=== PATIENT | male | born 1970 | race Two or more races ===

== ENCOUNTER 2020-04-06 06:04 | Emergency (ER) | payer OTHER, SELFPAY ==
[2020-04-06 06:16] VITALS: BP 117/89; PULSE 102; RESP 17; TEMP 36.4; O2SAT 95; BMI 27.2
[2020-04-06 06:33] VITALS: BP 117/89; PULSE 102; RESP 17; TEMP 36.6; O2SAT 97
--- NOTE | 2020-04-06 06:37 | ED_ITS ---
HPI - Psych General Chief Complaint: Psychiatric Symptoms Stated Complaint: CRISIS,ETOH INTOXICATION Time Seen by Provider: 04/06/20 06:37 Source: patient and EMS Mode of arrival: EMS Limitations: other (intoxication) History of Present Illness MD complaint: feels depressed, anxiety and substance abuse Onset (ago): day(s) (1) Duration: constant History of same: Yes Relieving factors: none Exacerbating factors: none Context: recent alcohol abuse Associated psychiatric symptoms: depression Associated symptoms: denies other symptoms Treatments prior to arrival: none Related Data Previous Rx's Medication Instructions Recorded clonidine HCl 0.1 mg tablet 0.1 mg PO DAILY #90 tab 03/18/20 fluoxetine 20 mg capsule 20 mg PO QAM #90 cap 03/18/20 nabumetone 500 mg tablet 500 mg PO BID #180 tab 03/18/20 Allergies Allergy/AdvReac Type Severity Reaction Status Date / Time haloperidol [From HALDOL] Allergy Intermediate TONGUE Unverified 02/15/20 14:48 SWELLING Review of Systems Review of Systems: Constitutional : No Fever, No Chills ENT/Mouth : No Ear Pain, No Nasal Congestion, No sore throat Eyes: No Eye Pain, No Swelling, No Redness Cardiovascular : No Chest Pain, No SOB Respiratory : No Cough, No Sputum, No Dyspnea Gastrointestinal : No Nausea, No Vomiting, No Diarrhea, No Hematochezia, No Melena Genitourinary : No Dysuria, No Urinary Frequency, No Hematuria Musculoskeletal : No Myalgias Skin : No Skin Lesions, No rash Neuro : No Weakness, No Numbness, No Paresthesias, No Dizziness, No Headache Psych : positive Anxiety, positive Depression, no SI/HI All other systems reviewed and are negative [facility] Past Medical History Attestation statement: The following information was validated with the patient. Medical History Alcoholism Bipolar 1 disorder Mood disorder Social History Social History (Updated 04/06/20 @ 06:38 by Sherry Carpenter DO) Alcohol intake: current Smoking Status: Current every day smoker Advance Directives: No Advance Directives Information Provided: No Physical Exam Vital Signs: Vital Signs: Last Vital Signs Temp 97.8 F 04/06/20 06:33 Pulse 102 H 04/06/20 06:33 Resp 17 04/06/20 06:33 BP 117/89 04/06/20 06:33 Pulse Ox 97 04/06/20 06:33 Body Mass Index 27.2 Appearance: Alert. Oriented X3. No acute distress. Eyes: Pupils equal, round and reactive to light. ENT: Pharynx normal. Neck: Normal inspection. Neck supple. CVS: Normal heart rate and rhythm. Pulses normal. Respiratory: No respiratory distress. Breath sounds normal. Abdomen: Soft and nontender. Skin: Skin warm and dry. Normal skin color. Normal skin turgor. Extremities: No lower extremity edema. No calf ttp Psych: positive anxiety and depression, no HI, when asked about SI do what you want with me. Neuro: Oriented X 3. No motor deficit. No sensory deficit. Course Course Course Narrative: N to see patient at his request c/o depression and some vague SI signed out to oncoming provider pending N MDM - Psych MDM Narrative Medical decision making narrative: 49 yo male with alcoholism and bipolar here asking for help, very vague, typical presentation for Cl - comes in intoxicated alludes to SI then once sober improves and is generally cleared by N. At this time he is calm will give him his dose of seroquel and reassess, I have low suspicion for SI at this time. Lab Data Labs: Lab Results 04/06/20 Range/Units 06:51 Urine Opiates Screen Not Detected (Not Detect) Ur Barbiturates Screen Not Detected (Not Detect) Ur Phencyclidine Scrn Not Detected (Not Detect) Ur Amphetamines Screen Not Detected (Not Detect) U Benzodiazepines Scrn Not Detected (Not Detect) Urine Cocaine Screen Not Detected (Not Detect) U Marijuana (THC) Screen Not Detected (Not Detect) Discharge Plan Discharge Clinical Impression: Alcohol intoxication Qualifiers: Complication of substance-induced condition: uncomplicated Qualified Code(s): F10.920 - Alcohol use, unspecified with intoxication, uncomplicated Patient Disposition: Home, Self-Care Instructions: Abuse of Alcohol (ED) Additional Instructions: return to ED for any worsening symptoms or concerns Prescriptions: No Action clonidine HCl 0.1 mg tablet 0.1 mg PO DAILY Qty: 90 RF: 3 fluoxetine 20 mg capsule 20 mg PO QAM Qty: 90 RF: 0 nabumetone 500 mg tablet 500 mg PO BID Qty: 180 RF: 0
--- NOTE | 2020-04-06 06:43 | PC.NURSE ---
Patient not so compliant with admission process needs lots of redirection, endorsees vague SI & vague plan, patient is under ETOH influence, provider just saw the patient, no new order at this time, will continue to monitor.
[2020-04-06] MEDS: QUEtiapine Fumarate 50 MG TABLET 100 MG PO (06:52)
--- NOTE | 2020-04-06 07:41 | PC.NURSE ---
Report received from [facility]. Pt awake, loud at times, demanding food, drink. Given as requested. Pt currently resting on bed.
[2020-04-06 07:50] LABS: Amphetamine Screen Urine Not Detected (Not Detect); Barbiturates, Urine Not Detected (Not Detect); Benzodiazepines Screen Urine Not Detected (Not Detect); Opiate Screen Urine Not Detected (Not Detect); Phencyclidine Screen Urine Not Detected (Not Detect)
[2020-04-06 07:51] LABS: Cannabinoid Screen Urine Not Detected (Not Detect); Cocaine Screen Urine Not Detected (Not Detect)
--- NOTE | 2020-04-06 13:35 | PC.NURSE ---
Pt awake, alert- ate lunch. Pt reports that he is still depressed, vague SI -'not ready to leave.' Dr Carpenter aware.
[2020-04-06 16:20] VITALS: BP 136/66; PULSE 93; RESP 18; TEMP 36.6; O2SAT 95
--- NOTE | 2020-04-06 17:58 | PC.NURSE ---
Pt resting, resp unlabored
--- NOTE | 2020-04-06 21:14 | PC.NURSE ---
[facility] called/updated about the patient, no ETA at this time but notified someone will see him tonight. Patient in bed appears sleeping, no distress observed/reported, will continue to monitor.
[2020-04-06 21:46] VITALS: BP 122/68; PULSE 72; RESP 18; TEMP 36.8; O2SAT 97
--- NOTE | 2020-04-06 22:36 | PC.NURSE ---
Patient in his room with [facility] clinician, patient seems fully engaged, no distress reported, will continue to monitor.
[2020-04-06] MEDS: QUEtiapine Fumarate 300 MG TABLET PO (23:03)
[2020-04-06] MEDS: QUEtiapine Fumarate 50 MG TABLET PO (23:03)
--- NOTE | 2020-04-06 23:20 | PC.NURSE ---
Patient requested his scheduled dose Seroquel 350 mg, patient is off his medication for just over a month, provider notified ordered serequel 350 mg/administered as ordered. Patient compliant with medication. No distress reported at this time. Will continue to monitor.
[2020-04-07 00:21] VITALS: BP 106/65; PULSE 90; RESP 17; TEMP 36.9; O2SAT 97
--- NOTE | 2020-04-07 00:34 | PC.NURSE ---
N updated patient's disposition, patient is in-patient EATS bed search, voluntary, in the event patient decided go home, patient can be discharged per [facility]. Will continue to monitor the patient.
--- NOTE | 2020-04-07 04:27 | PC.NURSE ---
Patient in bed appears sleeping, no distress observed/reported, respiration +/=/non-labored bilaterally, will continue to monitor, provide safety and comfort to promote healing.
--- NOTE | 2020-04-07 07:16 | PC.NURSE ---
RECEIVED REPORT FROM [facility]. PT SLEEPING ON STRETCHER IN POSITION OF COMFORT. SKIN WPD. RESPIRATIONS EVEN AND NON LABORED.
[2020-04-07 09:56] VITALS: RESP 16
--- NOTE | 2020-04-07 11:53 | PC.NURSE ---
PT REMAINS SLEEPING. SKIN WPD. RESPIRATIONS EVEN AND NON LABORED. WILL CONTINUE TO MONITOR.
[2020-04-07 12:00] VITALS: RESP 16
[2020-04-07 16:26] VITALS: BP 122/60; PULSE 68; RESP 18; O2SAT 97
--- NOTE | 2020-04-07 16:28 | PC.NURSE ---
PT DENIES SI/HI AT THIS TIME BUT THOUGHTS COME AND GO ALL DAY . DENIES PLAN AT THIS TIME. CALM & COOPERATIVE. RESTING COMFORTABLY. DINNER ORDERED. VS WNL.
--- NOTE | 2020-04-07 18:45 | PC.NURSE ---
100% DINNER TRAY CONSUMED
[2020-04-07 19:23] VITALS: BP 126/80; PULSE 66; RESP 18; TEMP 36.7; O2SAT 99
[2020-04-07] MEDS: QUEtiapine Fumarate 300 MG TABLET PO (20:06)
[2020-04-07] MEDS: hydrOXYzine HCL 25 MG TABLET PO (20:07)
[2020-04-07] MEDS: QUEtiapine Fumarate 50 MG TABLET PO (20:07)
--- NOTE | 2020-04-07 20:22 | PC.NURSE ---
pt medicated as per emr. given hygiene products.
--- NOTE | 2020-04-07 22:44 | PC.NURSE ---
PT IN HALLWAY, AGREEABLE WITH MOVE, RESTING COMFROTABLY
[2020-04-08] VITALS: BP 106/53; PULSE 66; RESP 18; TEMP 36.4; O2SAT 98
--- NOTE | 2020-04-08 00:54 | PC.NURSE ---
patient resting comfortably in hallway seen by megan is awaiting bed placement no c/o at this time
--- NOTE | 2020-04-08 03:14 | PC.NURSE ---
patient remains asleep no s/s of pain or discomfort awaiting bed search
[2020-04-08 04:00] VITALS: BP 96/54; PULSE 68; RESP 18; TEMP 36.9; O2SAT 98
[2020-04-08 06:00] VITALS: BP 116/68; PULSE 62; RESP 16; O2SAT 98
--- NOTE | 2020-04-08 06:42 | PC.NURSE ---
faxed patient summary to n office
[2020-04-08] MEDS: QUEtiapine Fumarate 100 MG TABLET PO (08:14)
--- NOTE | 2020-04-08 12:09 | PC.NURSE ---
resting quietly in [facility]ussell bed. calm. cooperative. steady on feet. skin pwd. unlabored resp. is aware of plan of care. no complaints at this time.
--- NOTE | 2020-04-08 14:35 | MHC.CARE ---
Addiction Consult Service note: This newswriter made aware by ED staff that [facility] secured EATS bed for patient at [facility]. Patient agreeable to being transported via [employer]. ED staff aware. Patient discharged and got in [employer] for transport to EATS bed.
== END 2020-04-08 14:36 | disposition home or self-care (01) ==
PROVIDERS: Emergency Medicine Emergency Medical Services; Emergency Provider Emergency Medicine; PCP Internal Medicine
DX: F33.1 Major depressive disorder, recurrent, moderate (principal); F10.920 Alcohol use, unspecified with intoxication, uncomplicated; F17.200 Nicotine dependence, unspecified, uncomplicated; Z71.6 Tobacco abuse counseling; Z79.899 Other long term (current) drug therapy
CPT/HCPCS: 80307; 99285

== ENCOUNTER 2020-06-03 23:54 | Inpatient (IN) | payer OTHER, SELFPAY ==
[2020-06-04] VITALS (12 sets, daily range): BP systolic 99–133; BP diastolic 53–80; PULSE 72–112; RESP 15–18; TEMP 36.2–37.1; O2SAT 95–100; BMI 27.0
--- NOTE | 2020-06-04 07:18 | CT_ITS ---
EXAMINATION: CT HEAD WITHOUT CONTRAST CLINICAL INFORMATION: Right upper extremity numbness. COMPARISON: CT scan of the head 08/04/2017. TECHNIQUE: Contiguous axial imaging was performed from the skull base to vertex without intravenous administration of contrast. This CT examination was performed using dose optimization techniques as appropriate, variously including the following: *Automated exposure control *Adjustment of mA and/or kV according to patient size (this includes techniques or standardized protocols for targeted exams where dose is matched to indication/reason for exam; i.e. extremities or head) *Use of iterative reconstruction technique DLP: 648 mGy-cm FINDINGS: There is a questionable focus of hypoattenuation involving the cortical flores matter of the left precentral gyrus in the hand motor association area. This finding is demonstrated on axial image 57 of 78 series 2. Flores-white matter differentiation is otherwise grossly preserved. No acute intracranial hemorrhage or abnormal extra axial collection. No intracranial mass effect or midline shift. Lateral and third ventricles are proportionate to the subarachnoid spaces. No hydrocephalus. The calvarium and skull base are intact. Mastoid air cells and middle ear cavities are well-aerated. Mild to moderate paranasal sinus disease primarily affecting the ethmoid air cells. CT/CT head/brain wo con IMPRESSION: Questionable abnormality involving the cortical flores matter of the left precentral gyrus in the hand motor association area. MRI of the brain can be obtained for better anatomic characterization of this finding.
--- NOTE | 2020-06-04 07:21 | ED.NEUROSD ---
HPI - Neuro Symptoms/Deficit General Chief Complaint: Neuro Symptoms/Deficit Stated Complaint: rt side weakness Time Seen by Provider: 06/04/20 06:49 Source: patient Mode of arrival: ambulatory History of Present Illness HPI Narrative: This is a 49-year-old male with history of bipolar who presents with complaints noticing right upper extremity numbness 2 days ago that resolved and then again yesterday noticed some numbness to the right side of his face that also resolved, patient denies any associated speech slurring or motor weakness on the affected side. Otherwise, he denies any fevers, chills, recent change in medications, abnormal movements. Related Data Home Medications Medication Instructions Recorded Confirmed Vistaril 25 mg PO NEEDED PRN 04/07/20 06/04/20 quetiapine [Seroquel] 100 mg PO QAM 04/07/20 06/04/20 quetiapine [Seroquel] 350 mg PO QPM 04/07/20 06/04/20 albuterol sulfate 2 puff INHALATION NEEDED PRN 06/04/20 06/04/20 fluoxetine 1 cap PO QAM 06/04/20 06/04/20 mirtazapine 1 tab PO BEDTIME 06/04/20 06/04/20 nabumetone 1 tab PO BID 06/04/20 06/04/20 naltrexone 1 tab PO DAILY 06/04/20 06/04/20 Allergies Allergy/AdvReac Type Severity Reaction Status Date / Time haloperidol [From HALDOL] Allergy Intermediate TONGUE Verified 04/07/20 14:51 SWELLING Review of Systems Review of Systems: Pertinent positives and negatives as stated in HPI 10 point review of systems otherwise negative. [facility] Past Medical History Source: nursing notes reviewed Medical History Alcoholism Bipolar 1 disorder Mood disorder Social History Social History Alcohol intake: current Alcohol intake frequency: 3 or more drinks per day Alcohol type: beer Smoking Status: Current every day smoker Smoked in Last 30 Days: Yes Use of substances other than those prescribed or required for medical reasons: No Advance Directives: No Physical Exam Vital Signs: Vital Signs: Last Vital Signs Temp 98.8 F 06/04/20 08:20 Pulse 88 01/05/21 08:20 Resp 16 06/04/20 08:20 BP 113/56 L 06/04/20 08:20 Pulse Ox 95 06/04/20 08:20 Body Mass Index 27.0 VITAL SIGNS: Reviewed. GENERAL: Well developed, well nourished, in no acute distress. HEAD: Normocephalic/atraumatic, EYES: PERRLA, EOMI intact without pain, no nystagmus/pallor/icterus noted OROPHARYNX: no oral lesions noted, posterior pharynx clear and non-erythematous without noted tonsillar enlargement/erythema/exudates NECK: Supple, no adenopathy LUNGS: Normal breath sounds. No adventitious sounds or accessory muscle use. SpO2<96> CARDIOVASCULAR: Regular rate and rhythm without noted murmurs, no JVD or lower extremity edema. ABDOMEN: Soft, non-tender, non-distended with bowel sounds. No rigidity. No guarding. No palpable masses or hernias noted SKIN: Inspection of the skin reveals no rashes, ulcerations, jaundice, pallor, or petechiae. NEUROLOGIC: Alert and oriented x 4. Strength and sensation to light touch were grossly intact x 4, no facial asymmetry, no pronator drift, cranial nerves 2-12 are grossly intact.. Course Course Course Narrative: This is a 49-year-old male with history and clinical presentation suggestive of possible neuropathy versus radiculopathy, but doubt intracranial ischemic event. However, will evaluate for possible ischemic event without residual affects via CT of the head, lab work. A review of CT of the head it is being read as a questionable abnormality in the cortical marrero matter of the left precentral gyrus in the hand motor associations area and recommendations are for MRI of the brain. Otherwise, all investigations were reviewed without significant findings. Discussed the case with inpatient hospitalist team who is agreeable with admission. Reevaluation(s) Reevaluation #1: Spoke with Dr Bone who agrees with proceeding with inpatient MRI and further evaluation for ischemia vs demyelination. MDM - Neuro Symptoms/Deficit Lab Data Result diagrams: 06/04/20 08:36 06/04/20 08:36 Labs: Lab Results 06/04/20 06/04/20 06/04/20 Range/Units 08:36 08:36 08:36 WBC 8.6 (4.8-10.8) X10*3/uL RBC 4.39 L (4.60-5.80) X10*6/uL Hgb 13.1 L (14.0-18.0) g/dl Hct 40.0 L (42-52) % MCV 91.1 (80-98) fL MCH 29.8 (27.0-33.0) pg MCHC 32.8 (31.0-36.0) g/dl RDW 13.2 (11.0-16.0) % Plt Count 326 (160-400) X10*3/uL MPV 8.9 L (9.4-12.4) fL Immature Gran % (Auto) 0.2 (0.0-0.4) % Neut % (Auto) 56.7 (45-73) % Lymph % (Auto) 33.6 (20-40) % Maries % (Auto) 5.3 (2-11) % Eos % (Auto) 3.9 (0-4) % Baso % (Auto) 0.3 (0-2) % Lymph # (Auto) 2.9 (1.2-4.9) X10*3/uL Maries # (Auto) 0.5 (0.1-1.2) X10*3/uL Eos # (Auto) 0.3 (0.0-0.4) X10*3/uL Baso # (Auto) 0.0 (0.0-0.2) X10*3/uL Abs Immat Gran (auto) 0.02 (0.00-0.03) X10*3/uL Absolute Neuts (auto) 4.9 (2.0-8.3) X10*3/uL Absolute Nucleated RBC 0.000 (0.0-0.012) X10*3/uL Nucleated RBC % (auto) 0.0 (0.0-0.2) /100WBC Sodium 137 (135-145) mmol/L Potassium 4.2 (3.3-5.1) mmol/l Chloride 107 (96-108) mmol/L Carbon Dioxide 22 (22-29) mmol/L Anion Gap 12 (12-20) BUN 11 (9-16) mg/dL Creatinine 0.81 (0.5-1.4) mg/dL Estim Creat Clear Calc 111.5 Estimated GFR > 60 Random Glucose 87 (60-115) mg/dL Calcium 8.3 L (8.4-10.2) mg/dL Total Bilirubin 0.3 (0.0-1.0) mg/dL AST 20 (5-37) U/L ALT 26 (0-40) U/L Alkaline Phosphatase 60 (39-117) U/L Total Protein 6.8 (6.5-8.0) g/dL Albumin 3.9 (3.5-5.0) g/dL Urine Color Urine Appearance Urine pH (5.0-8.0) Ur Specific [place] (1.005-1.025) Urine Protein (NEG-TRACE) MG/DL Urine Glucose (UA) (NEG) MG/DL Urine Ketones (NEG) MG/DL Urine Blood (NEG) Urine Nitrite (NEG) Ur Leukocyte Esterase (NEG) Urine Opiates Screen (Not Detect) Ur Barbiturates Screen (Not Detect) Ur Phencyclidine Scrn (Not Detect) Ur Amphetamines Screen (Not Detect) U Benzodiazepines Scrn (Not Detect) Urine Cocaine Screen (Not Detect) U Marijuana (THC) Screen (Not Detect) Ethyl Alcohol < 10 mg/dL 06/04/20 06/04/20 Range/Units 08:36 08:37 WBC (4.8-10.8) X10*3/uL RBC (4.60-5.80) X10*6/uL Hgb (14.0-18.0) g/dl Hct (42-52) % MCV (80-98) fL MCH (27.0-33.0) pg MCHC (31.0-36.0) g/dl RDW (11.0-16.0) % Plt Count (160-400) X10*3/uL MPV (9.4-12.4) fL Immature Gran % (Auto) (0.0-0.4) % Neut % (Auto) (45-73) % Lymph % (Auto) (20-40) % Maries % (Auto) (2-11) % Eos % (Auto) (0-4) % Baso % (Auto) (0-2) % Lymph # (Auto) (1.2-4.9) X10*3/uL Maries # (Auto) (0.1-1.2) X10*3/uL Eos # (Auto) (0.0-0.4) X10*3/uL Baso # (Auto) (0.0-0.2) X10*3/uL Abs Immat Gran (auto) (0.00-0.03) X10*3/uL Absolute Neuts (auto) (2.0-8.3) X10*3/uL Absolute Nucleated RBC (0.0-0.012) X10*3/uL Nucleated RBC % (auto) (0.0-0.2) /100WBC Sodium (135-145) mmol/L Potassium (3.3-5.1) mmol/l Chloride (96-108) mmol/L Carbon Dioxide (22-29) mmol/L Anion Gap (12-20) BUN (9-16) mg/dL Creatinine (0.5-1.4) mg/dL Estim Creat Clear Calc Estimated GFR Random Glucose (60-115) mg/dL Calcium (8.4-10.2) mg/dL Total Bilirubin (0.0-1.0) mg/dL AST (5-37) U/L ALT (0-40) U/L Alkaline Phosphatase (39-117) U/L Total Protein (6.5-8.0) g/dL Albumin (3.5-5.0) g/dL Urine Color YELLOW Urine Appearance CLEAR Urine pH 6.0 (5.0-8.0) Ur Specific [place] >= 1.030 H (1.005-1.025) Urine Protein NEG (NEG-TRACE) MG/DL Urine Glucose (UA) NEG (NEG) MG/DL Urine Ketones 5 (NEG) MG/DL Urine Blood NEG (NEG) Urine Nitrite NEG (NEG) Ur Leukocyte Esterase NEG (NEG) Urine Opiates Screen Not Detected (Not Detect) Ur Barbiturates Screen Not Detected (Not Detect) Ur Phencyclidine Scrn Not Detected (Not Detect) Ur Amphetamines Screen Not Detected (Not Detect) U Benzodiazepines Scrn Not Detected (Not Detect) Urine Cocaine Screen Not Detected (Not Detect) U Marijuana (THC) Screen Not Detected (Not Detect) Ethyl Alcohol mg/dL NIH Stroke Scale Internal: Initial- Upon Arrival Level of Consciousness: Alert Level of Consciousness Questions: Answers both questions correctly Level of Consciousness Commands: Performs both tasks correctly Best Gaze: Normal Visual: No visual loss Facial Palsy: Normal Motor Arm (Right): No drift Motor Arm (Left): No drift Motor Leg (Right): No drift Motor Leg (Left): No drift Limb Ataxia: Absent Sensory: Normal Best Language: No aphasia Dysarthia: Normal Extinction and Inattention: No abnormality Score: 0 Discharge Plan Discharge Clinical Impression: Brain TIA Patient Disposition: Admitted As Inpatient
[2020-06-04 08:43] LABS: MANUAL DIFF FLAG NO
[2020-06-04 08:44] LABS: Basophils Percent Auto 0.3 % (0-2); Eosinophils Absolute Auto 0.3 X10*3/uL (0.0-0.4); Eosinophils Percent Auto 3.9 % (0-4); Hemoglobin 13.1 g/dl (14.0-18.0); Imm Gran Abs Auto 0.02 X10*3/uL (0.00-0.03); Imm Gran Pct Auto 0.2 % (0.0-0.4); Lymphocytes Absolute Auto 2.9 X10*3/uL (1.2-4.9); Lymphocytes Percent Auto 33.6 % (20-40); Mean Corpuscular HGB Conc 32.8 g/dl (31.0-36.0); Mean Corpuscular Hemoglobin 29.8 pg (27.0-33.0); Mean Corpuscular Volume 91.1 fL (80-98); Mean Platelet Volume 8.9 fL (9.4-12.4); Monocytes Absolute Auto 0.5 X10*3/uL (0.1-1.2); Monocytes Percent Auto 5.3 % (2-11); Neutrophils Absolute Auto 4.9 X10*3/uL (2.0-8.3); Neutrophils Percent Auto 56.7 % (45-73); Platelet Count 326 X10*3/uL (160-400); Red Blood Count 4.39 X10*6/uL (4.60-5.80); Red Cell Distribution Width 13.2 % (11.0-16.0); White Blood Count 8.6 X10*3/uL (4.8-10.8)
[2020-06-04 08:50] LABS: Glucose Urine UA NEG (NEG); Leukocyte Esterase Urine NEG (NEG); Nitrite Urine NEG (NEG); Specific Gravity - Urine >= 1.030 (1.005-1.025); Urine Blood NEG (NEG); Urine Ketones 5 MG/DL (NEG); Urine Protein NEG (NEG-TRACE)
[2020-06-04 08:51] LABS: Appearance Urine CLEAR; Color Urine YELLOW
[2020-06-04 09:09] LABS: Ethanol < 10 mg/dL
[2020-06-04 09:12] LABS: Amphetamine Screen Urine Not Detected (Not Detect); Barbiturates, Urine Not Detected (Not Detect); Benzodiazepines Screen Urine Not Detected (Not Detect); Cannabinoid Screen Urine Not Detected (Not Detect); Cocaine Screen Urine Not Detected (Not Detect); Opiate Screen Urine Not Detected (Not Detect); Phencyclidine Screen Urine Not Detected (Not Detect)
[2020-06-04 09:13] LABS: Alanine Aminotransferase 26 U/L (0-40); Albumin Level 3.9 g/dL (3.5-5.0); Alkaline Phosphatase 60 U/L (39-117); Anion Gap 12 (12-20); Aspartate Amino Transferase 20 U/L (5-37); Bilirubin Total 0.3 mg/dL (0.0-1.0); Blood Urea Nitrogen 11 mg/dL (9-16); Calcium 8.3 mg/dL (8.4-10.2); Carbon Dioxide 22 mmol/L (22-29); Chloride 107 mmol/L (96-108); Creatinine Clr Calc Pharmacy 111.5; Estimated Glomerular Filt Rate > 60; Glucose Random 87 mg/dL (60-115); Potassium 4.2 mmol/l (3.3-5.1); Sodium 137 mmol/L (135-145); Total Protein 6.8 g/dL (6.5-8.0)
--- NOTE | 2020-06-04 09:17 | MR_ITS ---
EXAMINATION: MR BRAIN WITHOUT CONTRAST CLINICAL INFORMATION: Facial/right upper extremity numbness/weakness and CT findings. COMPARISON: Head CT 06/04/2020. TECHNIQUE: Multiplanar, multisequence imaging of the brain was performed without intravenous contrast. FINDINGS: Small and punctate foci of restricted diffusion are seen in the high left parasagittal frontal and parietal lobe compatible with acute border zone ischemia. No large or confluent infarction is seen. There is no mass, hemorrhage, or extra-axial fluid collection. The ventricles are normal in size and configuration without evidence of hydrocephalus. The major arterial flow voids are preserved at the skull base. The right maxillary sinus is atelectatic. There is moderate polypoid ethmoid mucosal thickening. MR/MR head/brain wo con IMPRESSION: Small foci of acute border zone ischemia is seen in the high left parasagittal frontoparietal region. No large or confluent infarction. No hemorrhage or mass identified.
--- NOTE | 2020-06-04 09:51 | P.HPHOSP_ITS ---
History of Present Illness Date of Service: 06/04/20 <Aishwarya Doshi NP - Last Filed: 06/04/20 16:42> Chief Complaint: Weakness <Aishwarya Doshi NP - Last Filed: 06/04/20 16:42> 49-year-old man presented to the ER with complaints of right-sided weakness. He reports yesterday he started to feel electricity to the right side of his face and then he felt a burning to his right arm and right leg and then his right arm felt weak. He reported that this happened for approximately 15 minutes but took most of the day to feel normal again. He reported a headache with no visual changes, chest pain, shortness of breath, loss of consciousness. He did take some ibuprofen and he also drank about 12-[address] showed questionable abnormality involving the cortical marrero matter of the left precentral gyrus, MRI is pending. Labs are within acceptable limits. His blood pressure is on the softer side which seems to be chronic, he has no dizziness. He received a full dose of aspirin in the ER. He will be admitted for further management and treatment of possible TIA. <Aishwarya Doshi NP - Last Filed: 06/04/20 16:42> Review of Systems Review of Systems: Denies any recent fever chills or decrease in appetite respiratory denies any shortness of breath coverage production cardiovascular is adjustment of any PND or edema gastrointestinal denies any dysphagia abdominal pain nausea vomiting or diarrhea genitourinary denies any dysuria frequency or hematuria musculoskeletal left rib pain neuropsych See HPI all other systems reviewed are negative <Aishwarya Doshi NP - Last Filed: 06/04/20 16:42> [facility] Medical History: Medical History (Updated 06/04/20 @ 17:31 by Britany Bone MD) Alcoholism Anxiety Bipolar 1 disorder Clavicle fracture Depression H/O: HTN (hypertension) Mood disorder <Aishwarya Doshi NP - Last Filed: 06/04/20 16:42> Pertinent family history: no cardiac disease <Aishwarya Doshi NP - Last Filed: 06/04/20 16:42> Social History: Social History Household Members: None Alcohol intake: current Alcohol intake frequency: 3 or more drinks per day Alcohol type: beer Smoking Status: Current every day smoker Tobacco Type: Cigarette Packs Per Day: 1 Cigarettes Per Day: 20.0 Smoked in Last 30 Days: Yes Patient Interested in Nicotine Replacement: No Patient Given Instructions on How to Stop Smoking: Yes Date Education Initiated: 06/04/20 Use of substances other than those prescribed or required for medical reasons: No Currently Displaying Signs/Symptoms of Drug Intoxication Withdrawal: No Have you been hit, kicked, punched, or otherwise hurt by someone within the past year? If so, by whom?: No Do you feel safe in your current relationship?: Yes Is there a partner from a previous relationship who is making you feel unsafe now?: No Are you made to feel afraid or neglected: No Advance Directives: No Do you have thoughts of harming others: None Do you have a plan to hurt others: No Plan Recently lost weight without trying: No service: No <Aishwarya Doshi NP - Last Filed: 06/04/20 16:42> Meds Allergies/Adverse reactions: Allergies Allergy/AdvReac Type Severity Reaction Status Date / Time haloperidol [From HALDOL] Allergy Intermediate TONGUE Verified 04/07/20 14:51 SWELLING <Aishwarya Doshi NP - Last Filed: 06/04/20 16:42> Home medications: Home Medications Medication Instructions Recorded Confirmed Type Vistaril 25 mg PO NEEDED PRN 04/07/20 06/04/20 History quetiapine [Seroquel] 100 mg PO QAM 04/07/20 06/04/20 History quetiapine [Seroquel] 350 mg PO QPM 04/07/20 06/04/20 History albuterol sulfate 2 puff INHALATION NEEDED PRN 06/04/20 06/04/20 History fluoxetine 1 cap PO QAM 06/04/20 06/04/20 History mirtazapine 1 tab PO BEDTIME 06/04/20 06/04/20 History nabumetone 1 tab PO BID 06/04/20 06/04/20 History naltrexone 1 tab PO DAILY 06/04/20 06/04/20 History <Aishwarya Doshi NP - Last Filed: 06/04/20 16:42> Physical Exam Vital Signs and Narrative: Vital Signs: Last Vital Signs Temp 98.8 F 06/04/20 08:20 Pulse 88 01/05/21 08:20 Resp 16 06/04/20 08:20 BP 113/56 L 06/04/20 08:20 Pulse Ox 95 06/04/20 08:20 Body Mass Index 27.0 <Aishwarya Doshi NP - Last Filed: 06/04/20 16:42> Appearing in no acute distress head is normocephalic atraumatic eyes pupils are PERRLA sclera is anicteric mouth throat mucous membranes are intact and moist neck is supple no lymphadenopathy, no JVD noted lung sounds are clear to auscultation heart regular rate rhythm, clear S1, S2 positive bowel sounds, abdomen is soft, nontender neuro patient is alert x3, no focal deficits, 5/5 strength to upper and lower extremities bilaterally <Aishawrya Doshi NP - Last Filed: 06/04/20 16:42> Results Labs CBC and Chem 7: : 06/05/20 04:56 06/05/20 04:56 <Aishwarya Doshi NP - Last Filed: 06/04/20 16:42> Labs: Laboratory Results - last 24 hr 06/04/20 06/04/20 06/04/20 08:36 08:36 08:36 MCV 91.1 MCH 29.8 MCHC 32.8 RDW 13.2 Plt Count 326 MPV 8.9 L Immature Gran % (Auto) 0.2 Neut % (Auto) 56.7 Lymph % (Auto) 33.6 [place] % (Auto) 5.3 Eos % (Auto) 3.9 Baso % (Auto) 0.3 Lymph # (Auto) 2.9 [place] # (Auto) 0.5 Eos # (Auto) 0.3 Baso # (Auto) 0.0 Abs Immat Gran (auto) 0.02 Absolute Neuts (auto) 4.9 Absolute Nucleated RBC 0.000 Nucleated RBC % (auto) 0.0 Anion Gap 12 Estim Creat Clear Calc 111.5 Estimated GFR > 60 Random Glucose 87 Calcium 8.3 L Total Bilirubin 0.3 AST 20 ALT 26 Alkaline Phosphatase 60 Total Protein 6.8 Albumin 3.9 Urine Color Urine Appearance Urine pH Ur Specific [place] Urine Protein Urine Glucose (UA) Urine Ketones Urine Blood Urine Nitrite Ur Leukocyte Esterase Urine Opiates Screen Ur Barbiturates Screen Ur Phencyclidine Scrn Ur Amphetamines Screen U Benzodiazepines Scrn Urine Cocaine Screen U Marijuana (THC) Screen Ethyl Alcohol < 10 06/04/20 06/04/20 08:36 08:37 MCV MCH MCHC RDW Plt Count MPV Immature Gran % (Auto) Neut % (Auto) Lymph % (Auto) [place] % (Auto) Eos % (Auto) Baso % (Auto) Lymph # (Auto) [place] # (Auto) Eos # (Auto) Baso # (Auto) Abs Immat Gran (auto) Absolute Neuts (auto) Absolute Nucleated RBC Nucleated RBC % (auto) Anion Gap Estim Creat Clear Calc Estimated GFR Random Glucose Calcium Total Bilirubin AST ALT Alkaline Phosphatase Total Protein Albumin Urine Color YELLOW Urine Appearance CLEAR Urine pH 6.0 Ur Specific [place] >= 1.030 H Urine Protein NEG Urine Glucose (UA) NEG Urine Ketones 5 Urine Blood NEG Urine Nitrite NEG Ur Leukocyte Esterase NEG Urine Opiates Screen Not Detected Ur Barbiturates Screen Not Detected Ur Phencyclidine Scrn Not Detected Ur Amphetamines Screen Not Detected U Benzodiazepines Scrn Not Detected Urine Cocaine Screen Not Detected U Marijuana (THC) Screen Not Detected Ethyl Alcohol <Aishwarya Doshi NP - Last Filed: 06/04/20 16:42> Imaging Radiologist's Impressions: Impressions Head CT 06/04/20 07:18 IMPRESSION: Questionable abnormality involving the cortical marrero matter of the left precentral gyrus in the hand motor association area. MRI of the brain can be obtained for better anatomic characterization of this finding. <Aishwarya Doshi NP - Last Filed: 06/04/20 16:42> Assessment and Plan (1) Brain TIA: Status: Acute <Aishwarya Doshi NP - Last Filed: 06/04/20 16:42> 49-year-old man admitted with possible TIA. Stroke. Neurology consultation, continue aspirin. Echo, carotid doppler ultrasound, PT/OT Left rib pain. Ran into a door on [address]. Will obtain x-ray, lidocaine patch, warm compress, splint. Next Asthma. Albuterol as needed. Alcohol abuse. No signs of withdrawal at this time will place on CIWA scale if patient develops withdrawal symptoms consider starting phenobarbital. Tobacco use. Discussed smoking cessation. Nicotine replacement therapy. Depression/anxiety. Continue home medications. DVT prophylaxis with Lovenox. Case discussed with Dr. Reynolds Full code <Aishwarya Doshi NP - Last Filed: 06/04/20 16:42>
[2020-06-04] MEDS: Aspirin 81 MG TAB.CHEW 324 MG PO (10:01)
[2020-06-04] MEDS: 0.9 % Sodium Chloride 1,000 ML 999 ML IV (10:11)
--- NOTE | 2020-06-04 10:44 | PC.NURSE ---
PT SEEN BY HOSP TAG METER OPERATOR (NESTOR), PT AWARE OF PLAN OF CARE FOR ADMISSION TO HOSP.
[2020-06-04] MEDS: LORazepam 2 MG/ML VIAL IVPUSH (11:20)
--- NOTE | 2020-06-04 11:20 | XR_ITS ---
EXAMINATION: XR RIBS, LEFT CLINICAL INFORMATION: Trauma COMPARISON: Previous chest x-ray July 2017 TECHNIQUE: 3 views of the left ribs and one view of the chest were obtained. FINDINGS: The cardiac and mediastinal contours are stable. The lungs are clear. There is no pleural effusion or pneumothorax. There is an acute minimally displaced left anterior 10th rib fracture. There are old left anterior sixth and seventh rib fractures and old left posterior seventh rib fracture that are similar to previous chest x-ray July 2017. There are degenerative changes of the spine. XR/XR ribs LT min 3V w CXR1V IMPRESSION: Acute left anterior 10th rib fracture. Old left-sided rib fractures similar to 2018 and chest x-ray. No evidence for acute disease in the chest.
--- NOTE | 2020-06-04 11:20 | PC.NURSE ---
PT C/O BEING CLAUSTROPHOBIC WHILE AT MRI, PT MED X 1 WITH AIVAN 2MG IVP
[2020-06-04] MEDS: FLUoxetine HCl 20 MG CAPSULE PO (12:00)
[2020-06-04] MEDS: QUEtiapine Fumarate 100 MG TABLET PO (12:00)
--- NOTE | 2020-06-04 12:42 | PC.NURSE ---
nurse to nurse given to fiona (rn). pt aware of plan of care for admission to hosp.
--- NOTE | 2020-06-04 13:12 | US_ITS ---
EXAMINATION: US EXTRACRANIAL CAROTID DUPLEX, BILATERAL CLINICAL INFORMATION: CVA COMPARISON: None TECHNIQUE: Real-time ultrasound and Doppler techniques (integrating B-mode 2-D vascular images, Doppler spectral analysis and color-flow Doppler imaging) were utilized to interrogate the extracranial carotid arteries, the vertebral arteries and proximal subclavian arteries bilaterally. The degree of stenosis is determined by criteria similar to NASCET. FINDINGS: Right Side: 1. There is mild to moderate atherosclerotic plaque seen in the bifurcation/proximal ICA region. 2. The common carotid artery PSV proximally is 113 cm/s and distally 102 cm/s. 3. The proximal internal carotid artery velocities are 138 cm/s systolic and 61 cm/s diastolic. 4. The proximal external carotid artery PSV is 160 cm/s. 5. The vertebral artery shows antegrade flow. 6. The subclavian artery waveforms are normal. Left Side: 1. There is marked severe atherosclerotic plaque seen in the bifurcation/proximal ICA region. 2. The common carotid artery PSV proximally is 100 cm/s and distally 90 cm/s. 3. The proximal internal carotid artery velocities are 464 cm/s systolic and 187 cm/s diastolic. 4. The proximal external carotid artery PSV is 140 cm/s. 5. The vertebral artery shows antegrade flow. 6. The subclavian artery waveforms are normal. US/US carotid duplex BI IMPRESSION: 1. RIGHT: Moderate, hemodynamically significant stenosis of the proximal right internal carotid artery corresponding to a 50-79% stenosis by velocity criteria. 2. LEFT: Severe, hemodynamically significant stenosis of the proximal left internal carotid artery corresponding to an 80-99% stenosis by velocity criteria. This critical result was discussed with Aishwarya fine at 5:25 PM on the day the exam and it was ascertained that the content and urgency of the report was understood at the time of direct communication.
--- NOTE | 2020-06-04 13:12 | CA_ITS ---
Transthoracic Echocardiogram Patient (Last, First, Middle): Cl Jessica, Gender: Male Date of : 1970 Age: 49 Procedure Date: 06/04/2020 Procedure Type: Transthoracic Echocardiogram Location: [facility] [place] Height: 180.34 cm Weight: 81.65 kg BSA: 2.02 m2 Heart Rate: bpm BP: 119 / 55 mmHg Litigation Counsel: VH Referring MD: Aishwarya Doshi NP Symptoms: stroke Study Quality: Good ECG Rhythm: Sinus Conclusions: - Normal left ventricular size and systolic function. - Normal right ventricular cavity size and systolic function. - The left atrium is mildly dilated. - There is no evidence of interatrial shunt by color Doppler and contrast. - There is mild thickening of the aortic valve. Findings Left Ventricle Normal left ventricular size and systolic function. There is mildly increased left ventricular wall thickness. The visually estimated ejection fraction is between 55-60%. There is no evidence of regional wall motion abnormalities. Diastolic function is normal for age. Right Ventricle Normal right ventricular cavity size and systolic function. Atria The left atrium is mildly dilated. There is no evidence of interatrial shunt by color Doppler and contrast. The right atrium is normal in size. Aortic Valve There is a normal trileaflet aortic valve. There is mild thickening of the aortic valve. There is no aortic valve stenosis. There is no aortic valve regurgitation. Mitral Valve The mitral valve appears normal. There is mild mitral annular calcification. There is trace mitral valve regurgitation. There is no mitral valve stenosis. Pulmonic Valve The pulmonic valve is likely normal. Tricuspid Valve Normal tricuspid valve structure and function. There is trace tricuspid valve regurgitation. Normal right atrial pressure. There is no evidence of pulmonary hypertension. Great Vessels All visible segments of the aorta are normal in size. The visualized portions of the pulmonary artery and branches are normal. Venous The inferior vena cava is normal in size and collapses greater than 50% with inspiration. Pericardium/Pleural There is no evidence of pericardial effusion. Prior Study Comparison No prior study available for comparison. Measurements 2D Linear Measurements IVSd: 1.21 0.6-0.9/0.6-1.0 cm LVIDd: 4.57 3.9-5.3/4.2-5.9 cm LVIDd Index: 2.26 2.4-3.2/2.2-3.1 cm/m2 LVIDs: 2.71 2.0-3.6 cm LVPWd: 1.22 0.7-1.1 cm Ao Root: 3.10 2.1-3.5 cm LA Diam: 3.60 2.7-3.8/3.0-4.0 cm LAIDs Index: 1.78 1.5-2.3 cm/m2 LV Mass: 257.46 67-162/88-224 g LV Mass Index: 127.45 43-95/49-115 g/m2 LVOT Diam: 2.30 3.0+(-)1.3 cm 2D Systolic Function EF 4C: 66.20 >55% EF 2C: 57.30 >55% EF BiP: 62.10 >55% Mitral Valve MV Pk E: 0.71 MV PK A: 0.53 MV Decel Time: 180.00 E/A: 1.30 E'Lateral: 16.10 E'Medial: 9.28 E/E' Med: 7.60 E/E' Lat: 4.40 Aortic Valve AoV Pk Ky: 1.28 AoV Mn Ky: 0.83 AoV VTI: 0.29 AoV Pk Grad: 7.00 Aov Mn Grad: 3.00 LEVI Cont.VTI: 3.59 LVOT LVOT Pk Ky: 1.12 LVOT Mn Ky: 0.72 LVOT VTI: 0.25 LVOT Pk Grad: 5.00 LVOT Mn Grad: 3.00 LVOT Diam: 2.30 LVOT Area: 4.15 Diastolic Function MV Pk E: 0.71 MV Pk A: 0.53 E/A: 1.30 E'Medial: 9.28 E/E' Med: 7.60 E' Laterial: 16.10 E/E' Lat: 4.40 Tricuspid Valve TR Pk Ky: 2.22 TR Pk Grad: 20.00 RA Press: 3.00 RVSP: 23.00 Great Vessels Aorta Ao Root-2D: 3.10 2.0-3.7 cm Pulmonary Valve PV Pk Ky: 0.98 Peak PV Grad: 4.00 Updated in Other Vendor System with Status of Final Khadar Lazo MD electronically signed on 06/05/2020 2:05:08 PM with status of Final
[2020-06-04 13:47] LABS: COVID-19 Test Negative (Negative)
--- NOTE | 2020-06-04 14:06 | MHC.STROKE ---
Addendum entered by Areli Amezcua RN 06/12/20 16:06: LATE ENTRY, LKW WAS 06/01/20 AT 2200 PER PATIENT. Addendum entered by Areli Amezcua RN 06/07/20 11:29: I REVIEWED THE CARE TEAM NOTE, THANK YOU. I MET WITH THE PATIENT ADMITTED THAT HE FELT A CONNECTION TO [facility] AND REALLY APPRECIATED HIS ADVICE. WE DISCUSSED HIS DIAGNOSIS, RISK FACTORS, DISCHARGE PLAN. WE DISCUSSED THE ETOH AND HE HAS AGREED TO STOP DRINKING, I DID EXPLAIN HOW HIS DRINKING COULD HAVE CONTRIBUTED TO HIS STROKE, HIS HTN, HLD, SMOKING, CAROTID DISEASE AND THE CAROTID SURGERY. HE DID MENTION THAT HIS MOTHER HAD A STROKE AND IS IN A MCC AND HE WOULD NEVER WANT TO BE IN THAT SITUATION. HE UNDERSTANDS WHAT HE NEEDS TO DO TO IMPROVE HIS HEALTH STATUS AND WHY. DR JAVED IS HIS PCP AND HE WILL MAKE ARRANGEMENTS TO SEE HIM NEXT WEEK, HE GETS HIS MEDICATIONS FROM THE [facility] AND THEY CLOSE AT 4 PM. I DID RELAY THIS INFORMATION TO DR THACKER AND THE NURSE AND VOLUNTEER SERVICES MANAGER. I STRESSED THE MEDICATION COMPLIANCE AND WHY, HE SHOULD CALL 911 AND RETURN TO THE HOSPITAL IF HE EXPERIENCES ANY STROKE SYMPTOMS AGAIN SOON POSSIBLE. HE MAY BE HAVING THE CEA WITHIN THE NEXT FEW WEEKS AND HE SHOULD TAKE IT EASY UNITL THE SURGERY, ABSOLUTELY NO DRINKING ALCOHOL. HE UNDERSTANDS AND HE SAID HE WILL COMPLY. Addendum entered by Areli Amezcua RN 06/05/20 14:57: RECOMMENDING CARE TEAM CONSULT FOR ETOH COUNSELING, PATIENT IS ALSO BIPOLAR. I DID SPEAK WITH CASE MANAGEMENT HERB AND SHE WILL CONTACT THEM. ALSO SMOKING CESSATION EDUCATION ATTEMPTED BUT PATIENT IS NOT INTERESTED. SUGGESTING NICOTINE PATCH. Original Note: 06/03/20 EMS PRE-NOTIFIED 2345, RIGHT SIDED WEAKNESS ON AND OFF FOR 2 DAYS. ARRIVED. 2354. LAST KNOWN WELL PER PATIENT 06/01/20 AT 2200. SYMPTOMS IMPROVING. NIHSS = [address] GARIBAY. HE ADMITS TO DRINKING A LOT 06/02/20. HE PASSED HIS SWALLOW SCREEN, ASPIRIN GIVEN. CT DONE, NO BLEED, MRI CONFIRMED + ACUTE STROKE LEFT HIGH FRONTAL PARIETAL AREA. I DID SPEAK WITH THE PATIENT AND SHOWED HIM A SCREENSHOT OF HIS MRI AND EXPLAINED THE PLAN OF CARE. DUE TO HIS AGE RECOMMENDING CAROTID US AND ECHO WITH BUBBLE. STROKE RISK FACTORS INCLUDE HTN, ETOH AND SMOKER. STROKE EDUCATION INITIATED. NICOTINE PATCH ALSO RECOMMENDED. LIPID PANEL PENDING IF LDL > 70 CONSIDER A STATIN. PT AND OT EVALS ORDERED. I WILL CONTINUE TO FOLLOW.
[2020-06-04] MEDS: 0.9 % Sodium Chloride Flush 3 ML SYRINGE IVFLUSH ×2 (17:02→21:09)
--- NOTE | 2020-06-04 17:28 | P.CNNE_ITS ---
History of Present Illness Data of Consult Service Date: 06/04/20 Primary Care Provider: Unknown Physician HPI Reason for consult: Right-sided numbness This is a 49-year-old man with a history of depression asthma and alcohol abuse who presented with one-day history of abnormal sensation in the right face and right arm and leg that cleared over the rest of the day and the next day he noted some right-sided weakness and numbness and decided to come in. His CAT scan showed findings consistent with an acute stroke in the parietal cortex on the left and an MRI confirmed multiple acute infarcts in the left parietal cortex. He was therefore admitted for further evaluation of his stroke. Review of Systems Eyes: Eyes: Reports no additional eye complaints ENT: Reports system reviewed and no additional complaints, except as docume nted and Reports Normal hearing present Cardiovascular: Cardiovascular: Reports no additional cardiovascular complaints Respiratory: Respiratory: Reports no additional respiratory complaints Gastrointestinal: Gastrointestinal: Reports no additional gastrointestinal complaints Genitourinary: Genitourinary: Reports no additional male genitourinary complaints Musculoskeletal: Musculoskeletal: Reports no additional musculoskeletal complaints Integumentary/Breasts: Skin/Breast: Reports system reviewed and no additional complaints, except as docu Neurologic: Reports as per HPI and Reports Normal hearing present Psychiatric: Psychiatric: Reports as per HPI Endocrine: Endocrine: Reports no additional endocrine complaints Hematologic/Lymphatic: Hematologic/Lymphatic: Reports no additional hemat ologic/lymphatic complaints Allergic/Immunologic: Allergic/Immunologic: Reports no additional allergic/immunologic complaints [facility] Past Medical History Medical History (Updated 06/04/20 @ 17:31 by Britany Bone MD) Alcoholism Anxiety Bipolar 1 disorder Clavicle fracture Depression H/O: HTN (hypertension) Mood disorder Social History Social History Household Members: None Alcohol intake: current Alcohol intake frequency: 3 or more drinks per day Alcohol type: beer Smoking Status: Current every day smoker Tobacco Type: Cigarette Packs Per Day: 1 Cigarettes Per Day: 20.0 Smoked in Last 30 Days: Yes Patient Interested in Nicotine Replacement: No Patient Given Instructions on How to Stop Smoking: Yes Date Education Initiated: 06/04/20 Use of substances other than those prescribed or required for medical reasons: No Have you been hit, kicked, punched, or otherwise hurt by someone within the past year? If so, by whom?: No Do you feel safe in your current relationship?: Yes Is there a partner from a previous relationship who is making you feel unsafe now?: No Are you made to feel afraid or neglected: No Advance Directives: No Do you have thoughts of harming others: None Do you have a plan to hurt others: No Plan Recently lost weight without trying: No Meds Allergies Allergy/AdvReac Type Severity Reaction Status Date / Time haloperidol [From HALDOL] Allergy Intermediate TONGUE Verified 04/07/20 14:51 SWELLING Home Medications Medication Instructions Recorded Confirmed Type Vistaril 25 mg PO NEEDED PRN 04/07/20 06/04/20 History quetiapine [Seroquel] 100 mg PO QAM 04/07/20 06/04/20 History quetiapine [Seroquel] 350 mg PO QPM 04/07/20 06/04/20 History albuterol sulfate 2 puff INHALATION NEEDED PRN 06/04/20 06/04/20 History fluoxetine 1 cap PO QAM 06/04/20 06/04/20 History mirtazapine 1 tab PO BEDTIME 06/04/20 06/04/20 History nabumetone 1 tab PO BID 06/04/20 06/04/20 History naltrexone 1 tab PO DAILY 06/04/20 06/04/20 History Physical Exam Vital Signs: Vital Signs: Last Vital Signs Temp 98.2 F 06/04/20 16:00 Pulse 72 06/04/20 16:00 Resp 18 06/04/20 16:00 BP 119/53 L 06/04/20 16:00 Pulse Ox 99 06/04/20 16:00 Body Mass Index 27.0 Const: General: cooperative, comfortable, no acute distress, well developed, alert and awake Nutritional Appearance: well nourished Orientation/co nsciousness: oriented to person, oriented to place and oriented to time L imitations: no limitations HENMT: Head: Yes normal to inspection, Yes normocephalic and Yes atraumatic Ears: hearing grossly normal bilaterally General nose exam: Normal external nose present Face and sinus: Yes normal facial exam Mouth: Normal oral and palatal mucosa present Eyes: General: appearance normal, both eyes and all related structures Visual Mabry: normal visual mabry by confrontation Alignment and Position: alignment normal Periorbital: periorbital findings normal Eyelids: Yes eyelids normal Conjunctivae: conjunctivae normal Sclerae: sclerae normal Corneas: corneas normal Pupils: Equal, round and reactive pupils present and Pupil accommodation reflex normal EOM: EOMs intact bilaterally Direct Ophthalmoscopy: normal light reflex Neck: Neck: Yes normal visual inspection, Yes full ROM and Yes no meningeal signs Thyroid: Thyroid normal Carotids: normal carotid upstroke and boundi ng pulses Chest: Chest palpation & inspection: normal inspection of the chest Resp: Effort & Inspection: normal respiratory effort Auscultation: clear to auscultation bilaterally Cardio: Rate: regular rate Rhythm: regular rhythm Heart sounds: S1 normal heart sound present and S2 normal heart sound present Peripheral pulses: Peripheral pulses 2+ throughout GI: Inspection: Yes normal to inspection Percussion: Yes normal to percussion Auscultation: normal bowel sounds Rectal Exam - Male: Yes deferred Back/Spine/Pelvis: Cervical Spine: normal cervical lordosis and cervical ROM normal Thoracic/Lumbar Spine: thoracic and lumbar spine normal to inspection Skin: General skin exam: no rashes or lesions noted Neuro: General: oriented to person, oriented to place, oriented to time, gait normal, tone normal, moves all extremities, Normal light touch and pain sensation, no meningeal signs, no focal motor deficits, CN's II-XI intact b ilaterally, normal sensation to monofilament and deep tendon reflexes 2+ bilaterally Cranial nerves: Yes CN's II-XII intact bilaterally, Yes Equal, round and reactive pupils present, Yes Bilaterally intact EOM present, Yes Nystagmus not present, Yes Normal facial strength present, Yes Midline tongue present, Yes Normal gag reflex present, Yes Symmetric palate elevation present, Yes Normal hearing present and Yes Ability to bilaterally rotate head present Cognition (Neuro): normal cognition Speech: Other speech findings present (Neuro) Gait exam (Neuro): Normal gait present Motor exam (neuro): 5/5 motor strength present throughout, Pronator motor function not present, no tremor noted, no asterixis, Motor fasciculations not present, Normal motor muscle tone present throughout and Motor abnormalities not present Sensory Exam: Bilaterally intact graphesthesia Deep tendon reflexes (DTR's): Right triceps reflex intensity grade: 2+, Left triceps reflex intensity grade: 2+, Rt Biceps (C5, C6): 2+, Left biceps reflex intensity grade: 2+, Right brachioradia lis reflex intensity grade: 2+, Left brachioradialis reflex intensity grade: 2+, Right patellar reflex intensity grade: 2+, Left patellar reflex intensity grade: 2+, Right ankle reflex intensity grade: 2+ and Left ankle reflex intensity grade: 2+ Plantar Reflex Responses: downgoing: right, left and bilateral Coordination: [id number] test normal, [id number] test normal, tandem gait normal and Romberg test negative Pupils: Normal pupillary eliot ctivity/response: bilateral Extrem: General: Yes normal to inspection, Yes normal exam except as noted and Yes no pedal edema Psych: Appearance: grossly normal Mental Status: mental status grossly normal Speech and movement: Normal speech and movement present and Clear speech present Affect: normal affect Attitude: cooperative Thought process: Normal thought process present Results Labs CBC & Chem 7: 06/04/20 08:36 06/04/20 08:36 Labs: Short CBC 06/04/20 Range/Units 08:36 WBC 8.6 (4.8-10.8) X10*3/uL Hgb 13.1 L (14.0-18.0) g/dl Hct 40.0 L (42-52) % Plt Count 326 (160-400) X10*3/uL BMP 06/04/20 08:36 Sodium 137 Potassium 4.2 Chloride 107 Carbon Dioxide 22 BUN 11 Creatinine 0.81 Calcium 8.3 L Liver Function 06/04/20 Range/Units 08:36 Total Bilirubin 0.3 (0.0-1.0) mg/dL AST 20 (5-37) U/L ALT 26 (0-40) U/L Alkaline Phosphatase 60 (39-117) U/L Albumin 3.9 (3.5-5.0) g/dL Urine 06/04/20 Range/Units 08:37 Urine Color YELLOW Urine Appearance CLEAR Urine pH 6.0 (5.0-8.0) Ur Specific [place] >= 1.030 H (1.005-1.025) Urine Protein NEG (NEG-TRACE) MG/DL Urine Glucose (UA) NEG (NEG) MG/DL Assessment and Plan (1) Ischemic stroke: Problem details: Acute left parietal infarct in multiple areas suggestive of embolic event Status: Acute Carotid Doppler, echocardiogram, brain CTA to rule out intracranial disease. Aspirin 81 mg a day. Lipid profile. Counseling on alcohol
[2020-06-04] MEDS: Enoxaparin Sodium 40 MG/0.4 ML SYRINGE SUBCUT (18:07)
[2020-06-04] MEDS: Mirtazapine 15 MG TABLET PO (21:09)
[2020-06-04] MEDS: QUEtiapine Fumarate 100 MG TABLET 350 MG PO (21:09)
[2020-06-04] MEDS: Atorvastatin Calcium 80 MG TABLET PO (21:09)
[2020-06-05] VITALS (8 sets, daily range): BP systolic 108–145; BP diastolic 54–60; PULSE 66–82; RESP 15–18; TEMP 36.2–37; O2SAT 96–98
--- NOTE | 2020-06-05 | CA_ITS ---
Acquisition Time: 2020-06-06 10:17:29 Total Exercise Time: 00:02:00 Test Indications: Pre-Op Evaluation Medications: SEE EMAR Protocol: LEXISCAN Max HR: 111 BPM 64% of Pred: 172 BPM Max BP: 102/068 mmHG Max Work Load: 1.0 METS Pharmacological stress test using Lexiscan while sitting and kicking his feet. Pt tolerated well, denies any anginal sx. EKG without arrhythmias. non-diagnostic for ischemia. Nuclear images to follow. Normotensive response to test. Test reviewed with Dr. Wong Referred By: Khadar Lazo Overread By: Jeyson Barnett
--- NOTE | 2020-06-05 | CT_ITS ---
EXAMINATION: CT ANGIOGRAM NECK CLINICAL INFORMATION: Carotid stenosis. Stroke. COMPARISON: Carotid ultrasound from 06/04/2020. Brain MRI from 06/04/2020. TECHNIQUE: Initial noncontrast electrical power station technician imaging of the neck was performed. Test bolus sequences followed by intravenous administration 80 mL of Omnipaque 350. Helical imaging was performed in the axial plane from the aortic arch to the skull base. The data was processed at the chief radiologic technologist's workstation for generation of MIP sequences. Angled MIPs and volume rendered reformatted images were also generated at an offline 3D workstation. Stenoses are assessed in accordance with NASCET criteria unless otherwise indicated. DLP: 518 mGy-cm This CT examination was performed using dose optimization techniques as appropriate, variously including the following: *Automated exposure control. *Adjustment of mA and/or kV according to patient size (this includes techniques or standardized protocols for targeted exams where dose is matched to indication/reason for exam; i.e. extremities or head). *Use of iterative reconstruction technique. FINDINGS: CT Neck: The thyroid gland and remaining cervical soft tissues are within normal limits. Moderate multilevel degenerative spondyloarthropathy of the cervical spine. Atelectasis of the right maxillary sinus. Moderate rightward nasal septal deviation with spurring. Moderate mucosal thickening of the paranasal sinuses. CT Upper Chest: Mild to moderate paraseptal emphysema. Small volume partially aerated mucous layering within the thoracic trachea. Otherwise, the visualized lung apices and upper mediastinum are within normal limits. Neck CTA: Aortic Arch: Normal contour and caliber. Two vessel branching pattern of the arch with left common carotid artery arising from the brachiocephalic trunk. Great Vessel Origins: No significant stenosis of the branch origins. Right Common Carotid Artery: Normal opacification without focal stenosis or occlusion. Cervical Right Internal Carotid Artery: Calcific atherosclerotic disease of the carotid bulb and proximal internal carotid artery causes 35% stenosis of the proximal ICA. Otherwise, normal opacification of the cervical ICA. Left Common Carotid Artery: Normal opacification without focal stenosis or occlusion. Cervical Left Internal Carotid Artery: Mixed lipid and calcific atherosclerotic disease of the carotid bulb and proximal internal carotid artery causes 80% stenosis of the ICA origin. Cervical Right Vertebral Artery: Lipid rich atheromatous disease causes moderate stenosis of the origin. Otherwise, normal opacification without focal stenosis or occlusion. Cervical Left Vertebral Artery: Dominant. Calcific atherosclerotic disease causes mild stenosis of the origin. Otherwise, normal opacification without focal stenosis or occlusion. Limited intracranial evaluation: Moderate calcific atherosclerotic disease of the intracranial internal carotid arteries without focal occlusion or flow-limiting stenosis. Normal appearance of the A1 and M1 segments of the ACAs and MCAs bilaterally. Normal anterior communicating artery. Normal appearance of the V4 segments of the vertebral arteries bilaterally. Normal appearance of the proximal PICAs. Normal appearance of the basilar artery. CT/CT angio neck IMPRESSION: 1. 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 2. Calcific atherosclerotic disease causes 35% stenosis of the origin of the right ICA. 3. Moderate atherosclerotic narrowing of the origin of the right vertebral artery. Mild atherosclerotic narrowing of the origin of the left vertebral artery. Left dominant vertebral artery.
[2020-06-05 05:41] LABS: MANUAL DIFF FLAG NO
[2020-06-05 05:47] LABS: Basophils Percent Auto 0.5 % (0-2); Eosinophils Absolute Auto 0.5 X10*3/uL (0.0-0.4); Eosinophils Percent Auto 7.3 % (0-4); Hematocrit 39.7 % (42-52); Hemoglobin 13.1 g/dl (14.0-18.0); Imm Gran Abs Auto 0.02 X10*3/uL (0.00-0.03); Imm Gran Pct Auto 0.3 % (0.0-0.4); Lymphocytes Absolute Auto 2.5 X10*3/uL (1.2-4.9); Lymphocytes Percent Auto 39.3 % (20-40); Mean Corpuscular Hemoglobin 29.8 pg (27.0-33.0); Mean Corpuscular Volume 90.4 fL (80-98); Mean Platelet Volume 9.2 fL (9.4-12.4); Monocytes Absolute Auto 0.5 X10*3/uL (0.1-1.2); Monocytes Percent Auto 7.1 % (2-11); Neutrophils Absolute Auto 2.9 X10*3/uL (2.0-8.3); Neutrophils Percent Auto 45.5 % (45-73); Platelet Count 340 X10*3/uL (160-400); Red Blood Count 4.39 X10*6/uL (4.60-5.80); Red Cell Distribution Width 12.8 % (11.0-16.0); White Blood Count 6.4 X10*3/uL (4.8-10.8)
[2020-06-05 06:05] LABS: Anion Gap 14 (12-20); Blood Urea Nitrogen 13 mg/dL (9-16); Calcium 8.3 mg/dL (8.4-10.2); Carbon Dioxide 23 mmol/L (22-29); Chloride 104 mmol/L (96-108); Cholesterol 114 mg/dL; Creatinine Clr Calc Pharmacy 103.8; Estimated Glomerular Filt Rate > 60; Glucose Random 92 mg/dL (60-115); HDL Cholesterol 43 mg/dL; LDL Cholesterol Calculated 55 mg/dl; Sodium 137 mmol/L (135-145); Triglycerides 83 mg/dL
--- NOTE | 2020-06-05 07:42 | PM.EVENT ---
Event Note Date of Service: 06/05/20 Event Note: Full consult dictated. Carotid stenosis with stroke. Plavix added. Will obtain CTA of carotids
--- NOTE | 2020-06-05 10:19 | CONS_ITS ---
DATE OF SERVICE: 06/05/2020 REASON FOR CONSULTATION: Carotid stenosis with stroke. HISTORY OF PRESENT ILLNESS: 49-year-old gentleman who originally presented to the emergency room for right-sided weakness. He stated that he noted it one evening, this was about 2 to 3 days prior to admission and he noted that his right side was weak. He attributed to the case of beer that he drank. Subsequent to that, the following day he had a similar episode. He then presented to the emergency room for evaluation. PAST MEDICAL HISTORY: Significant for hypertension, mood disorder, depression, bipolar 1 disorder, and anxiety. PAST SURGICAL HISTORY: Includes repair of his clavicle fracture. MEDICATIONS: Medication list was reviewed. ALLERGIES: HE REPORTS ALLERGY TO HALDOL. SOCIAL HISTORY: Smokes cigarettes about a pack a day and in addition, he has daily high alcohol intake. He admits to 3 to 4 drinks a day, but I do suspect it is somewhat higher than that. FAMILY HISTORY: No history of advanced coronary artery disease or peripheral vascular disease. REVIEW OF SYSTEMS: 13-point review was performed. At the current time, denies any headaches, dizziness, nausea, vomiting, diarrhea, or shortness of breath. Right arm weakness has improved. PHYSICAL EXAMINATION: VITAL SIGNS: Afebrile. Vitals, stable. HEAD AND NECK: Demonstrates no bruits. CHEST: Moving air bilaterally. CARDIAC: Positive S1 and S2. ABDOMEN: Soft. EXTREMITIES: Upper extremities have good radial and ulnar pulses. Lower extremities, warm with good capillary refill. NEUROLOGIC: At the time of my exam II through XII grossly intact. PSYCH: Once again, at the time of my exam, mood and affect appear within normal limits. IMAGING: Brain MRI, small foci of acute ischemia, left parasagittal frontoparietal region and carotid Doppler demonstrates severe left-sided stenosis 80% to 99%. IMPRESSION: Carotid stenosis with stroke. I do believe that this most likely is related to his carotid disease. He will require dual anti-platelet agents including aspirin and Plavix. I have taken the liberty of ordering a CTA to confirm this diagnosis. In addition, he will need an echo as well. Thank you for allowing us to assist in his care. We will monitor his status with you. MD GRZEGORZ Martinez/SERGIO / [phone]
[2020-06-05] MEDS: QUEtiapine Fumarate 100 MG TABLET PO (10:23)
[2020-06-05] MEDS: Naltrexone HCl 50 MG TABLET PO (10:23)
[2020-06-05] MEDS: FLUoxetine HCl 20 MG CAPSULE PO (10:23)
[2020-06-05] MEDS: 0.9 % Sodium Chloride Flush 3 ML SYRINGE IVFLUSH ×2 (10:24→16:25)
[2020-06-05] MEDS: Acetaminophen 325 MG TABLET 650 MG PO (10:30)
[2020-06-05] MEDS: Aspirin Enteric Coated 81 MG TABLET.DR PO (10:30)
[2020-06-05] MEDS: Clopidogrel Bisulfate 75 MG TABLET PO (10:31)
--- NOTE | 2020-06-05 12:07 | MHC.CM.PN ---
per physical therapy no pt needs dc plan home no servcies pt has own transport home
[2020-06-05] MEDS: iohexoL 350 MG/ML 100 ML INFUS..BTL IV (12:21)
--- NOTE | 2020-06-05 12:37 | HO.PM.IMPN ---
Subjective Subjective Date of Service: 06/05/20 Interval History: Seen in follow-up for acute stroke. He reports no new symptoms. Review of Systems no fever reports no weakness, Physical Exam Vital Signs: Vital Signs: Last Vital Signs Temp 97.5 F 06/05/20 11:11 Pulse 66 06/05/20 11:11 Resp 18 06/05/20 11:11 BP 111/58 L 06/05/20 11:11 Pulse Ox 97 06/05/20 11:11 Body Mass Index 27.0 General: AO X 3, no acute distress Resp: CTA bilateral CVS: S1,S2,RRR GI: +BS, NT, no distention Skin: No rash Neuro: motor grossly intact Psych: appropriate affect Objective Data Current Medications Generic Name Dose Route Start Last Admin Trade Name Freq PRN Reason Stop Dose Admin Acetaminophen 650 mg 06/04/20 11:10 06/05/20 10:30 Acetaminophen 325 Mg Tablet PO 650 mg Q6H PRN Administration Pain, Mild (Pain Scale 1-3) Albuterol Sulfate 2 puff 06/04/20 11:10 Albuterol Sulfate 90 Mcg 8 Gm Inhaler INHALE Q6H PRN Shortness Of Breath Or Wheezing Aspirin 81 mg 06/05/20 09:00 06/05/20 10:30 Aspirin Enteric Coated 81 Mg Tablet. PO 81 mg DAILY BENITA Administration Atorvastatin Calcium 80 mg 06/04/20 21:00 06/04/20 21:09 Atorvastatin Calcium 80 Mg Tablet PO 80 mg BEDTIME BENITA Administration Clopidogrel Bisulfate 75 mg 06/05/20 09:00 06/05/20 10:31 Clopidogrel Bisulfate 75 Mg Tablet PO 75 mg DAILY BENITA Administration Enoxaparin Sodium 40 mg 06/04/20 18:00 06/04/20 18:07 Enoxaparin Sodium 40 Mg/0.4 Ml Syringe SUBCUT 40 mg Q24H BENITA Administration Fluoxetine HCl 20 mg 06/04/20 11:15 06/05/20 10:23 Fluoxetine Hcl 20 Mg Capsule PO 20 mg DAILY BENITA Administration Mirtazapine 15 mg 06/04/20 21:00 06/04/20 21:09 Mirtazapine 15 Mg Tablet PO 15 mg BEDTIME BENITA Administration Naltrexone HCl 50 mg 06/05/20 09:00 06/05/20 10:23 Naltrexone Hcl 50 Mg Tablet PO 50 mg DAILY BENITA Administration Nicotine Polacrilex 2 mg 06/04/20 13:12 Nicotine Polacrilex 2 Mg Lozenge BUCCAL Q2H PRN Nicotine Cravings Non-Formulary Medication 1 tab 06/04/20 21:00 Nabumetone PO BID BENITA Non-Formulary Medication 25 mg 06/04/20 11:10 Vistaril PO TID PRN Anxiety Ondansetron HCl 4 mg 06/04/20 11:10 Ondansetron Hcl 4 Mg/2 Ml Vial IVPUSH Q8H PRN Nausea and Vomiting Quetiapine Fumarate 100 mg 06/04/20 11:15 06/05/20 10:23 Quetiapine Fumarate 100 Mg Tablet PO 100 mg DAILY BENITA Administration Quetiapine Fumarate 350 mg 06/04/20 21:00 06/04/20 21:09 Quetiapine Fumarate 100 Mg Tablet PO 350 mg BEDTIME BENITA Administration Sodium Chloride 3 ml 06/04/20 16:00 06/05/20 10:24 0.9 % Sodium Chloride Flush 3 Ml Syringe IVFLUSH 3 ml QSHIFT BENITA Administration Labs CBC & Chem 7: 06/05/20 04:56 06/05/20 04:56 Assessment and Plan (1) Brain TIA: Status: Acute Assessment and Plan: 49-year-old man admitted with possible TIA. Acute left parietal infarct in multiple areas suggestive of embolic event-w/ right sided numnes--likely of carotid source -medical thereapy with ASA, Plavix, lipitor, and BP control Cartid Stenosis--liekly source of stroke, angiogram today. ASA, Plavix as above. Dr. Parra will do CEA in 2 weeks Left rib pain. xrays shows Acute left anterior 10th rib fracture. Old left-sided rib fractures similar to 2018 and chest x-ray--Pain control Alcohol abuse. No signs of withdrawal at this time will place on CIWA scale if patient develops withdrawal symptoms consider starting phenobarbital. Advised on cessation Tobacco use. Discussed smoking cessation. Nicotine replacement therapy. Depression/anxiety. Continue home medications. DVT prophylaxis with Lovenox. Case discussed with Dr. Reynolds Full code
--- NOTE | 2020-06-05 16:06 | NM_ITS ---
Myocardial perfusion study Indication: Preoperative cardiovascular stratification Technique: The patient was brought in for a Lexiscan perfusion study on 06/06/2020. Patient performed low-level exercise and was injected 0.4 mg of Lexiscan intravenously. Within a minute of injection, 30 mCi of sestamibi was given intravenously. Images were obtained using the SPECT gamma camera interlaced with the gating device. Images were obtained in supine position. Resting perfusion study was performed on 06/07/2020. Patient was administered 30 mCi of sestamibi intravenously at rest. Images were then obtained in supine position. Images obtained with and without CT attenuation. Total DLP 119 mGy-cm. Images were processed with the software and compared side to side in short axis, horizontal long axis and vertical long axis views. Findings: The stress perfusion study showed non attenuated images show minimally reduced uptake in the septum of the LV myocardium at the base. Remainder of the LV myocardium is normally perfused. Attenuation corrected images are suboptimal due to subdiaphragmatic uptake. The gated study shows normal LV systolic function with calculated LVEF of 62%. LV cavity is normal in size. The gated study shows normal systolic wall thickening and contraction of segments. Resting study shows nontender images show no change in perfusion pattern compared to stress perfusion. Gating at rest reveals normal systolic wall motion with ejection fraction at 63%. The findings are consistent with no clear reversible defect on non attenuated images. Most likely normal myocardial perfusion. NM/NM john perf SPECT rest & str Impression: 1. Myocardial perfusion imaging study shows likely normal myocardial perfusion 2. Gated LVEF is 63% 3. Transient ischemic dilatation not present EKG is nondiagnostic for ischemia
[2020-06-05] MEDS: Enoxaparin Sodium 40 MG/0.4 ML SYRINGE SUBCUT (17:56)
--- NOTE | 2020-06-05 18:59 | PM.CNCAR ---
History of Present Illness History of Present Illness Date of Service: 06/05/20 Chief complaint: TIA, preop clearance Narrative: 49-year-old gentleman who is admitted with CVA. He has been found to have severe left carotid disease. He said he had right sided facial numbness and arm weakness which has improved. We have been asked to assess periop cardiovascular risk. He is not active. 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 He has no CP. He smokes. He does not do any drugs. Review of Systems Neurologic: Reports as per [facility] Past Medical History Medical History (Updated 06/05/20 @ 19:04 by Khadar Lazo MD) Alcoholism Anxiety Bipolar 1 disorder Clavicle fracture Depression H/O: HTN (hypertension) Mood disorder Social History Social History Household Members: None Alcohol intake: current Alcohol intake frequency: 3 or more drinks per day Alcohol type: beer Smoking Status: Current every day smoker Tobacco Type: Cigarette Packs Per Day: 1 Cigarettes Per Day: 20.0 Smoked in Last 30 Days: Yes Patient Interested in Nicotine Replacement: No Patient Given Instructions on How to Stop Smoking: Yes Date Education Initiated: 06/04/20 Use of substances other than those prescribed or required for medical reasons: No Currently Displaying Signs/Symptoms of Drug Intoxication Withdrawal: No Have you been hit, kicked, punched, or otherwise hurt by someone within the past year? If so, by whom?: No Do you feel safe in your current relationship?: Yes Is there a partner from a previous relationship who is making you feel unsafe now?: No Are you made to feel afraid or neglected: No Advance Directives: No Do you have thoughts of harming others: None Do you have a plan to hurt others: No Plan Recently lost weight without trying: No service: No Meds Allergies Allergy/AdvReac Type Severity Reaction Status Date / Time haloperidol [From HALDOL] Allergy Intermediate TONGUE Verified 04/07/20 14:51 SWELLING Home Medications Medication Instructions Recorded Confirmed Type Vistaril 25 mg PO NEEDED PRN 04/07/20 06/04/20 History quetiapine [Seroquel] 100 mg PO QAM 04/07/20 06/04/20 History quetiapine [Seroquel] 350 mg PO QPM 04/07/20 06/04/20 History albuterol sulfate 2 puff INHALATION NEEDED PRN 06/04/20 06/04/20 History fluoxetine 1 cap PO QAM 06/04/20 06/04/20 History mirtazapine 1 tab PO BEDTIME 06/04/20 06/04/20 History nabumetone 1 tab PO BID 06/04/20 06/04/20 History naltrexone 1 tab PO DAILY 06/04/20 06/04/20 History Physical Exam Vital Signs: Vital Signs: Last Vital Signs Temp 98.6 F 06/05/20 18:50 Pulse 68 06/05/20 18:50 Resp 18 06/05/20 18:50 BP 112/55 L 06/05/20 18:50 Pulse Ox 97 06/05/20 18:50 Body Mass Index 27.0 GENERAL APPEARANCE: in no acute distress, well developed, well nourished. HEENT: unremarkable. HEAD: normocephalic, atraumatic. NECK/THYROID: left carotid bruit, no jugular venous distention. SKIN: no suspicious lesions, warm and dry. HEART: no murmurs, regular rate and rhythm, S1, S2 normal. LUNGS: clear to auscultation bilaterally. ABDOMEN: normal, bowel sounds present, soft, nontender, nondistended. EXTREMITIES: no clubbing, cyanosis, or edema. PERIPHERAL PULSES: equal. NEUROLOGIC: nonfocal, alert and oriented. PSYCH: mood/affect full range. Results Labs and Meds Result diagrams: 06/05/20 04:56 06/05/20 04:56 Lab results: Laboratory Results - last 24 hr 06/05/20 06/05/20 04:56 04:56 WBC 6.4 RBC 4.39 L Hgb 13.1 L Hct 39.7 L MCV 90.4 MCH 29.8 MCHC 33.0 RDW 12.8 Plt Count 340 MPV 9.2 L Immature Gran % (Auto) 0.3 Neut % (Auto) 45.5 Lymph % (Auto) 39.3 [place] % (Auto) 7.1 Eos % (Auto) 7.3 H Baso % (Auto) 0.5 Lymph # (Auto) 2.5 [place] # (Auto) 0.5 Eos # (Auto) 0.5 H Baso # (Auto) 0.0 Abs Immat Gran (auto) 0.02 Absolute Neuts (auto) 2.9 Absolute Nucleated RBC 0.000 Nucleated RBC % (auto) 0.0 Sodium 137 Potassium 4.0 Chloride 104 Carbon Dioxide 23 Anion Gap 14 BUN 13 Creatinine 0.87 Estim Creat Clear Calc 103.8 Estimated GFR > 60 Random Glucose 92 Calcium 8.3 L Triglycerides 83 Cholesterol 114 LDL Cholesterol, Calc 55 HDL Cholesterol 43 Imaging Radiologist's impression: Impressions Neck CTA 06/05/20 00:00 IMPRESSION: 1. 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 2. Calcific atherosclerotic disease causes 35% stenosis of the origin of the right ICA. 3. Moderate atherosclerotic narrowing of the origin of the right vertebral artery. Mild atherosclerotic narrowing of the origin of the left vertebral artery. Left dominant vertebral artery. Assessment and Plan (1) Ischemic stroke: Problem details: Acute left parietal infarct in multiple areas suggestive of embolic event Status: Acute (2) Carotid stenosis: Status: Acute (3) Preoperative cardiovascular examination: Status: Acute 49-year-old gentleman who is presenting with CVA. He has been found to have severe carotid stenosis. He is not physically active at baseline. Given severe carotid disease and risk factors for coronary atherosclerosis, I think he needs stress testing to risk stratify him. We will do a Lexiscan tomorrow. If his stress test showed high-risk features then we will pursue further testing. Continue the aspirin and Plavix. Continue atorvastatin. Blood pressure control depending on Neurology recommendations. Smoking cessation. Thank you for allowing me to participate in the care of your patient. Please feel free to contact me if you have any questions.
[2020-06-05] MEDS: Mirtazapine 15 MG TABLET PO (20:28)
[2020-06-05] MEDS: Atorvastatin Calcium 80 MG TABLET PO (20:28)
[2020-06-05] MEDS: QUEtiapine Fumarate 100 MG TABLET 350 MG PO (20:29)
[2020-06-06] VITALS (7 sets, daily range): BP systolic 112–131; BP diastolic 55–74; PULSE 61–76; RESP 18–19; TEMP 36.4–36.8; O2SAT 97–100
[2020-06-06] MEDS: Aspirin Enteric Coated 81 MG TABLET.DR PO (07:45)
[2020-06-06] MEDS: Naltrexone HCl 50 MG TABLET PO (07:45)
[2020-06-06] MEDS: QUEtiapine Fumarate 100 MG TABLET PO (07:45)
[2020-06-06] MEDS: Clopidogrel Bisulfate 75 MG TABLET PO (07:45)
[2020-06-06] MEDS: 0.9 % Sodium Chloride Flush 3 ML SYRINGE IVFLUSH ×3 (07:46→20:21)
[2020-06-06] MEDS: FLUoxetine HCl 20 MG CAPSULE PO (07:46)
--- NOTE | 2020-06-06 11:37 | HO.PM.IMPN ---
Subjective Subjective Date of Service: 06/06/20 Interval History: Seen in follow-up for acute stroke. He reports no new symptoms such as numbness. Awaiting stress today Review of Systems no fever reports no weakness, Physical Exam Vital Signs: Vital Signs: Last Vital Signs Temp 98.3 F 06/06/20 08:00 Pulse 72 06/06/20 08:00 Resp 18 06/06/20 08:00 BP 117/74 06/06/20 08:00 Pulse Ox 100 06/06/20 08:00 General: AO X 3, no acute distress Resp: CTA bilateral CVS: S1,S2,RRR GI: +BS, NT, no distention Skin: No rash Neuro: motor grossly intact Psych: appropriate affect Body Mass Index 27.0 Objective Data Current Medications Generic Name Dose Route Start Last Admin Trade Name Freq PRN Reason Stop Dose Admin Acetaminophen 650 mg 06/04/20 11:10 06/05/20 10:30 Acetaminophen 325 Mg Tablet PO 650 mg Q6H PRN Administration Pain, Mild (Pain Scale 1-3) Albuterol Sulfate 2 puff 06/04/20 11:10 Albuterol Sulfate 90 Mcg 8 Gm Inhaler INHALE Q6H PRN Shortness Of Breath Or Wheezing Aspirin 81 mg 06/05/20 09:00 06/06/20 07:45 Aspirin Enteric Coated 81 Mg Tablet. PO 81 mg DAILY BENITA Administration Atorvastatin Calcium 80 mg 06/04/20 21:00 06/05/20 20:28 Atorvastatin Calcium 80 Mg Tablet PO 80 mg BEDTIME BENITA Administration Clopidogrel Bisulfate 75 mg 06/05/20 09:00 06/06/20 07:45 Clopidogrel Bisulfate 75 Mg Tablet PO 75 mg DAILY BENITA Administration Enoxaparin Sodium 40 mg 06/04/20 18:00 06/05/20 17:56 Enoxaparin Sodium 40 Mg/0.4 Ml Syringe SUBCUT 40 mg Q24H BENITA Administration Fluoxetine HCl 20 mg 06/04/20 11:15 06/06/20 07:46 Fluoxetine Hcl 20 Mg Capsule PO 20 mg DAILY BENITA Administration Mirtazapine 15 mg 06/04/20 21:00 06/05/20 20:28 Mirtazapine 15 Mg Tablet PO 15 mg BEDTIME BENITA Administration Naltrexone HCl 50 mg 06/05/20 09:00 06/06/20 07:45 Naltrexone Hcl 50 Mg Tablet PO 50 mg DAILY BENITA Administration Nicotine Polacrilex 2 mg 06/04/20 13:12 Nicotine Polacrilex 2 Mg Lozenge BUCCAL Q2H PRN Nicotine Cravings Non-Formulary Medication 1 tab 06/04/20 21:00 Nabumetone PO BID BENITA Non-Formulary Medication 25 mg 06/04/20 11:10 Vistaril PO TID PRN Anxiety Ondansetron HCl 4 mg 06/04/20 11:10 Ondansetron Hcl 4 Mg/2 Ml Vial IVPUSH Q8H PRN Nausea and Vomiting Quetiapine Fumarate 100 mg 06/04/20 11:15 06/06/20 07:45 Quetiapine Fumarate 100 Mg Tablet PO 100 mg DAILY BENITA Administration Quetiapine Fumarate 350 mg 06/04/20 21:00 06/05/20 20:29 Quetiapine Fumarate 100 Mg Tablet PO 350 mg BEDTIME BENITA Administration Sodium Chloride 3 ml 06/04/20 16:00 06/06/20 07:46 0.9 % Sodium Chloride Flush 3 Ml Syringe IVFLUSH 3 ml QSHIFT BENITA Administration Labs CBC & Chem 7: 06/05/20 04:56 06/05/20 04:56 Assessment and Plan (1) Ischemic stroke: Problem details: Acute left parietal infarct in multiple areas suggestive of embolic event Status: Acute (2) Carotid stenosis: Status: Acute (3) Preoperative cardiovascular examination: Status: Acute (4) Brain TIA: Status: Acute Assessment and Plan: 49-year-old man admitted with possible TIA. Acute left parietal infarct in multiple areas suggestive of embolic event-w/ right sided numbnes-likely of carotid source -medical thereapy with ASA, Plavix, lipitor, and BP control Cartid Stenosis--liekly source of stroke, angiogram today. ASA, Plavix as above. Dr. Parra will do CEA in 2 weeks. [facility] will do stress as part of preop Left rib pain. xrays shows Acute left anterior 10th rib fracture. Old left-sided rib fractures similar to 2018 and chest x-ray--Pain control Alcohol abuse. No signs of withdrawal at this time will place on CIWA scale if patient develops withdrawal symptoms consider starting phenobarbital. Advised on cessation. CARE consult Tobacco use. Discussed smoking cessation. Nicotine replacement therapy. Depression/anxiety. Continue home medications. DVT prophylaxis with Lovenox.
--- NOTE | 2020-06-06 12:28 | MHC.CM.PN ---
DP per MD rounds is to discharge today after stress test. No services family transport.
--- NOTE | 2020-06-06 12:54 | HO.VASCPN ---
Subjective Subjective Date of Service: 06/06/20 Patient reports: no new complaints and feels better Interval history: Patient seen and examined. No events overnight. This is a follow-up visit for left-sided carotid stenosis with stroke. This was confirmed with CT a which was performed yesterday. In addition he is undergoing cardiac risk stratification. Physical Exam Vital Signs: Vital Signs: Last Vital Signs Temp 97.6 F 06/06/20 11:58 Pulse 61 06/06/20 11:58 Resp 18 06/06/20 11:58 BP 131/67 06/06/20 11:58 Pulse Ox 99 06/06/20 11:58 Body Mass Index 27.0 Const: General: cooperative, healthy appearing and no acute distress Orientation/consciousness: oriented to person, oriented to place and oriented to time HENMT: Head: Yes normal to inspection Neck: Carotids: no bruits Chest: Chest palpation & inspection: normal inspection of the chest Resp: Effort & Inspection: normal respiratory effort and able to speak in complete sentences Auscultation: clear to auscultation bilaterally Cardio: Rate: regular rate Heart sounds: S1 normal heart sound present and S2 normal heart sound present GI: Inspection: Yes normal to inspection Skin: General skin exam: no rashes or lesions noted Wounds: no wounds Neuro: General: oriented to person, oriented to place, oriented to time and CN's II-XI intact bilaterally Extrem: General: Yes normal to inspection, Yes full ROM and Yes no clubbing, cyanosis or edema Psych: Appearance: grossly normal and well kempt Speech and movement: Normal speech and movement present Affect: normal affect Progress Note: A&P Assessment and plan (1) Stroke due to stenosis of left carotid artery: Status: Acute Assessment and Plan: CT a confirms high-grade left carotid stenosis of 80%. I independently reviewed the written report and images of this study. Patient will require left carotid endarterectomy. Risks benefits complications were discussed in detail. Patient will be maintained on dual anti-platelet agent of aspirin and Plavix up to surgery. Will await risk stratification from Cardiology. Thank you for allowing us to assist in his care. Fall Risk Details Current Medications: Current Medications Generic Name Dose Route Start Last Admin Trade Name Freq PRN Reason Stop Dose Admin Acetaminophen 650 mg 06/04/20 11:10 06/05/20 10:30 Acetaminophen 325 Mg Tablet PO 650 mg Q6H PRN Administration Pain, Mild (Pain Scale 1-3) Albuterol Sulfate 2 puff 06/04/20 11:10 Albuterol Sulfate 90 Mcg 8 Gm Inhaler INHALE Q6H PRN Shortness Of Breath Or Wheezing Aspirin 81 mg 06/05/20 09:00 06/06/20 07:45 Aspirin Enteric Coated 81 Mg Tablet.Dr PO 81 mg DAILY BENITA Administration Atorvastatin Calcium 80 mg 06/04/20 21:00 06/05/20 20:28 Atorvastatin Calcium 80 Mg Tablet PO 80 mg BEDTIME BENITA Administration Clopidogrel Bisulfate 75 mg 06/05/20 09:00 06/06/20 07:45 Clopidogrel Bisulfate 75 Mg Tablet PO 75 mg DAILY BENITA Administration Enoxaparin Sodium 40 mg 06/04/20 18:00 06/05/20 17:56 Enoxaparin Sodium 40 Mg/0.4 Ml Syringe SUBCUT 40 mg Q24H BENITA Administration Fluoxetine HCl 20 mg 06/04/20 11:15 06/06/20 07:46 Fluoxetine Hcl 20 Mg Capsule PO 20 mg DAILY BENITA Administration Mirtazapine 15 mg 06/04/20 21:00 06/05/20 20:28 Mirtazapine 15 Mg Tablet PO 15 mg BEDTIME BENITA Administration Naltrexone HCl 50 mg 06/05/20 09:00 06/06/20 07:45 Naltrexone Hcl 50 Mg Tablet PO 50 mg DAILY BENITA Administration Nicotine Polacrilex 2 mg 06/04/20 13:12 Nicotine Polacrilex 2 Mg Lozenge BUCCAL Q2H PRN Nicotine Cravings Non-Formulary Medication 1 tab 06/04/20 21:00 Nabumetone PO BID BENITA Non-Formulary Medication 25 mg 06/04/20 11:10 Vistaril PO TID PRN Anxiety Ondansetron HCl 4 mg 06/04/20 11:10 Ondansetron Hcl 4 Mg/2 Ml Vial IVPUSH Q8H PRN Nausea and Vomiting Quetiapine Fumarate 100 mg 06/04/20 11:15 06/06/20 07:45 Quetiapine Fumarate 100 Mg Tablet PO 100 mg DAILY BENITA Administration Quetiapine Fumarate 350 mg 06/04/20 21:00 06/05/20 20:29 Quetiapine Fumarate 100 Mg Tablet PO 350 mg BEDTIME BENITA Administration Sodium Chloride 3 ml 06/04/20 16:00 06/06/20 07:46 0.9 % Sodium Chloride Flush 3 Ml Syringe IVFLUSH 3 ml QSHIFT BENITA Administration Time Spent With Patient Time: Total time spent is greater than 50% in coordination of care (as documented) at patient's floor/unit and/or counseling patient: Time with patient: 25 - 35 minutes
--- NOTE | 2020-06-06 13:56 | MHC.RECOVSUP ---
Recovery Support note: Patient is a 49 year old Cymro speaking male who presented to [facility] ED due to right sided weakness and was medically admitted. 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 Patient was wondering how the blockage could be related to his alcohol use. Explained connection between the two and patient acknowledged that what happened was very serious and scary and he does not want it to happen again. Patient understands that not consuming alcohol will be important for his health going forward and he feels confident that he will be able to maintain sobriety. Discussed recovery supports with patient. Patient reports he is on Naltrexone and finds it helpful in avoiding alcohol and he plans to continue with this medication. Patient reports he has friends and family who he can reach out to for support if needed. Patient reports he has tried AA in the past and has found it helpful. Provided patient with information on AA groups and encouraged him to get connected for additional support. Discussed IOP with patient. Patient was familiar however he had not attended a program before. Provided patient with information on IOP and encouraged that he consider attending one to support his early recovery. Provided patient with this singer songwriter's business card in the event that he has any questions or if he is interested in additional supports. Discussed case with patient's RN.
[2020-06-06] MEDS: Enoxaparin Sodium 40 MG/0.4 ML SYRINGE SUBCUT (17:36)
[2020-06-06] MEDS: Mirtazapine 15 MG TABLET PO (20:17)
[2020-06-06] MEDS: QUEtiapine Fumarate 100 MG TABLET 350 MG PO (20:17)
[2020-06-06] MEDS: Atorvastatin Calcium 80 MG TABLET PO (20:17)
[2020-06-07 03:24] VITALS: BP 118/62; PULSE 65; RESP 18; O2SAT 98
[2020-06-07] MEDS: 0.9 % Sodium Chloride Flush 3 ML SYRINGE IVFLUSH (07:45)
[2020-06-07] MEDS: Naltrexone HCl 50 MG TABLET PO (07:46)
[2020-06-07] MEDS: FLUoxetine HCl 20 MG CAPSULE PO (07:46)
[2020-06-07] MEDS: Clopidogrel Bisulfate 75 MG TABLET PO (07:46)
[2020-06-07] MEDS: Aspirin Enteric Coated 81 MG TABLET.DR PO (07:46)
[2020-06-07] MEDS: QUEtiapine Fumarate 100 MG TABLET PO (07:46)
[2020-06-07 08:00] VITALS: BP 138/63; PULSE 65; RESP 20; TEMP 37; O2SAT 97
--- NOTE | 2020-06-07 09:55 | PM.DS ---
DS: Providers Provider Date of Service: 07/01/20 Date of admission: 06/04/20 12:06 Primary care physician: Unknown Physician Consults: 06/04/20 11:10 Consult to Neurology Routine Consulting Provider: [facility] Reason for consultation: tia Has provider been notified: No 06/04/20 17:58 Consult to Vascular Surgery Routine Consulting Provider: Dar Parra Reason for consultation: stroke, left carotid stenosis Has provider been notified: No 06/05/20 14:26 Consult to Cardiology Routine Consulting Provider: [facility] [place] Cardiovascular Services Reason for consultation: preop risk strat left carotid stenosis Has provider been notified: No 06/06/20 11:36 Consult to Care Team Routine Comment: Reason for consultation: Chronic alcoholism DS: Diagnosis Discharge Diagnosis (1) Stroke due to stenosis of left carotid artery: Status: Acute DS: Medications Discharge Medications Home Medications: Home Medications Medication Instructions Recorded Confirmed quetiapine [Seroquel] 100 mg PO QAM 04/07/20 06/04/20 quetiapine [Seroquel] 350 mg PO QPM 04/07/20 06/04/20 albuterol sulfate 2 puff INHALATION NEEDED PRN 06/04/20 06/04/20 fluoxetine 1 cap PO QAM 06/04/20 06/04/20 mirtazapine 1 tab PO BEDTIME 06/04/20 06/04/20 nabumetone 1 tab PO BID 06/04/20 06/04/20 naltrexone 1 tab PO DAILY 06/04/20 06/04/20 hydroxyzine pamoate [Vistaril] 25 mg PO NEEDED PRN 06/07/20 06/07/20 DS: Summary Hospital Course Hospital Course: HPI: 49-year-old man presented to the ER with complaints of right-sided weakness. He reports yesterday he started to feel electricity to the right side of his face and then he felt a burning to his right arm and right leg and then his right arm felt weak. He reported that this happened for approximately 15 minutes but took most of the day to feel normal again. He reported a headache with no visual changes, chest pain, shortness of breath, loss of consciousness. He did take some ibuprofen and he also drank about 12-[address] showed questionable abnormality involving the cortical marrero matter of the left precentral gyrus, MRI is pending. Labs are within acceptable limits. His blood pressure is on the softer side which seems to be chronic, he has no dizziness. He received a full dose of aspirin in the ER. He will be admitted for further management and treatment of possible TIA Hospital course: Acute left parietal infarct in multiple areas suggestive of embolic event-w/ right sided numbnes-likely of carotid source. He was seen by Dr. Mendoza of Neurology with recommendation to optimize medical therapy with ASA, Lipitor, Plavix and adequate blood pressure control. Further work up with carotid US and CTA of neck revealed significant carotid stenosis as likely source of stroke. Dr. Parra will address this in 2 weeks with surgery Cartid Stenosis--liekly source of stroke--see above. Cardiology has seen him and has done stress test to clear him Left rib pain. xrays shows Acute left anterior 10th rib fracture. Old left-sided rib fractures similar to 2018 and chest x-ray--Pain control Alcohol abuse. No signs of withdrawal at this time will place on CIWA scale if patient develops withdrawal symptoms consider starting phenobarbital. Advised on cessation. CARE was consulted and offered resources, I aslso advised the him to stop driking alcohol Tobacco use. Discussed smoking cessation. Nicotine replacement therapy. Total cessation requested Depression/anxiety. Continue home medications. Time Spent with Patient Time attestation: Total time spent providing and/or coordinating discharge services: Discharge coordination time: Greater than 30 minutes Physical Exam Vital Signs: Vital Signs: Last Vital Signs Temp 98.6 F 06/07/20 08:00 Pulse 65 06/07/20 08:00 Resp 20 06/07/20 08:00 BP 138/63 06/07/20 08:00 Pulse Ox 97 06/07/20 08:00 Body Mass Index 27.0 General: AO X 3, no acute distress Resp: CTA bilateral CVS: S1,S2,RRR GI: +BS, NT, no distention Skin: No rash Neuro: motor grossly intact Psych: appropriate affect DS: Data Data Completed and Pending Labs on day of discharge: 06/04/20 07:18 CT head/brain wo con Stat 06/04/20 08:36 Complete Blood Count Auto Diff Stat Comprehensive Met. Panel Stat Drug Screen Urine Stat Ethanol Stat 06/04/20 08:37 UA CC w/rflx Micro + Cult Stat 06/04/20 09:15 0.9 % Sodium Chloride [Ns] 1,000 ml IV 999 mls/hr 06/04/20 09:17 MR head/brain wo con Stat 06/04/20 09:40 Aspirin 324 mg PO ONCE ONE 06/04/20 11:04 Transfer Order Routine 06/04/20 11:08 LORazepam [Ativan] 2 mg IVPUSH ONCE ONE 06/04/20 11:20 XR ribs LT min 3V w CXR1V Stat 06/04/20 13:12 CA echo transthoracic complete Routine Lidocaine 4 % Patch [Salonpas 4 % Patch] 1 patch TRANSDERMA ONCE ONE 06/04/20 13:12 US carotid duplex BI Routine 06/04/20 13:20 COVID-19 ID NOW ([place]) Stat 06/04/20 Lunch Low Sodium Diet 06/04/20 16:07 RT Smoking Initial Cessation ONCE 06/05/20 CA lexiscan stress w john Routine CT angio neck Routine 06/05/20 04:56 Basic Metabolic Panel DAILY@0600 Complete Blood Count Auto Diff DAILY@0600 Lipid Panel Routine 06/05/20 12:21 iohexoL 350 MG/ML [Omnipaque 350 MG/ML] 100 ml IV ONCE ONE 06/06/20 10:26 Aminophylline 250 mg .ROUTE .STK-MED ONE Regadenoson [Lexiscan] 0.4 mg IV .STK-MED ONE Laboratory Last Values WBC 6.4 X10*3/uL (4.8-10.8) 06/05/20 04:56 RBC 4.39 X10*6/uL (4.60-5.80) L 06/05/20 04:56 Hgb 13.1 g/dl (14.0-18.0) L 06/05/20 04:56 Hct 39.7 % (42-52) L 06/05/20 04:56 MCV 90.4 fL (80-98) 06/05/20 04:56 MCH 29.8 pg (27.0-33.0) 06/05/20 04:56 MCHC 33.0 g/dl (31.0-36.0) 06/05/20 04:56 RDW 12.8 % (11.0-16.0) 06/05/20 04:56 Plt Count 340 X10*3/uL (160-400) 06/05/20 04:56 MPV 9.2 fL (9.4-12.4) L 06/05/20 04:56 Immature Gran % (Auto) 0.3 % (0.0-0.4) 06/05/20 04:56 Neut % (Auto) 45.5 % (45-73) 06/05/20 04:56 Lymph % (Auto) 39.3 % (20-40) 06/05/20 04:56 Kaufman % (Auto) 7.1 % (2-11) 06/05/20 04:56 Eos % (Auto) 7.3 % (0-4) H 06/05/20 04:56 Baso % (Auto) 0.5 % (0-2) 06/05/20 04:56 Lymph # (Auto) 2.5 X10*3/uL (1.2-4.9) 06/05/20 04:56 [place]aufman # (Auto) 0.5 X10*3/uL (0.1-1.2) 06/05/20 04:56 Eos # (Auto) 0.5 X10*3/uL (0.0-0.4) H 06/05/20 04:56 Baso # (Auto) 0.0 X10*3/uL (0.0-0.2) 06/05/20 04:56 Abs Immat Gran (auto) 0.02 X10*3/uL (0.00-0.03) 06/05/20 04:56 Absolute Neuts (auto) 2.9 X10*3/uL (2.0-8.3) 06/05/20 04:56 Absolute Nucleated RBC 0.000 X10*3/uL (0.0-0.012) 06/05/20 04:56 Nucleated RBC % (auto) 0.0 /100WBC (0.0-0.2) 06/05/20 04:56 Sodium 137 mmol/L (135-145) 06/05/20 04:56 Potassium 4.0 mmol/l (3.3-5.1) 06/05/20 04:56 Chloride 104 mmol/L (96-108) 06/05/20 04:56 Carbon Dioxide 23 mmol/L (22-29) 06/05/20 04:56 Anion Gap 14 (12-20) 06/05/20 04:56 BUN 13 mg/dL (9-16) 06/05/20 04:56 Creatinine 0.87 mg/dL (0.5-1.4) 06/05/20 04:56 Estim Creat Clear Calc 103.8 06/05/20 04:56 Estimated GFR > 60 06/05/20 04:56 Random Glucose 92 mg/dL (60-115) 06/05/20 04:56 Calcium 8.3 mg/dL (8.4-10.2) L 06/05/20 04:56 Total Bilirubin 0.3 mg/dL (0.0-1.0) 06/04/20 08:36 AST 20 U/L (5-37) 06/04/20 08:36 ALT 26 U/L (0-40) 06/04/20 08:36 Alkaline Phosphatase 60 U/L (39-117) 06/04/20 08:36 Total Protein 6.8 g/dL (6.5-8.0) 06/04/20 08:36 Albumin 3.9 g/dL (3.5-5.0) 06/04/20 08:36 Triglycerides 83 mg/dL 06/05/20 04:56 Cholesterol 114 mg/dL 06/05/20 04:56 LDL Cholesterol, Calc 55 mg/dl 06/05/20 04:56 HDL Cholesterol 43 mg/dL 06/05/20 04:56 Urine Color YELLOW 06/04/20 08:37 Urine Appearance CLEAR 06/04/20 08:37 Urine pH 6.0 (5.0-8.0) 06/04/20 08:37 Ur Specific [place] >= 1.030 (1.005-1.025) H 06/04/20 08:37 Urine Protein NEG MG/DL (NEG-TRACE) 06/04/20 08:37 Urine Glucose (UA) NEG MG/DL (NEG) 06/04/20 08:37 Urine Ketones 5 MG/DL (NEG) 06/04/20 08:37 Urine Blood NEG (NEG) 06/04/20 08:37 Urine Nitrite NEG (NEG) 06/04/20 08:37 Ur Leukocyte Esterase NEG (NEG) 06/04/20 08:37 Urine Opiates Screen Not Detected (Not Detect) 06/04/20 08:36 Ur Barbiturates Screen Not Detected (Not Detect) 06/04/20 08:36 Ur Phencyclidine Scrn Not Detected (Not Detect) 06/04/20 08:36 Ur Amphetamines Screen Not Detected (Not Detect) 06/04/20 08:36 U Benzodiazepines Scrn Not Detected (Not Detect) 06/04/20 08:36 Urine Cocaine Screen Not Detected (Not Detect) 06/04/20 08:36 U Marijuana (THC) Screen Not Detected (Not Detect) 06/04/20 08:36 Ethyl Alcohol < 10 mg/dL 06/04/20 08:36 COVID-19 (DILSHAD) Negative (Negative) 06/04/20 13:20 COVID-19 Clin Com See Note 06/04/20 13:20 Discharge Plan Discharge Anticipated Discharge Date/Time: 06/07/20 09:43 Patient Disposition: Home, Self-Care Referrals: Physician,Unknown [Primary Care Provider] - Discharge Medications: New atorvastatin 80 mg Tablet 80 mg PO BEDTIME Qty: 30 RF: 0 clopidogrel 75 mg Tablet 75 mg PO DAILY Qty: 30 RF: 0 aspirin 81 mg Tablet,Delayed Release (Dr/Ec) 81 mg PO DAILY Qty: 30 RF: 0 nicotine 21 mg/24 hr patch 24 hour 1 patch transdermal DAILY Qty: 28 RF: 0 Continued quetiapine [Seroquel] 300 mg Tablet 300 mg PO BEDTIME RF: 0 naltrexone 50 mg tablet 50 mg PO DAILY RF: 0 mirtazapine 15 mg tablet 15 mg PO BEDTIME RF: 0 albuterol sulfate 90 mcg/actuation HFA aerosol inhaler 2 puff inhalation NEEDED PRN (Reason: Shortness Of Breath Or Wheezing) RF: 0 fluoxetine 20 mg capsule 20 mg PO QAM RF: 0 nabumetone 500 mg tablet 500 mg PO BID RF: 0 hydroxyzine pamoate [Vistaril] 25 mg Capsule 25 mg PO NEEDED PRN (Reason: Anxiety) RF: 0 No Action oxycodone-acetaminophen [Percocet] 5-325 mg tablet 1 tab PO TID PRN (Reason: pain) Qty: 10 RF: 0 clonidine HCl 0.1 mg tablet 0.1 mg PO DAILY RF: 0 quetiapine 50 mg tablet 50 mg PO BEDTIME RF: 0 quetiapine 50 mg tablet 100 mg PO QAM RF: 0 oxycodone-acetaminophen [Percocet] 5-325 mg tablet 1 tab PO Q4-6H PRN (Reason: pain) Qty: 10 RF: 0 Discharge Orders: Discharge Order (Routine); Ordered 06/07/20 Ordered By: Benny Reynolds Diet: advance to usual diet Activity on Discharge: As tolerated Visit Report Forms: Patient Portal Discharge page Care Plan Goals: Prevent new stroke, and follow up on carotid stenosis and fixaton Health Concerns: Carotid stenosis that led to stroke Plan of Treatment: take all your medication as ordered and follow up with your Doctor kev week, call for appointment Discharge Date/Time: 06/07/20 14:31
--- NOTE | 2020-06-07 11:15 | MHC.CM.PN ---
per rounds dc expected to be today
--- NOTE | 2020-06-07 11:29 | MHC.CM.PN ---
pt dcd today pt has been seen by care team prior to dc
--- NOTE | 2020-06-07 13:02 | HO.VASCPN ---
Subjective Subjective Date of Service: 06/07/20 Patient reports: no new complaints and feels better Interval history: Patient with left carotid stenosis with stroke. He is doing relatively well. It appears all issues related to the stroke have resolved. In general feels better. Has been maintained on 2 anti-platelet agents. Now for follow-up. Of note he has undergone ECHO and stress testing. Physical Exam Vital Signs: Vital Signs: Last Vital Signs Temp 98.6 F 06/07/20 08:00 Pulse 65 06/07/20 08:00 Resp 20 06/07/20 08:00 BP 138/63 06/07/20 08:00 Pulse Ox 97 06/07/20 08:00 Body Mass Index 27.0 Const: General: cooperative, healthy appearing and no acute distress Orientation/consciousness: oriented to person, oriented to place and oriented to time HENMT: Head: Yes normal to inspection Neck: Carotids: no bruits Chest: Chest palpation & inspection: normal inspection of the chest Resp: Effort & Inspection: normal respiratory effort and able to speak in complete sentences Auscultation: clear to auscultation bilaterally Cardio: Rate: regular rate Heart sounds: S1 normal heart sound present and S2 normal heart sound present GI: Inspection: Yes normal to inspection Skin: General skin exam: no rashes or lesions noted Wounds: no wounds Neuro: General: oriented to person, oriented to place, oriented to time and CN's II-XI intact bilaterally Extrem: General: Yes normal to inspection, Yes full ROM and Yes no clubbing, cyanosis or edema Psych: Appearance: grossly normal and well kempt Speech and movement: Normal speech and movement present Affect: normal affect Progress Note: A&P Assessment and plan (1) Stroke due to stenosis of left carotid artery: Status: Acute Assessment and Plan: Patient with carotid stenosis with stroke. Stable from my perspective for discharge. Will remain on 2 anti-platelet agents of aspirin and Plavix. He is scheduled for left carotid endarterectomy on June 17, 2020. Risks benefits complications of the procedure were discussed in detail with the patient including but not limited to bleeding, infection, stroke, and . He demonstrated a clear understanding. He would like to proceed with the procedure. Will await final cardiac risk stratification. Thank you for allowing us to assist in his care. The patient had an opportunity to ask questions regarding the treatment plan. All questions were answered. Imaging studies, laboratory studies and physical exam results were discussed and reviewed in detail. No major barriers to understanding were identified. The patient expressed understanding and agreement with the above treatment plan. The patient is aware they should contact our office by phone for worsening of the current condition or the appearance of new symptoms. Thank you for allowing me to participate in the vascular care of this patient. If you have any questions or concerns regarding the treatment for the above condition please do not hesitate to contact me. The office telephone contact is [phone]. This note is constructed using voice recognition software. While every effort has been made to ensure accuracy, amusement equipment operator errors may have been included. Thank you for allowing me to participate in the care of your patient. Yours sincerely, Dar Parra MD, FACS, R.P.V.I. Fall Risk Details Current Medications: Current Medications Generic Name Dose Route Start Last Admin Trade Name Freq PRN Reason Stop Dose Admin Acetaminophen 650 mg 06/04/20 11:10 06/05/20 10:30 Acetaminophen 325 Mg Tablet PO 650 mg Q6H PRN Administration Pain, Mild (Pain Scale 1-3) Albuterol Sulfate 2 puff 06/04/20 11:10 Albuterol Sulfate 90 Mcg 8 Gm Inhaler INHALE Q6H PRN Shortness Of Breath Or Wheezing Aspirin 81 mg 06/05/20 09:00 06/07/20 07:46 Aspirin Enteric Coated 81 Mg Tablet. PO 81 mg DAILY BENITA Administration Atorvastatin Calcium 80 mg 06/04/20 21:00 06/06/20 20:17 Atorvastatin Calcium 80 Mg Tablet PO 80 mg BEDTIME BENITA Administration Clopidogrel Bisulfate 75 mg 06/05/20 09:00 06/07/20 07:46 Clopidogrel Bisulfate 75 Mg Tablet PO 75 mg DAILY BENITA Administration Enoxaparin Sodium 40 mg 06/04/20 18:00 06/06/20 17:36 Enoxaparin Sodium 40 Mg/0.4 Ml Syringe SUBCUT 40 mg Q24H BENITA Administration Fluoxetine HCl 20 mg 06/04/20 11:15 06/07/20 07:46 Fluoxetine Hcl 20 Mg Capsule PO 20 mg DAILY BENITA Administration Mirtazapine 15 mg 06/04/20 21:00 06/06/20 20:17 Mirtazapine 15 Mg Tablet PO 15 mg BEDTIME BENITA Administration Naltrexone HCl 50 mg 06/05/20 09:00 06/07/20 07:46 Naltrexone Hcl 50 Mg Tablet PO 50 mg DAILY BENITA Administration Nicotine Polacrilex 2 mg 06/04/20 13:12 Nicotine Polacrilex 2 Mg Lozenge BUCCAL Q2H PRN Nicotine Cravings Non-Formulary Medication 1 tab 06/04/20 21:00 Nabumetone PO BID BENITA Non-Formulary Medication 25 mg 06/04/20 11:10 Vistaril PO TID PRN Anxiety Ondansetron HCl 4 mg 06/04/20 11:10 Ondansetron Hcl 4 Mg/2 Ml Vial IVPUSH Q8H PRN Nausea and Vomiting Quetiapine Fumarate 100 mg 06/04/20 11:15 06/07/20 07:46 Quetiapine Fumarate 100 Mg Tablet PO 100 mg DAILY BENITA Administration Quetiapine Fumarate 350 mg 06/04/20 21:00 06/06/20 20:17 Quetiapine Fumarate 100 Mg Tablet PO 350 mg BEDTIME BENITA Administration Sodium Chloride 3 ml 06/04/20 16:00 06/07/20 07:45 0.9 % Sodium Chloride Flush 3 Ml Syringe IVFLUSH 3 ml QSHIFT BENITA Administration Time Spent With Patient Time: Total time spent is greater than 50% in coordination of care (as documented) at patient's floor/unit and/or counseling patient: Time with patient: 15 - 24 minutes
--- NOTE | 2020-06-07 14:41 | PM.PNCARD ---
Subjective Subjective Date of Service: 06/07/20 Principal diagnosis: CVA, Carotid stenosis Interval history: Cardiology follow up for preop clearance. Seen at 1400. Today he reports feeling well. He is being discharged. No CP, sob, palpitation. Tele showing SR. Review of Systems Review of Systems as above Yes all other systems are reviewed and are negative Reports Normal hearing present Reports as per HPI and Reports Normal hearing present Physical Exam Vital Signs: Last Vital Signs Temp 98.6 F 06/07/20 08:00 Pulse 65 06/07/20 08:00 Resp 20 06/07/20 08:00 BP 138/63 06/07/20 08:00 Pulse Ox 97 06/07/20 08:00 Body Mass Index 27.0 Const General: cooperative, healthy appearing, no acute distress, alert and awake Orientation/consciousness: patient oriented x3 Resp Effort & Inspection: normal respiratory effort, able to speak in complete sentences and not labored Auscultation: clear to auscultation bilaterally, no crackles, no rales, no rhonchi and no wheezes Cardio Palpation: normal PMI Rate: regular rate Rhythm: regular rhythm Heart sounds: S1 normal heart sound present and S2 normal heart sound present Peripheral pulses: Peripheral pulses 2+ throughout Neuro General: patient oriented x3 Cranial nerves: Yes Normal hearing present Extrem General: Yes normal to inspection and No edema Results Labs and Meds Result diagrams: 06/05/20 04:56 06/05/20 04:56 Imaging Radiologist's impression: Impressions Myocardial Perfusion Scan Nuc Med 06/05/20 16:06 Impression: 1. Myocardial perfusion imaging study shows likely normal myocardial perfusion 2. Gated LVEF is 63% 3. Transient ischemic dilatation not present EKG is nondiagnostic for ischemia Progress Note: A&P Assessment and plan (1) Preoperative cardiovascular examination: Status: Acute Assessment and Plan: Carotid ultrasound shows 80% Left ICA stenosis. Plan for intervention with Dr Parra in near future. He underwent Pharm nuclear stress test showing normal myocardial perfusion imaging. Echo shows normal Left and right heart function, no regional WMA. Tele shows SR, controlled rates. Case reviewed with Dr Lazo. Pt is intermediate cardiac risk to proceed with carotid intervention. Continue aspirin, plavix and atorvastatin. Hold if needed for procedure with restart as soon as able. Call/ consult cardiology if needed. (2) Ischemic stroke: Problem details: Acute left parietal infarct in multiple areas suggestive of embolic event Status: Acute (3) Carotid stenosis: Status: Acute (4) Stroke due to stenosis of left carotid artery: Status: Acute Time Spent With Patient Time: Total time spent is greater than 50% in coordination of care (as documented) at patient's floor/unit and/or counseling patient: Time with patient: less than 15 minutes
== END 2020-06-07 14:31 | disposition home or self-care (01) | DRG 45 ==
LOC: HO.ED 06-04 09:47 → HO.IMC 06-04 11:55
PROVIDERS: Nurse Practitioner Acute Care; Admitting Provider Internal Medicine; Emergency Provider Student in an Organized Health Care Education/Training Program; PCP Internal Medicine; Visit Provider Internal Medicine
DX: I63.232 Cerebral infarction due to unspecified occlusion or stenosis of left carotid arteries (principal); F10.10 Alcohol abuse, uncomplicated; F17.210 Nicotine dependence, cigarettes, uncomplicated; F32.9 Major depressive disorder, single episode, unspecified; F41.9 Anxiety disorder, unspecified; Z71.6 Tobacco abuse counseling; Z20.828 Contact with and (suspected) exposure to other viral communicable diseases; R29.700 NIHSS score 0; Z79.02 Long term (current) use of antithrombotics/antiplatelets; Z79.82 Long term (current) use of aspirin; Z79.899 Other long term (current) drug therapy
CPT/HCPCS: 36415; 70450; 70498; 70551; 71101; 78452; 80048; 80053; 80061; 80307; 80320; 81003; 85025; 87635; 93017; 93306; 93880; 96361; 96374; 97116; 97162; 97165; 99285; A9500; J0280; J1650; J2060; J2785; Q9967

== ENCOUNTER 2020-06-17 05:37 | Inpatient (IN) | payer OTHER, SELFPAY ==
[2020-06-11 11:40] VITALS: BMI 26.9
--- NOTE | 2020-06-13 13:07 | P.CONAN_ITS ---
Documented by User: Corazon Concepcion 06/13/20 13:24 HPI - Anesthesia Eval Consult details Narrative: 49yo M for Left Carotid Endarterectomy [facility] [place] [facility]C 06/07/19 for acute stroke r/t carotid stenosis ETOH/Smoker Cardiology cleared at [facility] Past Medical History Medical History Alcoholism Anxiety Bipolar 1 disorder Carotid stenosis Clavicle fracture Depression H/O: HTN (hypertension) Ischemic stroke Mood disorder Surgical History Surgical History History of surgical procedure Hx of hand surgery Hx of hand surgery Social History Social History Household Members: None Alcohol intake: current Alcohol intake frequency: 3 or more drinks per day Alcohol type: beer Smoking Status: Current every day smoker Tobacco Type: Cigarette Packs Per Day: 1 Cigarettes Per Day: 11 Use of substances other than those prescribed or required for medical reasons: No Advance Directives: No service: No Meds Allergies Allergy/AdvReac Type Severity Reaction Status Date / Time haloperidol [From HALDOL] Allergy Intermediate TONGUE Verified 04/07/20 14:51 SWELLING Home Medications Medication Instructions Recorded Confirmed Type quetiapine [Seroquel] 300 mg PO BEDTIME 04/07/20 06/17/20 History albuterol sulfate 2 puff INHALATION NEEDED PRN 06/04/20 06/11/20 History fluoxetine 20 mg PO QAM 06/04/20 06/17/20 History mirtazapine 15 mg PO BEDTIME 06/04/20 06/17/20 History nabumetone 500 mg PO BID 06/04/20 06/17/20 History naltrexone 50 mg PO DAILY 06/04/20 06/17/20 History hydroxyzine pamoate [Vistaril] 25 mg PO NEEDED PRN 06/07/20 06/11/20 History clonidine HCl 0.1 mg PO DAILY 06/17/20 06/17/20 History quetiapine 50 mg PO BEDTIME 06/17/20 06/17/20 History quetiapine 100 mg PO QAM 06/17/20 06/17/20 History Exam Exam Date and Time: June 13, 2020 1307 Height,Weight and Vital Signs: Height 5 ft 11 in Weight 87.543 kg Pertinent Lab Results Pertinent Lab Results: Laboratory Tests 06/05/20 06/05/20 04:56 04:56 WBC 6.4 Hgb 13.1 L Hct 39.7 L Plt Count 340 Sodium 137 Potassium 4.0 Chloride 104 Carbon Dioxide 23 BUN 13 Creatinine 0.87 Narrative Narrative: Echo 06/04/20: Conclusions: - Normal left ventricular size and systolic function. - Normal right ventricular cavity size and systolic function. - The left atrium is mildly dilated. - There is no evidence of interatrial shunt by color Doppler and contrast. - There is mild thickening of the aortic valve. Lexiscan Stress 06/05/20: NM john perf SPECT rest & str Impression: 1. Myocardial perfusion imaging study shows likely normal myocardial perfusion 2. Gated LVEF is 63% 3. Transient ischemic dilatation not present EKG is nondiagnostic for ischemia CT angio neck 06/05/20: IMPRESSION: 1. 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 2. Calcific atherosclerotic disease causes 35% stenosis of the origin of the right ICA. 3. Moderate atherosclerotic narrowing of the origin of the right vertebral artery. Mild atherosclerotic narrowing of the origin of the left vertebral artery. Left dominant vertebral artery. Assessment and Plan Assessment Anesthesia Assessment: Chart Reviewed Documented by User: Angus Stapleton MD 06/17/20 07:27 [facility] Past Medical History Medical History Alcoholism Anxiety Bipolar 1 disorder Carotid stenosis Clavicle fracture Depression H/O: HTN (hypertension) Ischemic stroke Mood disorder Surgical History Surgical History History of surgical procedure Hx of hand surgery Hx of hand surgery Social History Social History Household Members: None Alcohol intake: current Alcohol intake frequency: 3 or more drinks per day Alcohol type: beer Smoking Status: Current every day smoker Tobacco Type: Cigarette Packs Per Day: 1 Cigarettes Per Day: 11 Use of substances other than those prescribed or required for medical reasons: No Advance Directives: No service: No Meds Allergies Allergy/AdvReac Type Severity Reaction Status Date / Time haloperidol [From HALDOL] Allergy Intermediate TONGUE Verified 04/07/20 14:51 SWELLING Home Medications Medication Instructions Recorded Confirmed Type quetiapine [Seroquel] 300 mg PO BEDTIME 04/07/20 06/17/20 History albuterol sulfate 2 puff INHALATION NEEDED PRN 06/04/20 06/11/20 History fluoxetine 20 mg PO QAM 06/04/20 06/17/20 History mirtazapine 15 mg PO BEDTIME 06/04/20 06/17/20 History nabumetone 500 mg PO BID 06/04/20 06/17/20 History naltrexone 50 mg PO DAILY 06/04/20 06/17/20 History hydroxyzine pamoate [Vistaril] 25 mg PO NEEDED PRN 06/07/20 06/11/20 History clonidine HCl 0.1 mg PO DAILY 06/17/20 06/17/20 History quetiapine 50 mg PO BEDTIME 06/17/20 06/17/20 History quetiapine 100 mg PO QAM 06/17/20 06/17/20 History Assessment and Plan Assessment Anesthesia Assessment: Anesthesia Plan Discussed, Smoking Cess. Discussed and Chart Reviewed Final Anesthetic Review NPO: Yes ASA Class: III Final Preanesthetic Review: No Changes in Pt Med Stat, Meds/Allgs Chart Revi ewed, Consent Obtained/Reviewed and Anes Risks/Benef Reviewed Patient Risk: High Procedure Risk: High Anesthetic Plan Anesthetic Plan: GA Disposition: Standard PACU and Inp. Admit - ICU
[2020-06-17] VITALS (24 sets, daily range): BP systolic 102–146; BP diastolic 47–79; PULSE 59–91; RESP 10–25; TEMP 36.2–37.2; O2SAT 94–100
[2020-06-17 06:36] LABS: COVID-19 Test Negative (Negative)
[2020-06-17] MEDS: ceFAZolin Sodium/Dextrose,Iso 2 GM/50 ML PIGGYBACK IV (06:41)
[2020-06-17] MEDS: Lactated Ringers 1,000 ML 100 ML IVCONT (06:41)
--- NOTE | 2020-06-17 08:09 | PC.NURSE ---
patient brought in a large white bag full of medications. no narcotics in bag. called pharmacy and they stated to only to secure narcotics/controlled substances. also there was eight dollars and his [employer] [facility] card-labeled and put into his bag.
--- NOTE | 2020-06-17 10:17 | MHC.SHP ---
Pre-Procedural Eval Section B Chief Complaint: Carotid endarterectomy Allergies: Allergies Allergy/AdvReac Type Severity Reaction Status Date / Time [facility] Allergy Intermediate TONGUE Verified 04/07/20 14:51 SWELLING Plan I have reviewed the history and physical and performed a pertinent physical examination on my patient. No changes have occurred unless specified.
[2020-06-17] MEDS: Morphine Sulfate 2 MG/ML CARTRIDGE IVPUSH (12:13)
[2020-06-17] MEDS: Sodium Chloride 0.45 % 1,000 ML 80 ML IVCONT ×2 (12:15→23:51)
[2020-06-17] MEDS: FLUoxetine HCl 20 MG CAPSULE PO (13:32)
[2020-06-17] MEDS: QUEtiapine Fumarate 50 MG TABLET 100 MG PO (13:32)
[2020-06-17] MEDS: oxyCODONE HCl Immed Release 5 MG TABLET PO ×2 (13:45→20:44)
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
[2020-06-17] MEDS: Flu Vacc QS2020-21(6mos up)/PF 0.5 ML SYRINGE IM (16:33)
--- NOTE | 2020-06-17 19:05 | PC.NURSE ---
pt admit to icu s/p carotid endarterectomy; bp stable via liz; medicated for pain morphine 2 mg with limited effect and oxycodone for moderate pain with good effect; pt turned and repositioned; skin d&i; surgical dsg with sm stain on distal portion of dsg; smoking cessation education provided; 1/2 ns at 80mls/hr; pt given lunch and dinner tolerating po fluid and food well; home meds in locked med room; report given to oncoming saji churchill
[2020-06-17] MEDS: QUEtiapine Fumarate 50 MG TABLET PO (20:43)
[2020-06-17] MEDS: QUEtiapine Fumarate 300 MG TABLET PO (20:43)
[2020-06-17] MEDS: Atorvastatin Calcium 80 MG TABLET PO (20:43)
[2020-06-17] MEDS: Mirtazapine 15 MG TABLET PO (20:43)
[2020-06-17] MEDS: 0.9 % Sodium Chloride Flush 3 ML SYRINGE IVFLUSH (23:50)
[2020-06-18] VITALS (12 sets, daily range): BP systolic 100–158; BP diastolic 48–79; PULSE 56–73; RESP 12–24; TEMP 36.6–36.7; O2SAT 94–98
[2020-06-18] MEDS: oxyCODONE HCl Immed Release 5 MG TABLET PO (03:45)
[2020-06-18 06:12] LABS: MANUAL DIFF FLAG NO
[2020-06-18 06:19] LABS: Anion Gap 12 (12-20); Blood Urea Nitrogen 10 mg/dL (9-16); Calcium 8.2 mg/dL (8.4-10.2); Carbon Dioxide 21 mmol/L (22-29); Chloride 107 mmol/L (96-108); Creatinine Clr Calc Pharmacy 121.7; Estimated Glomerular Filt Rate > 60; Glucose Random 136 mg/dL (60-115); Sodium 136 mmol/L (135-145)
[2020-06-18 06:21] LABS: Basophils Percent Auto 0.2 % (0-2); Eosinophils Absolute Auto 0.1 X10*3/uL (0.0-0.4); Eosinophils Percent Auto 0.4 % (0-4); Hematocrit 36.6 % (42-52); Hemoglobin 12.1 g/dl (14.0-18.0); Imm Gran Abs Auto 0.05 X10*3/uL (0.00-0.03); Imm Gran Pct Auto 0.4 % (0.0-0.4); Lymphocytes Absolute Auto 2.1 X10*3/uL (1.2-4.9); Lymphocytes Percent Auto 15.4 % (20-40); Mean Corpuscular HGB Conc 33.1 g/dl (31.0-36.0); Mean Corpuscular Hemoglobin 29.7 pg (27.0-33.0); Mean Corpuscular Volume 89.9 fL (80-98); Mean Platelet Volume 9.3 fL (9.4-12.4); Monocytes Absolute Auto 0.8 X10*3/uL (0.1-1.2); Neutrophils Absolute Auto 10.5 X10*3/uL (2.0-8.3); Neutrophils Percent Auto 77.6 % (45-73); Platelet Count 344 X10*3/uL (160-400); Red Blood Count 4.07 X10*6/uL (4.60-5.80); White Blood Count 13.6 X10*3/uL (4.8-10.8)
[2020-06-18] MEDS: FLUoxetine HCl 20 MG CAPSULE PO (08:03)
[2020-06-18] MEDS: Clopidogrel Bisulfate 75 MG TABLET PO (08:03)
[2020-06-18] MEDS: 0.9 % Sodium Chloride Flush 3 ML SYRINGE IVFLUSH (08:03)
[2020-06-18] MEDS: Naltrexone HCl 50 MG TABLET PO (08:03)
[2020-06-18] MEDS: QUEtiapine Fumarate 50 MG TABLET 100 MG PO (08:03)
[2020-06-18] MEDS: Aspirin Enteric Coated 81 MG TABLET.DR PO (08:03)
[2020-06-18] MEDS: Morphine Sulfate 2 MG/ML CARTRIDGE IVPUSH (08:06)
--- NOTE | 2020-06-18 08:45 | MHC.CM.PN ---
pt is staying at a freinds, he reports he is independent at baseline. his freind can however help him c any needs he may have. he also has a brother that lives in the area and can help if needed. however , neither of them can help c a ride home at [place], pt has requested help c this. he will be taking the [facility] courtesy van home. pt has requested a ref. to [facility] for nsg at [place] , a ref. for this has been made. [place] plan is home no svcs. cm to cont. to follow.
--- NOTE | 2020-06-18 11:16 | MHC.STROKE ---
Addendum entered by Areli Amezcua RN 06/18/20 11:54: Patient did have on pneumatic compression devices post-op on 06/17/20. They were removed when he was up in the chair. Original Note: I DID A FOLLOW UP VISIT WITH THE PATIENT S/P CVA AND CEA. HE WAS DOING WELL. HE CONFIRMED TO ME THAT HE WAS FOLLOWING ALL THE MD ORDERS THAT WERE GIVEN TO HIM AFTER HIS DISCHARGE ON 06/07/20. HE IS VERY MUCH RELIEVED THAT HE HAD THE SURGERY. HE IS REALLY TRYING TO CUT DOWN ON SMOKING AND HE HAS BEEN USING THE NICOTINE PATCH'S PRESCRIBED TO HIM. I REINFORCED THE SMOKING CESSATION EDUCATION. HE IS ALSO TRYING TO STOP STOP DRINKING BUT HE DID ADMIT TO HAVING A FEW BEERS. I WENT OVER THE STROKE RISK FACTORS AGAIN. HE DID SAY HE HAD A FEW DAYS OVER THE PAST FEW WEEKS WHEN HE FELT LIKE THE STROKE WAS COMING BACK BUT HE TOOK IT EASY AND RESTED. HE IS SO COMMITTED TO MAKING POSITIVE CHANGES IN HIS LIFE. I DID CONTACT THE CARE TEAM GRA[facility]ON AND JUST LET HIM KNOW THE PATIENT WAS INHOUSE IN CASE HE WANTED TO FOLLOW UP WITH HIM WELL.
--- NOTE | 2020-06-18 11:44 | MHC.RECOVSUP ---
Recovery Support note: Patient is a 49 year old Citizen [place] speaking male who presented to [facility] for a scheduled operation and was admitted to ICU after the operation was completed. Patient is known to this video games storywriter from previous consultations. This video games storywriter met with patient in to discuss his alcohol use and recovery. Patient reports he has greatly reduced the amount that he is drinking and that he is feeling motivated to reduce it even more with the goal of stopping entirely. Congratulated patient on the progress that he has made and encouraged him to keep going in that direction. Patient reports he has people he can reach out to for support and that he finds staying busy to be helpful in avoiding alcohol. Discussed support groups with patient and provided patient with information on [facility]'s early recovery groups and IOP. Provided patient with business card so he can reach out to this video games storywriter with any questions or for additional resources.
--- NOTE | 2020-06-18 14:57 | HO.POSTANES ---
Post Anesthesia Evaluation Post Anesthesia Evaluation Vital Signs: Vital Signs Temp Pulse Resp BP Pulse Ox 06/18/20 11:52 60 13 107/54 L 97 06/18/20 11:00 60 16 107/54 L 97 06/18/20 10:00 60 16 106/55 L 97 06/18/20 09:00 66 19 106/53 L 94 06/18/20 08:00 97.8 F 73 24 H 158/79 H 95 06/18/20 07:00 56 18 132/61 97 06/18/20 06:08 57 12 115/55 L 97 06/18/20 05:06 59 14 135/61 98 06/18/20 03:50 98.0 F 62 14 125/55 L 98 Anesthesia: General Endotracheal-GETA Mental Status: Awake Pain Control: Satisfactory Nausea/Vomiting: None Hydration: Adequate Anesthesia-Related Issues: No Anes. Related Issues
--- NOTE | 2020-06-18 22:37 | DS_ITS ---
ADMITTING DIAGNOSIS: Left carotid stenosis with stroke. DISCHARGE DIAGNOSIS: Left carotid stenosis with stroke. HISTORY OF PRESENT ILLNESS: The patient is a 49-year-old gentleman, who originally presented on June 04 of this year to the emergency room. He was found to have high-grade left carotid stenosis with stroke. He was subsequently worked up. He was brought in on June 17 electively for left carotid endarterectomy. The carotid endarterectomy was uneventful. Postoperatively, he was observed in our ICU overnight. Postop that same day, Valentine was removed and he was on a regular diet. Postop day 1, A-line was removed and he was up and ambulatory. He was subsequently discharged. CONDITION UPON DISCHARGE: Stable. DISCHARGE DIET: Regular. DISCHARGE INSTRUCTIONS: Included follow up with me in 2 weeks. No driving until seen by me. DISCHARGE MEDICATIONS: Included resuming all home medications. Pain medication was added for comfort. Thank you for allowing us to assist in his care. MD GRZEGORZ Martinez/SERGIO / [phone]
--- NOTE | 2020-06-21 13:43 | OP_ITS ---
SURGEON: Dar Parra MD INDICATIONS: Cl is a 49-year-old gentleman, who originally presented to the hospital 2 to 3 weeks' prior, was noted to have a stroke and upon workup was noted to have high-grade carotid stenosis. He now presents for operative intervention. Risks, benefits, and complications were discussed in detail with the patient and the patient understood and consented. PREOPERATIVE DIAGNOSIS: POSTOPERATIVE DIAGNOSIS: PROCEDURE PERFORMED: Left carotid endarterectomy. ESTIMATED BLOOD LOSS: 100 mL. COMPLICATIONS: ANESTHESIA: General. ASSISTANTS: SPECIMENS: Eric. PREPROCEDURE DIAGNOSIS: Left carotid stenosis with stroke. POSTPROCEDURE DIAGNOSIS: Left carotid stenosis with stroke. DESCRIPTION OF PROCEDURE: The patient was shunt was brought to the operating room, prior to which a time-out was called for patient identification and site verification. Left neck was prepped and draped in standard surgical fashion. Once general anesthesia was administered, an incision was carried out over the anterior border of the sternocleidomastoid. We were able to dissect down. We then ligated the facial branch of the internal jugular vein with 3-0 silk ties, and then, we were able to dissect down into the carotid sheath. We were able to identify the internal, common and external carotid. The internal and external were isolated with silastic loops. The common carotid was isolated with a Surekha tourniquet. Once this was accomplished, 5000 units of systemic heparin was administered. After 5 minutes of circulation time, arteriotomy was made from the common carotid to the internal carotid. A Rojas shunt was then placed. Once this was accomplished, we then performed the endarterectomy. Distal flap was tacked down with 7-0 Prolene sutures. We removed any loose debris. It was irrigated clean. No evidence of any loose debris. XenoSure patch was circumferentially anastomosed using a 6-0 Prolene suture. Prior to closure, it was flushed clear. Once this was all accomplished, we then closed and reestablished flow in external common and internal in that sequence. Once this was all accomplished, adequate hemostasis was achieved. Deep layer was reapproximated using 2-0 Vicryl, superficial layer with 3-0 Vicryl, and finally, skin with 4-0 Monocryl. Sterile dressing was applied. At the end of the case, sponge and instrument counts were correct. The patient tolerated the procedure well and returned to Recovery with stable vitals and neurologically intact. POLICE COMMANDING OFFICER: Dr. Stokes. DRAINS: None. MD GRZEGORZ Martinez/SERGIO / [phone]
== END 2020-06-18 12:53 | disposition home or self-care (01) | DRG 24 ==
LOC: HO.SSSA 05:54 → HO.ICU 10:36
PROVIDERS: Admitting Provider Surgery Vascular Surgery; PCP Internal Medicine; Visit Provider Surgery Vascular Surgery
PROC: 03CJ0ZZ Extirpation of Matter from Left Common Carotid Artery, Open Approach (ICD-10-PCS; CPT 35301; principal; 2020-06-17 07:30)
DX: I65.22 Occlusion and stenosis of left carotid artery (principal); E78.5 Hyperlipidemia, unspecified; F17.210 Nicotine dependence, cigarettes, uncomplicated; I25.10 Atherosclerotic heart disease of native coronary artery without angina pectoris; Z23 Encounter for immunization; Z71.6 Tobacco abuse counseling; Z20.822 Contact with and (suspected) exposure to COVID-19; Z79.02 Long term (current) use of antithrombotics/antiplatelets; Z79.82 Long term (current) use of aspirin; Z79.891 Long term (current) use of opiate analgesic; Z79.899 Other long term (current) drug therapy
CPT/HCPCS: 36415; 80048; 85025; 86850; 86900; 86901; 87635; 88304; 88311; 90686; C1768; J0690; J1100; J2250; J2270; J2370; J2405; J3010

== ENCOUNTER 2020-06-25 07:05 | Outpatient (REF) | payer OTHER, SELFPAY | END 2020-06-25 07:06 | disposition home or self-care (01) | LOC: HO.LAB 07:05 | PROVIDERS: Visit Provider Internal Medicine | DX: Z20.822 Contact with and (suspected) exposure to COVID-19 (principal) | CPT/HCPCS: 36415; C9803; U0003 ==

== ENCOUNTER → 2020-07-18 14:30 | Outpatient (BNVA) | payer OTHER, SELFPAY | PROVIDERS: PCP Internal Medicine; Visit Provider Surgery Vascular Surgery | DX: I63.232 Cerebral infarction due to unspecified occlusion or stenosis of left carotid arteries (principal) | CPT/HCPCS: 99212 ==

== ENCOUNTER 2020-10-10 13:22 | Outpatient (REF) | payer OTHER, SELFPAY ==
--- NOTE | ~2020-10-10 | US_ITS ---
EXAMINATION: US EXTRACRANIAL CAROTID DUPLEX, BILATERAL CLINICAL INFORMATION: Status post left carotid endarterectomy. COMPARISON: 06/04/2020 TECHNIQUE: Real-time ultrasound and Doppler techniques (integrating B-mode 2-D vascular images, Doppler spectral analysis and color-flow Doppler imaging) were utilized to interrogate the extracranial carotid arteries, the vertebral arteries and proximal subclavian arteries bilaterally. The degree of stenosis is determined by criteria similar to NASCET. FINDINGS: Right Side: 1. There is mild mixed density atherosclerotic plaque seen in the bifurcation/proximal ICA region. 2. The common carotid artery PSV proximally is 113 cm/s and distally 109 cm/s. 3. The proximal internal carotid artery velocities are 119 cm/s systolic and 147 cm/s diastolic. 4. The proximal external carotid artery PSV is 165 cm/s. 5. The vertebral artery shows antegrade flow. 6. The subclavian artery waveforms are normal. 7. There is some narrowing seen in the proximal right internal carotid artery but no flow disturbance is seen. Left Side: 1. There is minimal hypoechoic atherosclerotic plaque seen in the bifurcation/proximal ICA region. 2. The common carotid artery PSV proximally is 130 cm/s and distally 111 cm/s. 3. Dramatic improvement in appearances since the prior study with now normal velocities. The proximal internal carotid artery velocities are 95 cm/s systolic and 26 cm/s diastolic. Previously, these had been 464 and 187. 4. The proximal external carotid artery PSV is 159 cm/s. 5. The vertebral artery shows antegrade flow. 6. The subclavian artery waveforms are normal. US/US carotid duplex BI IMPRESSION: 1. RIGHT: Minimal, non-hemodynamically significant stenosis of the proximal right internal carotid artery corresponding to a 0-49% stenosis by velocity criteria. 2. LEFT: Minimal, non-hemodynamically significant stenosis of the proximal left internal carotid artery corresponding to a 0-49% stenosis by velocity criteria. There has been a dramatic improvement in appearances since the patient's endarterectomy where peak systolic velocities have fallen from 464 to 95 and end-diastolic velocity has fallen from 187 to 26.
== END 2020-10-10 13:23 | disposition home or self-care (01) ==
LOC: HO.US 13:22
PROVIDERS: Visit Provider Surgery Vascular Surgery
DX: I63.232 Cerebral infarction due to unspecified occlusion or stenosis of left carotid arteries (principal)
CPT/HCPCS: 93880

== ENCOUNTER → 2020-10-15 13:08 | Outpatient (BNVA) | payer OTHER, SELFPAY | PROVIDERS: PCP Internal Medicine; Visit Provider Surgery Vascular Surgery | DX: I65.23 Occlusion and stenosis of bilateral carotid arteries (principal) | CPT/HCPCS: 99212 ==

== ENCOUNTER 2021-04-02 11:31 | Outpatient (REF) | payer OTHER, SELFPAY ==
[2021-04-02 11:48] LABS: MANUAL DIFF FLAG NO
[2021-04-02 11:53] LABS: Basophils Percent Auto 0.4 % (0-2); Eosinophils Absolute Auto 0.3 X10*3/uL (0.0-0.4); Hematocrit 43.2 % (42.0-52.0); Hemoglobin 14.1 g/dl (14.0-18.0); Imm Gran Abs Auto 0.03 X10*3/uL (0.00-0.03); Imm Gran Pct Auto 0.3 % (0.0-0.4); Lymphocytes Absolute Auto 2.3 X10*3/uL (1.2-4.9); Lymphocytes Percent Auto 23.8 % (20-40); Mean Corpuscular HGB Conc 32.6 g/dl (31.0-36.0); Mean Corpuscular Hemoglobin 28.8 pg (27.0-33.0); Mean Corpuscular Volume 88.3 fL (80.0-98.0); Mean Platelet Volume 8.7 fL (9.4-12.4); Monocytes Absolute Auto 0.4 X10*3/uL (0.1-1.2); Monocytes Percent Auto 4.3 % (2-11); Neutrophils Absolute Auto 6.71 x10*3/uL (2.0-8.3); Neutrophils Percent Auto 68.2 % (45-73); Platelet Count 343 X10*3/uL (160-400); Red Blood Count 4.89 X10*6/uL (4.60-5.80); Red Cell Distribution Width 12.7 % (11.0-16.0); White Blood Count 9.8 X10*3/uL (4.8-10.8)
[2021-04-02 12:34] LABS: Alanine Aminotransferase 33 U/L (0-40); Albumin Level 4.7 g/dL (3.5-5.0); Alkaline Phosphatase 73 U/L (39-117); Anion Gap 11 (12-20); Aspartate Amino Transferase 19 U/L (5-37); Bilirubin Total 0.7 mg/dL (0.0-1.0); Blood Urea Nitrogen 12 mg/dL (9-16); Calcium 9.2 mg/dL (8.4-10.2); Carbon Dioxide 26 mmol/L (22-29); Chloride 105 mmol/L (96-108); Cholesterol 162 mg/dL; Estimated Glomerular Filt Rate > 60; Glucose Random 96 mg/dL (60-115); HDL Cholesterol 46 mg/dL; LDL Cholesterol Calculated 99 mg/dl; Potassium 3.9 mmol/L (3.3-5.1); Sodium 138 mmol/L (135-145); Total Protein 7.8 g/dL (6.5-8.0); Triglycerides 87 mg/dL
[2021-04-02 12:42] LABS: Estimated Average Glucose 103 mg/dL; Hemoglobin A1c % 5.2 %
[2021-04-02 12:57] LABS: Free T4 (Free Thyroxine) 1.06 ng/dL (0.71-1.85); Thyroid Stimulating Hormone 2.66 uIU/mL (0.32-4.0)
[2021-04-02 13:19] LABS: Folate 11.5 ng/mL (> or = 4.0); Vitamin B12 575 pg/mL (200-900)
== END 2021-04-02 11:32 | disposition home or self-care (01) ==
LOC: HO.LAB 11:31
PROVIDERS: PCP Internal Medicine; Visit Provider Internal Medicine
DX: E78.00 Pure hypercholesterolemia, unspecified (principal)
CPT/HCPCS: 36415; 80053; 80061; 82607; 82746; 83036; 84439; 84443; 85025

== ENCOUNTER 2021-04-18 14:09 | Outpatient (REF) | payer OTHER, SELFPAY ==
--- NOTE | ~2021-04-18 | US_ITS ---
EXAMINATION: US EXTRACRANIAL CAROTID DUPLEX, BILATERAL CLINICAL INFORMATION: Stenosis of the bilateral carotid arteries COMPARISON: Carotid ultrasound on 10/10/2020 TECHNIQUE: Real-time ultrasound and Doppler techniques (integrating B-mode 2-D vascular images, Doppler spectral analysis and color-flow Doppler imaging) were utilized to interrogate the extracranial carotid arteries, the vertebral arteries and proximal subclavian arteries bilaterally. The degree of stenosis is determined by criteria similar to NASCET. FINDINGS: Right Side: 1. There is heterogeneous atherosclerotic plaque seen in the bifurcation/proximal ICA region. 2. The common carotid artery PSV proximally is 117 cm/s and distally 104 cm/s. 3. The proximal internal carotid artery velocities are 127 cm/s systolic and 51 cm/s diastolic. 4. The proximal external carotid artery PSV is 169 cm/s. 5. The vertebral artery shows antegrade flow. 6. The subclavian artery waveforms are normal. Left Side: 1. There is calcified atherosclerotic plaque seen in the bifurcation/proximal ICA region. 2. The common carotid artery PSV proximally is 114 cm/s and distally 114 cm/s. 3. The proximal internal carotid artery velocities are 137 cm/s systolic and 41 cm/s diastolic. 4. The proximal external carotid artery PSV is 141 cm/s. 5. The vertebral artery shows antegrade flow. 6. The subclavian artery waveforms are normal. US/US carotid duplex BI IMPRESSION: 1. RIGHT: Moderate, hemodynamically significant stenosis of the proximal right internal carotid artery corresponding to a 50-79% stenosis by velocity criteria. 2. LEFT: Moderate, hemodynamically significant stenosis of the proximal left internal carotid artery corresponding to a 50-79% stenosis by velocity criteria. 3. There has been progression of disease compared to the exam on 10/10/2020 secondary to slightly increased velocities in the bilateral proximal internal carotid arteries.
== END 2021-04-18 14:10 | disposition home or self-care (01) ==
LOC: HO.US 14:09
PROVIDERS: PCP Internal Medicine; Visit Provider Surgery Vascular Surgery
DX: I65.23 Occlusion and stenosis of bilateral carotid arteries (principal)
CPT/HCPCS: 93880

== ENCOUNTER → 2021-04-22 10:45 | Outpatient (BNVA) | payer OTHER, SELFPAY | PROVIDERS: PCP Internal Medicine; Visit Provider Surgery Vascular Surgery | DX: I65.23 Occlusion and stenosis of bilateral carotid arteries (principal) | CPT/HCPCS: 99212 ==

== ENCOUNTER 2022-06-08 13:52 | Outpatient (REF) | payer OTHER, SELFPAY ==
--- NOTE | ~2022-06-08 | US_ITS ---
EXAMINATION: US EXTRACRANIAL CAROTID DUPLEX, BILATERAL CLINICAL INFORMATION: Carotid stenosis COMPARISON: 04/18/2021 and 10/10/2020 TECHNIQUE: Real-time ultrasound and Doppler techniques (integrating B-mode 2-D vascular images, Doppler spectral analysis and color-flow Doppler imaging) were utilized to interrogate the extracranial carotid arteries, the vertebral arteries and proximal subclavian arteries bilaterally. The degree of stenosis is determined by criteria similar to NASCET. FINDINGS: Right Side: 1. There is mild atherosclerotic plaque seen in the bifurcation/proximal ICA region. 2. The common carotid artery PSV proximally is 121 cm/s and distally 101 cm/s. 3. The proximal internal carotid artery velocities are 99.1 cm/s systolic and 28.7 cm/s diastolic. 4. The proximal external carotid artery PSV is 141 cm/s. 5. The vertebral artery shows antegrade flow. 6. The subclavian artery waveforms are normal. Left Side: 1. There is mild atherosclerotic plaque seen in the bifurcation/proximal ICA region. 2. The common carotid artery PSV proximally is 117 cm/s and distally 104 cm/s. 3. The proximal internal carotid artery velocities are 114 cm/s systolic and 34.6 cm/s diastolic. 4. The proximal external carotid artery PSV is 135 cm/s. 5. The vertebral artery shows antegrade flow. 6. The subclavian artery waveforms are normal. US/US carotid duplex BI IMPRESSION: 1. RIGHT: Minimal, non-hemodynamically significant stenosis of the proximal right internal carotid artery corresponding to a 0-49% stenosis by velocity criteria. 2. LEFT: Minimal, non-hemodynamically significant stenosis of the proximal left internal carotid artery corresponding to a 0-49% stenosis by velocity criteria. 3. There is no change in the category severity of disease when compared to the previous study dated 10/10/2020.
== END 2022-06-08 13:53 | disposition home or self-care (01) ==
LOC: HO.US 13:52
PROVIDERS: PCP Internal Medicine; Visit Provider Surgery Vascular Surgery
DX: I65.23 Occlusion and stenosis of bilateral carotid arteries (principal)
CPT/HCPCS: 93880

== ENCOUNTER 2022-11-23 01:57 | Emergency (ER) | payer OTHER, SELFPAY ==
[2022-11-23 02:18] VITALS: BP 124/76; PULSE 96; O2SAT 97; BMI 24.3
[2022-11-23 02:24] VITALS: BP 149/80; PULSE 98; RESP 18; O2SAT 96
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
[2022-11-23 02:45] LABS: MANUAL DIFF FLAG NO
[2022-11-23 02:47] LABS: Basophils Absolute Auto 0.1 X10*3/uL (0.0-0.2); Basophils Percent Auto 0.5 % (0-2); Eosinophils Absolute Auto 0.3 X10*3/uL (0.0-0.4); Hematocrit 44.7 % (42.0-52.0); Hemoglobin 15.2 g/dl (14.0-18.0); Imm Gran Abs Auto 0.04 X10*3/uL (0.00-0.03); Imm Gran Pct Auto 0.4 % (0.0-0.4); Lymphocytes Absolute Auto 2.8 X10*3/uL (1.2-4.9); Lymphocytes Percent Auto 28.3 % (20-40); Mean Corpuscular Hemoglobin 30.9 pg (27.0-33.0); Mean Corpuscular Volume 90.9 fL (80.0-98.0); Mean Platelet Volume 8.6 fL (9.4-12.4); Monocytes Absolute Auto 0.5 X10*3/uL (0.1-1.2); Monocytes Percent Auto 4.7 % (2-11); Neutrophils Absolute Auto 6.4 x10*3/uL (2.0-8.3); Neutrophils Percent Auto 63.1 % (45-73); Platelet Count 365 X10*3/uL (160-400); Red Blood Count 4.92 X10*6/uL (4.60-5.80); Red Cell Distribution Width 13.2 % (11.0-16.0); White Blood Count 10.1 X10*3/uL (4.8-10.8)
[2022-11-23 03:12] LABS: Anion Gap 16 (12-20); Blood Urea Nitrogen 5 mg/dL (9-16); Calcium 8.7 mg/dL (8.4-10.2); Carbon Dioxide 20 mmol/L (22-29); Chloride 114 mmol/L (96-108); Creatinine Clr Calc Pharmacy 114.9; Estimated Glomerular Filt Rate > 60; Ethanol 391 mg/dL; Glucose Random 91 mg/dL (60-115); Potassium 4.4 mmol/L (3.3-5.1); Sodium 146 mmol/L (135-145)
--- NOTE | 2022-11-23 03:15 | PC.NURSE ---
RN called security per the advisement of Dr Mireles. Pt continuously noted to be up out of bed, ambulating freely in and around his bed; walking into patient's rooms and being disruptive. Staff has attempted multiple times to provide verbal redirection without success. 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
== END 2022-11-23 03:45 ==
PROVIDERS: Emergency Provider Emergency Medicine Emergency Medical Services
DX: Z04.1 Encounter for examination and observation following transport accident (principal); F10.120 Alcohol abuse with intoxication, uncomplicated; Y90.8 Blood alcohol level of 240 mg/100 ml or more; I10 Essential (primary) hypertension; E78.5 Hyperlipidemia, unspecified; Z86.73 Personal history of transient ischemic attack (TIA), and cerebral infarction without residual deficits; Z79.899 Other long term (current) drug therapy; Z79.02 Long term (current) use of antithrombotics/antiplatelets
CPT/HCPCS: 36415; 80048; 80307; 85025; 99283; 99284

== ENCOUNTER 2022-12-31 21:54 | Emergency (ER) | payer OTHER, SELFPAY ==
[2022-12-31 22:10] VITALS: BP 147/86; PULSE 105; O2SAT 99; BMI 25.2
--- OUTSIDE RECORDS SUMMARY | 2022-12-31 22:14 | XMS_ITS | Continuity of Care Document ---
Author Name Unknown Organization [facility] Address [address] [place] [id number] Care Team Providers Care Oracle Erp Developer Name Role Phone Sherri Zepeda MD Primary Care Physician [phone] [place] [facility] [place] - 10/16/[address] [address]- [facility] Encounter Diagnosis Suicidal ideation(Final) - 10/07/19 Discharge Disposition: A-D/C Home Attending Physician: Clayton Michael MD Admitting Physician: Nnamdi Pagan MD Referring Physician: Not on Staff, Referring MD Allergies, Adverse Reactions, Alerts Substance Reaction Severity Status Haldol 1 Active 1tongue swelling Medications hydrOXYzine pamoate 25 mg oral capsule = 25 mg, By Mouth, 4 times a day, PRN Anxiety, # 60 capsule, 0 Refills, Maintenance, 10/16/19 10:28:00 EDT, Capsule, [facility], 179, cm, 10/15/19 8:32:00 EDT, Height, 88.5, kg, 10/08/19 16:28:00 EDT, Dry Weight Start Date: 10/16/19 Status: Ordered nicotine 21 mg/24 hr transdermal film, extended release 1 patch, Topically, Daily, # 30 patch, 0 Refills, Maintenance, 10/16/19 10:35:00 EDT, Patch, [facility], 1 patch Topically Daily, 179, cm, 10/15/19 8:32:00 EDT, Height, 88.5, kg, 10/08/19 16:28:00 EDT, Dry Weight Start Date: 10/16/19 Status: Ordered Remeron 15 mg oral tablet 1 tablet = 15 mg, By Mouth, Daily at bedtime, # 30 tablet, 0 Refills, Maintenance, 10/16/19 10:29:00 EDT, Tablet, [facility], 179, cm, 10/15/19 8:32:00 EDT, Height, 88.5, kg, 10/08/19 16:28:00 EDT, Dry Weight Start Date: 10/16/19 Status: Ordered SEROquel 100 mg oral tablet 400 mg, 4, tablet, By Mouth, Daily at bedtime, # 120 tablet, Refills 0, Tot. Refills 0, Maintenance, 10/16/19 10:29:00 EDT, Route to Pharmacy Electronically, [facility], 179, cm, 10/15/19 8:32:00 EDT, Height, 88.5, kg, 10/08/19 16:28:00... Start Date: 10/16/19 Status: Ordered SEROquel 25 mg oral tablet 50 mg, 2, tablet, By Mouth, 3 times a day, PRN, # 90 tablet, Refills 0, Tot. Refills 0, Maintenance, Anxiety, 10/16/19 10:29:00 EDT, Route to Pharmacy Electronically, [facility], 179, cm, 10/15/19 8:32:00 EDT, Height, 88.5, kg, 10/08/19... Start Date: 10/16/19 Status: Ordered Results Radiology Reports * Exam Date Time Procedure Performing Provider Status 10/08/19 1:07 PM Chest Portable Dona Li; Auth (Verified) Notes: (Chest Portable) Reason For Exam: Line/Tube Placement;Other: RESULT: Chest Portable Examination: Portable chest performed on 10/08/19. History: Line placement. Findings: A frontal view of the chest is submitted without comparison. No support apparatus is seen. The cardiac and mediastinal silhouettes are within normal limits. Thelungs are clear. The osseous and soft tissue structures are unremarkable. Impression: There is no acute cardiopulmonary disease. No support apparatus is seen. WSN: [id number] Ordering Physician: Gill Hill MD Dictated By: Desiree Wood MD Dictated Date/Time: 10/08/19 1:46 pm Reviewed By: Desiree Wood MD Signed By: Desiree Wood MD Signed Date/Time: 10/08/19 1:46 pm Transcribed By: KARY Transcribed Date/Time: 10/08/19 1:45 pm Vital Signs Most recent to oldest [Reference Range]: 1 2 3 Height 179 cm (10/15/19 7:00 AM) 179 cm (10/14/19 7:58 PM) 179 cm (10/14/19 7:00 AM) Weight 88.5 kg (10/08/19 3:36 PM) 85.5 kg (10/08/19 11:17 AM) 85.5 kg (10/08/19 6:31 AM) Oxygen Saturation [94-100 %] 100 % (10/16/19 7:00 AM) 99 % (10/15/19 7:00 PM) 100 % (10/15/19 7:00 AM) Pulse Rate [55-90 bpm] 66 bpm (10/16/19 7:00 AM) 34 bpm *L* (10/15/19 7:00 PM) 61 bpm (10/15/19 7:00 AM) Body Mass Index [18.5-24.99] 27.62 *H* (10/08/19 3:36 PM) Blood Pressure [90-138/55-84 mm Hg] 116/66mm Hg (10/16/19 7:00 AM) 104/56mm Hg (10/15/19 7:00 PM) 102/52mm Hg (10/15/19 7:00 AM) Respiratory Rate [16-30 br/min] 18 br/min (10/16/19 7:00 AM) 18 br/min (10/15/19 7:00 PM) 18 br/min (10/15/19 7:00 AM) Temperature [96.8-100.4 DegF] 98.2 DegF (10/16/19 7:00 AM) 97.8 DegF (10/15/19 7:00 PM) 97.7 DegF (10/15/19 7:00 AM) Mode of Delivery (Oxygen) Room air (10/15/19 7:00 PM) Nasal cannula (10/15/19 7:00 AM) Room air (10/14/19 7:58 PM) Blood pressure sites Arm, left (5/18/20 7:00 AM) Arm, left (10/15/19 7:00 PM) Arm, left (10/15/19 7:00 AM) Temperature Route Oral (10/16/19 7:00 AM) Oral (10/15/19 7:00 PM) Oral (10/15/19 7:00 AM) Dry Weight 88.5 kg (10/08/19 3:36 PM) 85.5 kg (10/08/19 11:17 AM) 85.5 kg (10/08/19 6:31 AM) Weight Obtained Via Standing scale (10/07/19 7:56 PM) Dry Weight Obtained Via Standing scale (10/07/19 7:56 PM)
[2022-12-31 22:15] VITALS: PULSE 84
[2022-12-31 22:27] LABS: MANUAL DIFF FLAG NO
[2022-12-31 22:29] LABS: Basophils Absolute Auto 0.1 X10*3/uL (0.0-0.2); Basophils Percent Auto 0.7 % (0-2); Eosinophils Absolute Auto 0.3 X10*3/uL (0.0-0.4); Eosinophils Percent Auto 3.7 % (0-4); Hematocrit 44.2 % (42.0-52.0); Hemoglobin 14.6 g/dl (14.0-18.0); Imm Gran Abs Auto 0.02 X10*3/uL (0.00-0.03); Imm Gran Pct Auto 0.2 % (0.0-0.4); Lymphocytes Absolute Auto 2.8 X10*3/uL (1.2-4.9); Lymphocytes Percent Auto 32.5 % (20-40); Mean Corpuscular Hemoglobin 30.9 pg (27.0-33.0); Mean Corpuscular Volume 93.4 fL (80.0-98.0); Mean Platelet Volume 8.5 fL (9.4-12.4); Monocytes Absolute Auto 0.3 X10*3/uL (0.1-1.2); Monocytes Percent Auto 3.7 % (2-11); Neutrophils Percent Auto 59.2 % (45-73); Platelet Count 368 X10*3/uL (160-400); Red Blood Count 4.73 X10*6/uL (4.60-5.80); White Blood Count 8.5 X10*3/uL (4.8-10.8)
[2022-12-31 22:31] LABS: Appearance Urine Clear; Color Urine Yellow; Glucose Urine UA Negative (Negative); Leukocyte Esterase Urine Negative (Negative); Nitrite Urine Negative (Negative); PH 5.5 (5.0-9.0); Specific Gravity - Urine <= 1.005 (1.005-1.025); Urine Blood Negative (Negative); Urine Ketones Negative (Negative); Urine Protein Negative (Neg-Trace)
[2022-12-31 22:50] LABS: Amphetamine Screen Urine Not Detected (Not Detect); Barbiturates, Urine Not Detected (Not Detect); Benzodiazepines Screen Urine Not Detected (Not Detect); Cannabinoid Screen Urine Not Detected (Not Detect); Cocaine Screen Urine Not Detected (Not Detect); Fentanyl, urine Not Detected (Not Detect); Opiate Screen Urine Not Detected (Not Detect); Phencyclidine Screen Urine Not Detected (Not Detect)
[2022-12-31 22:56] LABS: Alanine Aminotransferase 19 U/L (0-40); Albumin Level 4.2 g/dL (3.5-5.0); Alkaline Phosphatase 65 U/L (39-117); Anion Gap 16 (12-20); Aspartate Amino Transferase 18 U/L (5-37); Bilirubin Total 0.2 mg/dL (0.0-1.0); Blood Urea Nitrogen 7 mg/dL (9-16); Carbon Dioxide 22 mmol/L (22-29); Chloride 111 mmol/L (96-108); Creatinine Clr Calc Pharmacy 114.9; Estimated Glomerular Filt Rate > 60; Ethanol 357 mg/dL; Glucose Random 101 mg/dL (60-115); Potassium 3.4 mmol/L (3.3-5.1); Sodium 146 mmol/L (135-145); Total Protein 7.6 g/dL (6.5-8.0)
--- NOTE | 2022-12-31 23:38 | PC.NURSE ---
pt getting out of bed steady gait.
--- NOTE | 2022-12-31 23:50 | ED_ITS ---
HPI - Alcohol General Chief Complaint: ETOH/Substance Use Stated Complaint: ETOH Time Seen by Provider: 12/31/22 22:58 Source: patient Mode of arrival: EMS Limitations: no limitations History of Present Illness HPI narrative: patient history of alcohol abuse been to our ED multiple times after drinking alcohol today patient had 4 loco binge for last 3 days does report anxiety and depression denies SI walking around the ER and steady gait asking that he wants to go to detox or psych Related Data Home Medications Medication Instructions Recorded Confirmed fluoxetine 20 mg capsule 20 mg PO QAM 06/04/20 09/10/22 mirtazapine 15 mg tablet 15 mg PO BEDTIME 06/04/20 09/10/22 clonidine HCl 0.1 mg tablet 0.1 mg PO DAILY 06/17/20 09/10/22 Previous Rx's Medication Instructions Recorded clopidogrel 75 mg tablet 75 mg PO DAILY #30 tabs 06/07/20 quetiapine 300 mg tablet (Seroquel) 300 mg PO BEDTIME #90 tabs 12/10/20 quetiapine 50 mg tablet See Rx Instructions PO .COMPLEX 90 12/10/20 days #270 tabs rosuvastatin 20 mg tablet 20 mg PO DAILY 30 days #30 tabs 05/19/21 hydroxyzine pamoate 25 mg capsule 25 mg PO Q8H Anxiety 90 days #270 05/28/21 (Vistaril) caps albuterol sulfate 2.5 mg/3 mL 2.5 mg (3 mL) inhalation QID PRN 09/10/22 (0.083 %) solution for nebulization shortness of breath or wheezing #180 mL albuterol sulfate 90 mcg/actuation 2 puff inhalation Q6H PRN 09/10/22 aerosol inhaler (Ventolin HFA) shortness of breath or wheezing #8.5 grams aspirin 81 mg tablet,delayed 81 mg PO DAILY 90 days #90 tabs 09/10/22 release nebulizers (Aeroneb Go Nebulizer) #1 ea 09/10/22 sildenafil 100 mg tablet 100 mg PO DAILY PRN sexual 09/10/22 activity #14 tabs Allergies Allergy/AdvReac Type Severity Reaction Status Date / Time haloperidol [From HALDOL] Allergy Intermediate TONGUE Verified 09/10/22 08:34 SWELLING Review of Systems Review of Systems: Yes all other systems are reviewed and are negative PMFSH Past Medical History Medical History Alcoholism Anxiety Bipolar 1 disorder Carotid stenosis Clavicle fracture Depression H/O: HTN (hypertension) Hyperlipidemia Hypertensive cardiovascular disease Ischemic stroke Mood disorder Surgical History History of carotid endarterectomy History of surgical procedure Hx of hand surgery Hx of hand surgery Family History Family History Mother CVA (cerebral vascular accident) Maternal Grandmother Colon cancer Social History Social History Household Members: Other Housing: Apartment Do you presently have visiting nurse or other home services: No Alcohol intake: current Alcohol intake frequency: a few times a week Patient Tobacco Use Status: Current everyday Tobacco user Tobacco use type: Cigarette Cigarette Packs Per Day: 0 Cigarettes Per Day: 5 Years Smoked: 27 Smoked in Last 30 Days: Yes e-Cigarette/Vaping Use: Never Used Second Hand Smoke Exposure: Yes Use of substances other than those prescribed or required for medical reasons: No Advance Directives: No Advance Directives Information Provided: No service: No Current occupational status: employed Cognitive needs: No Hearing needs: No Vision needs: No Physical Exam ED Vital Signs: BMI result Body Mass Index 25.2 Appearance: Alert. Oriented X3. No acute distress. ETOH++ Eyes: PERRLA, No Nystagmus ENT: Pharynx normal. Oral Mucosa moist Neck: Normal inspection. Neck supple. CVS: Normal heart rate and rhythm. Pulses normal. Respiratory: No respiratory distress. Equal air entry bilateral, no wheezing/rales/rhonchi Abdomen: Soft and nontender. Bowel sounds are present, no mass palpable, no CVA tenderness Skin: Skin warm and dry. Normal skin color. Normal skin turgor. Extremities: No lower extremity edema. No calf tenderness Neuro: Oriented X 3. No motor deficit. No sensory deficit.No cerebellar signs , cranial nerves II-XII intact steady gait Medical Decision Making Medical Decision Making [facility] Narrative: patient with alcoholic intoxication walking in a steady gait discharge patient home advised to follow up with detox as outpt Lab Data [facility] Lab Attestation statement: I reviewed the patient's lab results. 12/31/22 22:16 12/31/22 22:16 Labs: Lab Results 12/31/22 12/31/22 12/31/22 Range/Units 22:16 22:16 22:16 WBC 8.5 (4.8-10.8) X10*3/uL RBC 4.73 (4.60-5.80) X10*6/uL Hgb 14.6 (14.0-18.0) g/dl Hct 44.2 (42.0-52.0) % MCV 93.4 (80.0-98.0) fL MCH 30.9 (27.0-33.0) pg MCHC 33.0 (31.0-36.0) g/dl RDW 13.0 (11.0-16.0) % Plt Count 368 (160-400) X10*3/uL MPV 8.5 L (9.4-12.4) fL Immature Gran % (Auto) 0.2 (0.0-0.4) % Neut % (Auto) 59.2 (45-73) % Lymph % (Auto) 32.5 (20-40) % [place] % (Auto) 3.7 (2-11) % Eos % (Auto) 3.7 (0-4) % Baso % (Auto) 0.7 (0-2) % Lymph # (Auto) 2.8 (1.2-4.9) X10*3/uL [place] # (Auto) 0.3 (0.1-1.2) X10*3/uL Eos # (Auto) 0.3 (0.0-0.4) X10*3/uL Baso # (Auto) 0.1 (0.0-0.2) X10*3/uL Abs Immat Gran (auto) 0.02 (0.00-0.03) X10*3/uL Absolute Neuts (auto) 5.0 (2.0-8.3) x10*3/uL Absolute Nucleated RBC 0.000 (0.0-0.012) X10*3/uL Nucleated RBC % (auto) 0.0 (0.0-0.2) /100WBC Sodium 146 H (135-145) mmol/L Potassium 3.4 D (3.3-5.1) mmol/L Chloride 111 H (96-108) mmol/L Carbon Dioxide 22 (22-29) mmol/L Anion Gap 16 (12-20) BUN 7 L (9-16) mg/dL Creatinine 0.81 (0.5-1.4) mg/dL Estim Creat Clear Calc 114.9 Estimated GFR > 60 Random Glucose 101 (60-115) mg/dL Calcium 9.0 (8.4-10.2) mg/dL Total Bilirubin 0.2 (0.0-1.0) mg/dL AST 18 (5-37) U/L ALT 19 (0-40) U/L Alkaline Phosphatase 65 (39-117) U/L Total Protein 7.6 (6.5-8.0) g/dL Albumin 4.2 (3.5-5.0) g/dL Urine Color Yellow Urine Appearance Clear Urine pH 5.5 (5.0-9.0) Ur Specific [place] <= 1.005 (1.005-1.025) Urine Protein Negative (Neg-Trace) mg/dL Urine Glucose (UA) Negative (Negative) mg/dL Urine Ketones Negative (Negative) mg/dL Urine Blood Negative (Negative) Urine Nitrite Negative (Negative) Ur Leukocyte Esterase Negative (Negative) Urine Opiates Screen (Not Detect) Urine Fentanyl Screen (Not Detect) Ur Barbiturates Screen (Not Detect) Ur Phencyclidine Scrn (Not Detect) Ur Amphetamines Screen (Not Detect) U Benzodiazepines Scrn (Not Detect) Urine Cocaine Screen (Not Detect) U Marijuana (THC) Screen (Not Detect) Ethyl Alcohol 357 H* mg/dL 12/31/22 Range/Units 22:16 WBC (4.8-10.8) X10*3/uL RBC (4.60-5.80) X10*6/uL Hgb (14.0-18.0) g/dl Hct (42.0-52.0) % MCV (80.0-98.0) fL MCH (27.0-33.0) pg MCHC (31.0-36.0) g/dl RDW (11.0-16.0) % Plt Count (160-400) X10*3/uL MPV (9.4-12.4) fL Immature Gran % (Auto) (0.0-0.4) % Neut % (Auto) (45-73) % Lymph % (Auto) (20-40) % [place] % (Auto) (2-11) % Eos % (Auto) (0-4) % Baso % (Auto) (0-2) % Lymph # (Auto) (1.2-4.9) X10*3/uL [place] # (Auto) (0.1-1.2) X10*3/uL Eos # (Auto) (0.0-0.4) X10*3/uL Baso # (Auto) (0.0-0.2) X10*3/uL Abs Immat Gran (auto) (0.00-0.03) X10*3/uL Absolute Neuts (auto) (2.0-8.3) x10*3/uL Absolute Nucleated RBC (0.0-0.012) X10*3/uL Nucleated RBC % (auto) (0.0-0.2) /100WBC Sodium (135-145) mmol/L Potassium (3.3-5.1) mmol/L Chloride (96-108) mmol/L Carbon Dioxide (22-29) mmol/L Anion Gap (12-20) BUN (9-16) mg/dL Creatinine (0.5-1.4) mg/dL Estim Creat Clear Calc Estimated GFR Random Glucose (60-115) mg/dL Calcium (8.4-10.2) mg/dL Total Bilirubin (0.0-1.0) mg/dL AST (5-37) U/L ALT (0-40) U/L Alkaline Phosphatase (39-117) U/L Total Protein (6.5-8.0) g/dL Albumin (3.5-5.0) g/dL Urine Color Urine Appearance Urine pH (5.0-9.0) Ur Specific [place] (1.005-1.025) Urine Protein (Neg-Trace) mg/dL Urine Glucose (UA) (Negative) mg/dL Urine Ketones (Negative) mg/dL Urine Blood (Negative) Urine Nitrite (Negative) Ur Leukocyte Esterase (Negative) Urine Opiates Screen Not Detected (Not Detect) Urine Fentanyl Screen Not Detected (Not Detect) Ur Barbiturates Screen Not Detected (Not Detect) Ur Phencyclidine Scrn Not Detected (Not Detect) Ur Amphetamines Screen Not Detected (Not Detect) U Benzodiazepines Scrn Not Detected (Not Detect) Urine Cocaine Screen Not Detected (Not Detect) U Marijuana (THC) Screen Not Detected (Not Detect) Ethyl Alcohol mg/dL Discharge Plan Discharge Clinical Impression: Alcoholic intoxication Patient Disposition: Home, Self-Care Instructions: Abuse of Alcohol (ED) Additional Instructions: follow-up with detox outpatient stop drinking alcohol Prescriptions: No Action quetiapine [Seroquel] 300 mg tablet 300 mg PO BEDTIME Qty: 90 1RF quetiapine 50 mg tablet See Rx Instructions PO .COMPLEX 90 Days Qty: 270 1RF Rx Instructions: 2 tabs in am and 1 at pm with 300 mg Q pm PO; rosuvastatin 20 mg tablet 20 mg PO DAILY 30 Days Qty: 30 3RF hydroxyzine pamoate [Vistaril] 25 mg capsule 25 mg PO Q8H 90 Days Qty: 270 0RF mirtazapine 15 mg tablet 15 mg PO BEDTIME fluoxetine 20 mg capsule 20 mg PO QAM clopidogrel 75 mg Tablet 75 mg PO DAILY Qty: 30 0RF clonidine HCl 0.1 mg tablet 0.1 mg PO DAILY albuterol sulfate [Ventolin HFA] 90 mcg/actuation HFA aerosol inhaler 2 puff inhalation Q6H PRN (Reason: shortness of breath or wheezing) Qty: 8.5 0RF albuterol sulfate 2.5 mg /3 mL (0.083 %) solution for nebulization 2.5 mg inhalation QID PRN (Reason: shortness of breath or wheezing) Qty: 180 0RF aspirin 81 mg tablet,delayed release (DR/EC) 81 mg PO DAILY 90 Days Qty: 90 3RF (DME) Aeroneb Go Nebulizer Misc See Rx Instructions .Route Qty: 1 0RF Rx Instructions: As directed sildenafil 100 mg tablet 100 mg PO DAILY PRN (Reason: sexual activity) Qty: 14 2RF Rx Instructions: administer 30 minutes to 4 hours before activity Interventions: ED Discharge Assessment Last Done: 01/01/23 00:09
--- NOTE | 2023-01-01 00:07 | PC.NURSE ---
Pt continues to get out of ED stretcher. Walking behind nurses station, redirected back to stretcher, Security to bedside for executive discharge.
[2023-01-01 00:08] VITALS: BP 133/87; PULSE 95; RESP 19; O2SAT 97
== END 2023-01-01 00:09 | disposition home or self-care (01) ==
PROVIDERS: Emergency Provider Internal Medicine; PCP Internal Medicine
DX: F10.129 Alcohol abuse with intoxication, unspecified (principal); Y90.8 Blood alcohol level of 240 mg/100 ml or more; F17.210 Nicotine dependence, cigarettes, uncomplicated; Z71.6 Tobacco abuse counseling; Z79.899 Other long term (current) drug therapy
CPT/HCPCS: 36415; 80053; 80307; 81003; 85025; 99285

== ENCOUNTER 2023-01-01 02:28 | Emergency (ER) | payer OTHER, SELFPAY ==
[2023-01-01 02:34] VITALS: BP 138/80; PULSE 89; O2SAT 99
[2023-01-01 02:40] VITALS: BP 133/79; PULSE 88; RESP 16; TEMP 36.6; O2SAT 98; BMI 23.0
[2023-01-01] MEDS: QUEtiapine Fumarate 400 MG TABLET 350 MG PO (03:13)
--- NOTE | 2023-01-01 03:13 | MHC.EDTECH ---
Patient arrived by ambulance,security at bedside. Patient was changed into hospital attire,belongings list completed and locked in locker #9.
[2023-01-01 06:44] VITALS: BP 103/60; PULSE 96; RESP 18; TEMP 36.3; O2SAT 96
--- NOTE | 2023-01-01 06:44 | MHC.EDTECH ---
Hourly rounds completed,vitals taken and pt is resting comfortably at this time.
--- NOTE | 2023-01-01 06:53 | ED_ITS ---
HPI - Alcohol General Chief Complaint: ETOH/Substance Use Stated Complaint: bipolar, unmedicated Time Seen by Provider: 01/01/23 02:40 Source: patient and EMS Mode of arrival: EMS Limitations: no limitations History of Present Illness HPI narrative: 52-year-old male with history of alcohol abuse, patient has frequent ED visits after drinking alcohol, patient was here earlier in the emergency department and was discharged home patient when he got home he drank more alcohol than call 911 and return to the emergency department patient now feel suicidal and depressed. Declined using any recreational drugs today. Related Data Home Medications Medication Instructions Recorded Confirmed fluoxetine 20 mg capsule 20 mg PO QAM 06/04/20 09/10/22 mirtazapine 15 mg tablet 15 mg PO BEDTIME 06/04/20 09/10/22 clonidine HCl 0.1 mg tablet 0.1 mg PO DAILY 06/17/20 09/10/22 Previous Rx's Medication Instructions Recorded clopidogrel 75 mg tablet 75 mg PO DAILY #30 tabs 06/07/20 quetiapine 300 mg tablet (Seroquel) 300 mg PO BEDTIME #90 tabs 12/10/20 quetiapine 50 mg tablet See Rx Instructions PO .COMPLEX 90 12/10/20 days #270 tabs rosuvastatin 20 mg tablet 20 mg PO DAILY 30 days #30 tabs 05/19/21 hydroxyzine pamoate 25 mg capsule 25 mg PO Q8H Anxiety 90 days #270 05/28/21 (Vistaril) caps albuterol sulfate 2.5 mg/3 mL 2.5 mg (3 mL) inhalation QID PRN 09/10/22 (0.083 %) solution for nebulization shortness of breath or wheezing #180 mL albuterol sulfate 90 mcg/actuation 2 puff inhalation Q6H PRN 09/10/22 aerosol inhaler (Ventolin HFA) shortness of breath or wheezing #8.5 grams aspirin 81 mg tablet,delayed 81 mg PO DAILY 90 days #90 tabs 09/10/22 release nebulizers (Aeroneb Go Nebulizer) #1 ea 09/10/22 sildenafil 100 mg tablet 100 mg PO DAILY PRN sexual 09/10/22 activity #14 tabs Allergies Allergy/AdvReac Type Severity Reaction Status Date / Time haloperidol [From HALDOL] Allergy Intermediate TONGUE Verified 01/01/23 02:40 SWELLING Review of Systems Review of Systems: Yes all other systems are reviewed and are negative [facility] Past Medical History Medical History Alcoholism Anxiety Bipolar 1 disorder Carotid stenosis Clavicle fracture Depression H/O: HTN (hypertension) Hyperlipidemia Hypertensive cardiovascular disease Ischemic stroke Mood disorder Surgical History History of carotid endarterectomy History of surgical procedure Hx of hand surgery Hx of hand surgery Family History Family History Mother CVA (cerebral vascular accident) Maternal Grandmother Colon cancer Social History Social History Household Members: Other Housing: Apartment Do you presently have visiting nurse or other home services: No Alcohol intake: current Alcohol intake frequency: a few times a week Patient Tobacco Use Status: Current everyday Tobacco user Tobacco use type: Cigarette Cigarette Packs Per Day: 0 Cigarettes Per Day: 5 Years Smoked: 27 e-Cigarette/Vaping Use: Never Used Second Hand Smoke Exposure: Yes Advance Directives: No Advance Directives Information Provided: Yes service: No Current occupational status: employed Cognitive needs: No Hearing needs: No Vision needs: No Physical Exam ED Vital Signs: Vital Signs - 24 hr 01/01/23 02:40 01/01/23 06:44 Temperature 98 F 97.4 F Pulse Rate 88 96 Respiratory Rate 16 18 Blood Pressure 133/79 103/60 Pulse Oximetry 98 96 Oxygen Delivery Method Room Air Room Air BMI result Body Mass Index 23.0 Vital signs have been reviewed as appeared to be correct. Blood pressure normal. Heart rate normal. Respiration rate normal. Temperature normal. Oxygen saturation normal. Appearance: Alert. Oriented, alcohol on breath. No acute distress. Head: Normal external exam. Normocephalic. Atraumatic. No Nielsen signs noted. No raccoon eyes noted Eyes: PERRLA. EOMI. Conjunctiva and sclera normal. Eyelids normal. ENT: TM's Normal. Pharynx normal. Uvula midline. Moist mucous membranes. No trismus noted. No drooling noted. No muffled voice noted. Neck: Normal inspection. Neck supple. FROM. No adenopathy. Thyroid Normal. No meningeal signs. No neck mass noted. CVS: Normal heart rate and rhythm. Heart sound normal. No murmurs noted. Pulses normal throughout. Respiratory: No respiratory distress. Painless inspiration. Breath sounds normal. No wheezes/rales/rhonchi noted. Chest nontender. No accessory muscle usage noted or decreased air movement noted. Abdomen: Soft and nontender. Bowel sounds normal in all 4 quadrants. No distention noted. No organomegaly noted. No visible injury noted. Back: No CVA tenderness. Full range of motion noted. Skin: Skin warm and dry. Normal skin color. Normal skin turgor. No rashes/lesions/lacerations noted. Extremities: No lower extremity edema. Extremities exhibit normal range of motion. Extremities nontender. Neuro: Intoxicated. Cranial nerve exam: II-XII are grossly intact No motor deficit. No sensory deficit. Reflexes normal. Course Course Course Narrative: 6:00; Alcohol intoxication, depression, now feeling suicidal. Will have Care team evaluation when patient is sober. Start the patient on physician observation. Medical Decision Making Differential Diagnosis Differential Diagnoses: The differential diagnosis associated with the presentation includes (Alcohol intoxication, depression, SI, hallucination.) Admission/Observation Consideration of admission/observation: Escalation of care including admission/observation considered Medications Administered Discontinued Medications Generic Name Dose Route Start Last Admin Trade Name Tamara PRN Reason Stop Dose Admin Quetiapine Fumarate 350 mg 01/01/23 02:40 01/01/23 03:13 Quetiapine Fumarate 400 Mg Tablet PO 01/01/23 02:41 350 mg ONCE ONE Administration Discharge Plan Discharge Clinical Impression: Alcohol intoxication Patient Disposition: Still a Patient Prescriptions: No Action quetiapine [Seroquel] 300 mg tablet 300 mg PO BEDTIME Qty: 90 1RF quetiapine 50 mg tablet See Rx Instructions PO .COMPLEX 90 Days Qty: 270 1RF Rx Instructions: 2 tabs in am and 1 at pm with 300 mg Q pm PO; rosuvastatin 20 mg tablet 20 mg PO DAILY 30 Days Qty: 30 3RF hydroxyzine pamoate [Vistaril] 25 mg capsule 25 mg PO Q8H 90 Days Qty: 270 0RF mirtazapine 15 mg tablet 15 mg PO BEDTIME fluoxetine 20 mg capsule 20 mg PO QAM clopidogrel 75 mg Tablet 75 mg PO DAILY Qty: 30 0RF clonidine HCl 0.1 mg tablet 0.1 mg PO DAILY albuterol sulfate [Ventolin HFA] 90 mcg/actuation HFA aerosol inhaler 2 puff inhalation Q6H PRN (Reason: shortness of breath or wheezing) Qty: 8.5 0RF albuterol sulfate 2.5 mg /3 mL (0.083 %) solution for nebulization 2.5 mg inhalation QID PRN (Reason: shortness of breath or wheezing) Qty: 180 0RF aspirin 81 mg tablet,delayed release (DR/EC) 81 mg PO DAILY 90 Days Qty: 90 3RF (DME) Aeroneb Go Nebulizer Misc See Rx Instructions .Route Qty: 1 0RF Rx Instructions: As directed sildenafil 100 mg tablet 100 mg PO DAILY PRN (Reason: sexual activity) Qty: 14 2RF Rx Instructions: administer 30 minutes to 4 hours before activity
[2023-01-01 08:01] LABS: MANUAL DIFF FLAG NO
[2023-01-01 08:02] LABS: Basophils Percent Auto 0.5 % (0-2); Eosinophils Absolute Auto 0.3 X10*3/uL (0.0-0.4); Eosinophils Percent Auto 4.3 % (0-4); Hematocrit 40.5 % (42.0-52.0); Hemoglobin 13.5 g/dl (14.0-18.0); Imm Gran Abs Auto 0.02 X10*3/uL (0.00-0.03); Imm Gran Pct Auto 0.3 % (0.0-0.4); Lymphocytes Absolute Auto 3.2 X10*3/uL (1.2-4.9); Lymphocytes Percent Auto 42.2 % (20-40); Mean Corpuscular HGB Conc 33.3 g/dl (31.0-36.0); Mean Corpuscular Hemoglobin 30.8 pg (27.0-33.0); Mean Corpuscular Volume 92.3 fL (80.0-98.0); Mean Platelet Volume 8.5 fL (9.4-12.4); Monocytes Absolute Auto 0.4 X10*3/uL (0.1-1.2); Monocytes Percent Auto 5.8 % (2-11); Neutrophils Absolute Auto 3.6 x10*3/uL (2.0-8.3); Neutrophils Percent Auto 46.9 % (45-73); Platelet Count 313 X10*3/uL (160-400); Red Blood Count 4.39 X10*6/uL (4.60-5.80); Red Cell Distribution Width 13.3 % (11.0-16.0); White Blood Count 7.6 X10*3/uL (4.8-10.8)
[2023-01-01 08:20] LABS: Ethanol 146 mg/dL
[2023-01-01 08:21] LABS: Anion Gap 15 (12-20); Blood Urea Nitrogen 8 mg/dL (9-16); Calcium 8.3 mg/dL (8.4-10.2); Carbon Dioxide 21 mmol/L (22-29); Chloride 110 mmol/L (96-108); Creatinine Clr Calc Pharmacy 126.7; Estimated Glomerular Filt Rate > 60; Glucose Random 75 mg/dL (60-115); Potassium 3.5 mmol/L (3.3-5.1); Sodium 142 mmol/L (135-145)
[2023-01-01 10:29] VITALS: BP 91/49; PULSE 78; RESP 16; O2SAT 96
--- NOTE | 2023-01-01 10:30 | PC.NURSE ---
Hypotensive, will established IV and admin fluids per Alan CAIN. Pt asymptomatic, denies pain. CIWA 0
[2023-01-01] MEDS: 0.9 % Sodium Chloride 1,000 ML 999 ML IVCONT ×2 (11:30)
[2023-01-01 12:23] VITALS: BP 119/60; PULSE 84; RESP 16
[2023-01-01 14:15] LABS: Appearance Urine Clear; Color Urine Yellow; Glucose Urine UA Negative (Negative); Leukocyte Esterase Urine Negative (Negative); Nitrite Urine Negative (Negative); Urine Blood Negative (Negative); Urine Ketones Negative (Negative); Urine Protein Negative (Neg-Trace)
[2023-01-01 14:17] LABS: Amphetamine Screen Urine Not Detected (Not Detect); Barbiturates, Urine Not Detected (Not Detect); Benzodiazepines Screen Urine Not Detected (Not Detect); Cannabinoid Screen Urine Not Detected (Not Detect); Cocaine Screen Urine POSITIVE (Not Detect); Fentanyl, urine Not Detected (Not Detect); Opiate Screen Urine Not Detected (Not Detect); Phencyclidine Screen Urine Not Detected (Not Detect)
--- NOTE | 2023-01-01 15:31 | PC.NURSE ---
care team to bedside.
--- NOTE | 2023-01-01 21:30 | MHC.RECOVSUP ---
? Reason for consult:ETOH o? Current location:ED22[facility]? o? Identified substance use concern:? -? Support ? Intervention: o? Community resources provided ? Plan:Respite ? Additional information:RC met with this pt and discussed treatment options, pt is going to respite tomorrow and wants to try outpatient services before agreeing to inpatient treatment. RC provided recovery resources.
[2023-01-01 22:00] VITALS: BP 156/76; PULSE 75; RESP 18; O2SAT 98
--- NOTE | 2023-01-01 23:54 | PC.NURSE ---
late entry: this mortgage loan underwriter assumed care at 1900, pt A&Ox3, calm and cooperative, reports pain 7/10 in his back. Reports SI with thoughts of attempt to use knives to hurt self. Pt states prior attempts within less than a month ago, no exact date recalled. Denies HI, denies auditory and visual hallucinations. Pt ambulated to bathroom with a steady gait. Ate a sandwich and drank gingerale. . Pt will be transporter to the pod. Report given to [facility] [place]
[2023-01-02] MEDS: QUEtiapine Fumarate 300 MG TABLET PO ×2 (01:10→20:16)
[2023-01-02 06:09] VITALS: RESP 18
--- NOTE | 2023-01-02 14:56 | PHA.MEDREC ---
Pharmacy Consult ? Medication Reconciliation Pharmacy has completed the medication reconciliation. spoke with patient to confirm medications. Clopidogrel and rosuvastatin are not in claim history however patient says he takes them and they are from his procedure. He says he has not taken any of his home medications in about 1 week.
[2023-01-02] MEDS: cloNIDine HCL 0.1 MG TABLET PO (15:45)
[2023-01-02] MEDS: Aspirin Enteric Coated 81 MG TABLET.DR PO (15:45)
[2023-01-02] MEDS: QUEtiapine Fumarate 50 MG TABLET 100 MG PO (15:45)
[2023-01-02] MEDS: FLUoxetine HCl 20 MG CAPSULE PO (15:46)
[2023-01-02] MEDS: hydrOXYzine HCL 25 MG TABLET PO ×2 (15:46→20:17)
[2023-01-02] MEDS: Clopidogrel Bisulfate 75 MG TABLET PO (15:46)
[2023-01-02 16:13] VITALS: BP 115/62; PULSE 64; RESP 16; TEMP 36.7; O2SAT 98
[2023-01-03 06:00] VITALS: RESP 16
--- NOTE | 2023-01-03 06:35 | PC.NURSE ---
Patient slept through the night, no distress observed/reported, behavior non concerning, labs completed/resulted, medication compliant, disposition per care team is Respite bed search, no update thus far, VSS, asymptomatic of ETOH withdrawal, will continue to monitor.
[2023-01-03] MEDS: QUEtiapine Fumarate 50 MG TABLET 100 MG PO (10:32)
[2023-01-03] MEDS: Clopidogrel Bisulfate 75 MG TABLET PO (10:32)
[2023-01-03] MEDS: Atorvastatin Calcium 80 MG TABLET PO (10:32)
[2023-01-03] MEDS: Aspirin Enteric Coated 81 MG TABLET.DR PO (10:33)
[2023-01-03] MEDS: cloNIDine HCL 0.1 MG TABLET PO (10:33)
[2023-01-03] MEDS: FLUoxetine HCl 20 MG CAPSULE PO (10:33)
[2023-01-03 10:39] VITALS: BP 118/61; PULSE 62; RESP 16; TEMP 36.3; O2SAT 98
--- NOTE | 2023-01-03 12:49 | PC.NURSE ---
Cl has spent much of the day resting in bed. Compliant with medications and verbalized that he felt like he was more stable then when he came in as he has been taking medications since arriving. Appetite is good and Cl is denying any SI/HI/AVH. Cl has had several phone calls with family and reports those have been positive. Staff will continue to monitor.
[2023-01-03 14:21] VITALS: BP 105/52; PULSE 59; RESP 16; TEMP 36.3; O2SAT 97
== END 2023-01-03 14:52 | disposition home or self-care (01) ==
PROVIDERS: Emergency Medicine; Emergency Provider Emergency Medicine
DX: F10.120 Alcohol abuse with intoxication, uncomplicated (principal); Y90.6 Blood alcohol level of 120-199 mg/100 ml; F31.9 Bipolar disorder, unspecified; F41.9 Anxiety disorder, unspecified; I10 Essential (primary) hypertension; E78.5 Hyperlipidemia, unspecified; Z86.73 Personal history of transient ischemic attack (TIA), and cerebral infarction without residual deficits; F17.210 Nicotine dependence, cigarettes, uncomplicated
CPT/HCPCS: 36415; 80048; 80307; 81003; 85025; 96360; 99285; S9485

== ENCOUNTER 2023-01-14 01:43 | Emergency (ER) | payer OTHER, SELFPAY ==
--- NOTE | ~2023-01-14 | CT_ITS ---
EXAMINATION: CT HEAD WITHOUT CONTRAST CLINICAL INFORMATION: Dizziness, headache, CVA history. COMPARISON: 06/04/[address] scan. TECHNIQUE: Contiguous axial imaging was performed from the skull base to vertex without intravenous administration of contrast. Coronal and sagittal reformatted images were obtained. This CT examination was performed using dose optimization techniques as appropriate, variously including the following: *Automated exposure control *Adjustment of mA and/or kV according to patient size (this includes techniques or standardized protocols for targeted exams where dose is matched to indication/reason for exam; i.e. extremities or head) *Use of iterative reconstruction technique DLP: 627 mGy-cm FINDINGS: The cortical sulci are normal. The lateral ventricles are symmetrical. The third and fourth ventricles are in their normal midline position. The basilar and prepontine cisterns are unremarkable. There is no acute intra or extracerebral abnormality. There is no mass effect or midline shift. Sections through the bony calvarium are unremarkable. The paranasal sinuses show mild to moderate mucosal thickening most pronounced in the right maxillary sinus. The right maxillary antrostomy is patent. No air-fluid levels. The bony orbits and orbital contents are unremarkable. Mild to moderate mid nasal septal deviation, apex to the right with small apical spur. The mastoid air cells are clear. CT/CT head/brain wo IV con IMPRESSION: No acute intracranial pathology.
[2023-01-14 01:46] VITALS: BP 132/78; PULSE 100; O2SAT 98
[2023-01-14 01:57] VITALS: BP 128/63; PULSE 96; RESP 18; TEMP 37.2; O2SAT 94; BMI 24.7
[2023-01-14 04:50] VITALS: BP 119/64; PULSE 88; RESP 18; TEMP 36.7; O2SAT 97
--- NOTE | 2023-01-14 06:55 | ED.GENADULT ---
HPI - General Adult General Chief complaint: ETOH/Substance Use Stated complaint: etoh Time Seen by Provider: 01/14/23 06:55 Source: patient and EMS Mode of arrival: EMS Limitations: no limitations History of Present Illness HPI narrative: Patient is a 52 year old assigned male at with a history of alcohol use and CVA presenting to the emergency department today after becoming intoxicated. Patient states that he got intoxicated, went to the police station, and they brought him here. Patient states that he has not been taking his medications and is concerned he has a blockage in his head. Patient denies any headache, dizziness, lightheadedness, abdominal pain, nausea, vomiting, fever, chills, blurry vision, double vision, loss of vision, chest pain, difficulty breathing, shortness of breath, back pain, night sweats, pain with urination, increased urinary frequency, increased urinary urgency, blood in his urine or stool, syncope or a near syncopal episode, recent trauma or falls, bowel incontinence, bladder incontinence, bowel retention, bladder retention, or any other complaints at this time. Relieving factors: none Exacerbating factors: none Associated symptoms: denies other symptoms Treatments prior to arrival: none Related Data Home Medications Medication Instructions Recorded Confirmed fluoxetine 20 mg capsule 20 mg PO QAM 06/04/20 01/01/23 clonidine HCl 0.1 mg tablet 0.1 mg PO DAILY 06/17/20 01/01/23 quetiapine 50 mg tablet 50 mg PO BEDTIME 01/02/23 01/02/23 quetiapine 50 mg tablet 100 mg PO QAM 01/02/23 01/02/23 Previous Rx's Medication Instructions Recorded clopidogrel 75 mg tablet 75 mg PO DAILY #30 tabs 06/07/20 quetiapine 300 mg tablet (Seroquel) 300 mg PO BEDTIME #90 tabs 12/10/20 rosuvastatin 20 mg tablet 20 mg PO DAILY 30 days #30 tabs 05/19/21 hydroxyzine pamoate 25 mg capsule 25 mg PO Q8H Anxiety 90 days #270 05/28/21 (Vistaril) caps albuterol sulfate 2.5 mg/3 mL 2.5 mg (3 mL) inhalation QID PRN 09/10/22 (0.083 %) solution for nebulization shortness of breath or wheezing #180 mL albuterol sulfate 90 mcg/actuation 2 puff inhalation Q6H PRN 09/10/22 aerosol inhaler (Ventolin HFA) shortness of breath or wheezing #8.5 grams aspirin 81 mg tablet,delayed 81 mg PO DAILY 90 days #90 tabs 09/10/22 release sildenafil 100 mg tablet 100 mg PO DAILY PRN sexual 09/10/22 activity #14 tabs clonidine HCl 0.1 mg tablet 0.1 mg PO DAILY #30 tabs 01/03/23 fluoxetine 20 mg capsule 20 mg PO DAILY #30 caps 01/03/23 mirtazapine 15 mg tablet 15 mg PO BEDTIME #30 tabs 01/03/23 Allergies Allergy/AdvReac Type Severity Reaction Status Date / Time haloperidol [From HALDOL] Allergy Intermediate TONGUE Verified 01/01/23 02:40 SWELLING Review of Systems Constitutional: Constitutional: Reports no additional constitutional complaints, Denies chills, Denies fever(s) and Denies night sweats Eyes: Eyes: Reports no additional eye complaints, Denies blurry vision, Denies change in vision, Denies diplopia, Denies eye discharge, Denies loss of vision and Denies eye pain ENT: Denies dizziness Cardiovascular: Cardiovascular: Reports no additional cardiovascular complaints, Denies chest pain, Denies lightheadedness, Denies Loss of Consciousness and Denies dyspnea Respiratory: Respiratory: Reports no additional respiratory complaints and Denies dyspnea Gastrointestinal: Gastrointestinal: Reports no additional gastrointestinal complaints, Denies abdominal pain, Denies melena, Denies hematochezia, Denies change in bowel habits and Denies change in stool character Genitourinary: Genitourinary: Reports no additional male genitourinary complaints, Denies hematuria, Denies oliguria, Denies difficulty urinating, Denies dysuria, Denies urinary frequency, Denies urinary hesitancy, Denies urinary incontinence and Denies urinary urgency Musculoskeletal: Musculoskeletal: Reports no additional musculoskeletal complaints, Denies numbness and Denies tingling Neurologic: Denies dizziness, Denies loss of vision, Denies numbness and Denies tingling Psychiatric: Psychiatric: Reports no additional psychiatric complaints Endocrine: Endocrine: Reports no additional endocrine complaints Hematologic/Lymphatic: Hematologic/Lymphatic: Reports no additional hematologic/lymphatic complaints Allergic/Immunologic: Allergic/Immunologic: Reports no additional allergic/immunologic complaints PMFSH Past Medical History Attestation statement: The following information was validated with the patient. Source: old records reviewed and nursing notes reviewed Medical History Alcoholism Annual physical exam Anxiety Bipolar 1 disorder Carotid stenosis Clavicle fracture Colon cancer screening Depression H/O: HTN (hypertension) Hyperlipidemia Hypertensive cardiovascular disease Ischemic stroke Mood disorder Overweight Surgical History History of carotid endarterectomy History of surgical procedure Hx of hand surgery Hx of hand surgery Family History Family History Mother CVA (cerebral vascular accident) Maternal Grandmother Colon cancer Social History Social History Household Members: Other Housing: Apartment Do you presently have visiting nurse or other home services: No Alcohol intake: current Alcohol intake frequency: a few times a week Patient Tobacco Use Status: Current everyday Tobacco user Tobacco use type: Cigarette Cigarette Packs Per Day: 0 Cigarettes Per Day: 5 Years Smoked: 27 e-Cigarette/Vaping Use: Never Used Second Hand Smoke Exposure: Yes Advance Directives: No Advance Directives Information Provided: No service: No Current occupational status: employed Cognitive needs: No Hearing needs: No Vision needs: No Physical Exam ED Vital Signs: Vital Signs - 24 hr 01/14/23 01:57 01/14/23 04:50 01/14/23 07:32 Temperature 98.9 F 98.1 F 98.2 F Pulse Rate 96 88 80 Respiratory Rate 18 18 18 Blood Pressure 128/63 119/64 123/68 Pulse Oximetry 94 97 98 Oxygen Delivery Method Room Air Room Air Room Air BMI result Body Mass Index 24.7 Const General: cooperative, no acute distress, alert and awake Nutritional Appearance: well nourished Orientation/consciousness: patient oriented x3 Limitations: no limitations HENMT Head: Yes normal to inspection and Yes atraumatic Ears: hearing grossly normal bilaterally and external ears normal General nose exam: Normal external nose present, no nasal discharge noted and no epistaxis Face and sinus: Yes normal facial exam, No abrasion and No laceration Mouth: Normal oral and palatal mucosa present, no drooling and no muffled voice Eyes General: appearance normal, both eyes and all related structures Periorbital: periorbital findings normal Eyelids: Yes eyelids normal Conjunctivae: conjunctivae normal Pupils: Equal, round and reactive pupils present EOM: EOMs intact bilaterally Neck Neck: Yes normal visual inspection, Yes full ROM and Yes no lymphadenopathy Chest Chest palpation & inspection: normal inspection of the chest Resp Effort & Inspection: normal respiratory effort and able to speak in complete sentences Auscultation: clear to auscultation bilaterally Cardio Rate: regular rate Rhythm: regular rhythm GI Inspection: Yes normal to inspection Neuro General: patient oriented x3 and moves all extremities Cranial nerves: Yes Equal, round and reactive pupils present Cognition (Neuro): normal cognition Motor exam (neuro): 5/5 motor strength present throughout Sensory Exam: Normal double simultaneous stimulation for sensation Coordination: [id number] test normal Extrem General: Yes normal to inspection, Yes full ROM and Yes capillary refill normal Psych Appearance: grossly normal Mental Status: mental status grossly normal Affect: normal affect Attitude: cooperative Thought process: Normal thought process present Thought content: Normal thought content present Insight: Good insight present (Psych) Medical Decision Making Medical Decision Making MDM Narrative: Patient is a 52 year old assigned male at with a history of CVA and alcohol use presenting to the emergency department today with alcohol intoxication and concern for a clog in his head . Patient's physical exam was unremarkable. Patient's blood work showed a mildly elevated WBC count of 13.5 which I attribute to a stress reaction. The rest of the patient's lab results are grossly normal. Patient's head CT showed no acute process. I explained my physical exam findings as well as all test results to the patient. I answered all questions asked by the patient. I stressed the importance of the patient taking his medication as prescribed. I stressed the importance of the patient following up with his primary care provider. I stressed the importance of the patient returning to the emergency department immediately if his symptoms were to worsen or if he were to develop any dizziness, shortness of breath, difficulty breathing, chest pain, blurry vision, loss of vision, nausea, vomiting, abdominal pain, fever, chills, back pain, or any other complaints. Patient verbalized agreement and understanding with this treatment plan and discharge. Differential Diagnosis Differential Diagnoses: The differential diagnosis associated with the presentation includes Intoxication Alcohol use Admission/Observation Consideration of admission/observation: Escalation of care including admission/observation considered Patient would have been admitted to the hospital had his work up had any findings where hospital admission was appropriate and his clinical presentation warranted hospital admission. Lab Data [facility] Lab Attestation statement: I reviewed the patient's lab results. My interpretation of these results are in the MDM portion of this note. 01/14/23 07:42 01/14/23 07:42 Labs: Lab Results 01/14/23 01/14/23 Range/Units 07:42 07:42 WBC 13.5 H (4.8-10.8) X10*3/uL RBC 4.68 (4.60-5.80) X10*6/uL Hgb 14.5 (14.0-18.0) g/dl Hct 42.9 (42.0-52.0) % MCV 91.7 (80.0-98.0) fL MCH 31.0 (27.0-33.0) pg MCHC 33.8 (31.0-36.0) g/dl RDW 13.0 (11.0-16.0) % Plt Count 351 (160-400) X10*3/uL MPV 8.7 L (9.4-12.4) fL Immature Gran % (Auto) 0.3 (0.0-0.4) % Neut % (Auto) 62.8 (45-73) % Lymph % (Auto) 27.6 (20-40) % Mar[place]osa % (Auto) 5.2 (2-11) % Eos % (Auto) 3.5 (0-4) % Baso % (Auto) 0.6 (0-2) % Lymph # (Auto) 3.7 (1.2-4.9) X10*3/uL [place] # (Auto) 0.7 (0.1-1.2) X10*3/uL Eos # (Auto) 0.5 H (0.0-0.4) X10*3/uL Baso # (Auto) 0.1 (0.0-0.2) X10*3/uL Abs Immat Gran (auto) 0.04 H (0.00-0.03) X10*3/uL Absolute Neuts (auto) 8.5 H (2.0-8.3) x10*3/uL Absolute Nucleated RBC 0.000 (0.0-0.012) X10*3/uL Nucleated RBC % (auto) 0.0 (0.0-0.2) /100WBC Sodium 142 (135-145) mmol/L Potassium 3.8 (3.3-5.1) mmol/L Chloride 109 H (96-108) mmol/L Carbon Dioxide 22 (22-29) mmol/L Anion Gap 15 (12-20) BUN 9 (9-16) mg/dL Creatinine 0.84 (0.5-1.4) mg/dL Estim Creat Clear Calc 110.8 Estimated GFR > 60 Random Glucose 80 (60-115) mg/dL Calcium 8.8 D (8.4-10.2) mg/dL Magnesium 2.2 (1.6-2.6) mg/dL Total Bilirubin 0.3 (0.0-1.0) mg/dL AST 30 (5-37) U/L ALT 47 H (0-40) U/L Alkaline Phosphatase 72 (39-117) U/L Total Protein 7.9 (6.5-8.0) g/dL Albumin 4.4 (3.5-5.0) g/dL Independent Interpretation I performed an independent interpretation of an: CT Scan Interpretation: My interpretation is in agreement with the radiologist's impression of this imaging study. EXAMINATION: CT HEAD WITHOUT CONTRAST CLINICAL INFORMATION: Dizziness, headache, CVA history.? COMPARISON: 06/04/[address] scan. TECHNIQUE: Contiguous axial imaging was performed from the skull base to vertex without intravenous administration of contrast. Coronal and sagittal reformatted images were obtained. This CT examination was performed using dose optimization techniques as appropriate, variously including the following: *Automated exposure control *Adjustment of mA and/or kV according to patient size (this includes techniques or standardized protocols for targeted exams where dose is matched to indication/reason for exam; i.e. extremities or head) *Use of iterative reconstruction technique DLP: 627 mGy-cm FINDINGS: The cortical sulci are normal. The lateral ventricles are symmetrical. The third and fourth ventricles are in their normal midline position. The basilar and prepontine cisterns are unremarkable. There is no acute intra or extracerebral abnormality. There is no mass effect or midline shift. Sections through the bony calvarium are unremarkable. The paranasal sinuses show mild to moderate mucosal thickening most pronounced in the right maxillary sinus. The right maxillary antrostomy is patent. No air-fluid levels. The bony orbits and orbital contents are unremarkable. Mild to moderate mid nasal septal deviation, apex to the right with small apical spur. The mastoid air cells are clear. CT/CT head/brain wo IV con IMPRESSION: No acute intracranial pathology. Dictated By: Melo Alston MD Signed By: Electronically signed by Melo Alston MD 01/14/23 0848 Radiology Impression Discussion of test interpretation with radiology: I have reviewed the radiologist's reading. Independent Historian Clinical information obtained from an independent historian. History obtained from or confirmed by: EMS (EMS provided additional history and confirmed the history provided by the patient.) Chronic Conditions Patient?s care impacted by: Other (CVA, alcohol abuse) Discharge Plan Discharge Clinical Impression: Alcohol intoxication Patient Disposition: Home, Self-Care Instructions: Alcohol Intoxication (ED) Additional Instructions: Take your medications as prescribed. Follow up with your primary care provider. Return to the emergency department immediately if your symptoms worsen or if you develop any dizziness, shortness of breath, difficulty breathing, chest pain, blurry vision, loss of vision, nausea, vomiting, abdominal pain, fever, chills, back pain, or any other complaints. [facility]: [address], [place] [id number] Walk in hours from 10am - 12pm Open from 10am - 12pm [facility] Crisis Services: [address] [place] [address] Walk in hours from 10am - 12pm Open 21/12 [facility]: [address] [place] [id number] [address] [place] [id number] Hours: M-F 8am to 8pm Wednesday and Wednesday 9am to 5pm Prescriptions: No Action quetiapine [Seroquel] 300 mg tablet 300 mg PO BEDTIME Qty: 90 1RF rosuvastatin 20 mg tablet 20 mg PO DAILY 30 Days Qty: 30 3RF hydroxyzine pamoate [Vistaril] 25 mg capsule 25 mg PO Q8H 90 Days Qty: 270 0RF fluoxetine 20 mg capsule 20 mg PO QAM clopidogrel 75 mg Tablet 75 mg PO DAILY Qty: 30 0RF clonidine HCl 0.1 mg tablet 0.1 mg PO DAILY quetiapine 50 mg tablet 100 mg PO QAM Rx Instructions: 2 tabs in am and 1 at pm with 300 mg Q pm PO; quetiapine 50 mg tablet 50 mg PO BEDTIME Rx Instructions: 2 tabs in am and 1 at pm with 300 mg Q pm PO; fluoxetine 20 mg capsule 20 mg PO DAILY Qty: 30 0RF mirtazapine 15 mg tablet 15 mg PO BEDTIME Qty: 30 0RF clonidine HCl 0.1 mg tablet 0.1 mg PO DAILY Qty: 30 0RF albuterol sulfate [Ventolin HFA] 90 mcg/actuation HFA aerosol inhaler 2 puff inhalation Q6H PRN (Reason: shortness of breath or wheezing) Qty: 8.5 0RF albuterol sulfate 2.5 mg /3 mL (0.083 %) solution for nebulization 2.5 mg inhalation QID PRN (Reason: shortness of breath or wheezing) Qty: 180 0RF aspirin 81 mg tablet,delayed release (DR/EC) 81 mg PO DAILY 90 Days Qty: 90 3RF sildenafil 100 mg tablet 100 mg PO DAILY PRN (Reason: sexual activity) Qty: 14 2RF Rx Instructions: administer 30 minutes to 4 hours before activity Referrals: [facility] [place] Family Medicine [Provider Group] (Call to establish and follow up with a primary care provider. If you already have a primary care provider, please follow up with them.) [facility] [place] [place] Primary CareLise [Provider Group] (Call to establish and follow up with a primary care provider. If you already have a primary care provider, please follow up with them.) [facility] [place] Primary CareLauren [Provider Group] (Call to establish and follow up with a primary care provider. If you already have a primary care provider, please follow up with them.) Interventions: ED Discharge Assessment Last Done: 01/14/23 09:25 Discharge Date/Time: 01/14/23 09:26 Print Language: Armenian
[2023-01-14 07:32] VITALS: BP 123/68; PULSE 80; RESP 18; TEMP 36.8; O2SAT 98
[2023-01-14 07:46] LABS: MANUAL DIFF FLAG NO
[2023-01-14 07:50] LABS: Basophils Absolute Auto 0.1 X10*3/uL (0.0-0.2); Basophils Percent Auto 0.6 % (0-2); Eosinophils Absolute Auto 0.5 X10*3/uL (0.0-0.4); Eosinophils Percent Auto 3.5 % (0-4); Hematocrit 42.9 % (42.0-52.0); Hemoglobin 14.5 g/dl (14.0-18.0); Imm Gran Abs Auto 0.04 X10*3/uL (0.00-0.03); Imm Gran Pct Auto 0.3 % (0.0-0.4); Lymphocytes Absolute Auto 3.7 X10*3/uL (1.2-4.9); Lymphocytes Percent Auto 27.6 % (20-40); Mean Corpuscular HGB Conc 33.8 g/dl (31.0-36.0); Mean Corpuscular Volume 91.7 fL (80.0-98.0); Mean Platelet Volume 8.7 fL (9.4-12.4); Monocytes Absolute Auto 0.7 X10*3/uL (0.1-1.2); Monocytes Percent Auto 5.2 % (2-11); Neutrophils Absolute Auto 8.5 x10*3/uL (2.0-8.3); Neutrophils Percent Auto 62.8 % (45-73); Platelet Count 351 X10*3/uL (160-400); Red Blood Count 4.68 X10*6/uL (4.60-5.80); White Blood Count 13.5 X10*3/uL (4.8-10.8)
[2023-01-14 08:03] LABS: Alanine Aminotransferase 47 U/L (0-40); Albumin Level 4.4 g/dL (3.5-5.0); Alkaline Phosphatase 72 U/L (39-117); Anion Gap 15 (12-20); Aspartate Amino Transferase 30 U/L (5-37); Bilirubin Total 0.3 mg/dL (0.0-1.0); Blood Urea Nitrogen 9 mg/dL (9-16); Calcium 8.8 mg/dL (8.4-10.2); Carbon Dioxide 22 mmol/L (22-29); Chloride 109 mmol/L (96-108); Creatinine Clr Calc Pharmacy 110.8; Estimated Glomerular Filt Rate > 60; Glucose Random 80 mg/dL (60-115); Magnesium 2.2 mg/dL (1.6-2.6); Potassium 3.8 mmol/L (3.3-5.1); Sodium 142 mmol/L (135-145); Total Protein 7.9 g/dL (6.5-8.0)
--- NOTE | 2023-01-14 09:25 | PC.NURSE ---
cleared for discharge, discharge instructions reviewed with pt. pt ambulated on discharge, no complaints
== END 2023-01-14 09:26 | disposition home or self-care (01) ==
PROVIDERS: Physician Assistant Medical; Emergency Provider Emergency Medicine
DX: F10.220 Alcohol dependence with intoxication, uncomplicated (principal); Y90.9 Presence of alcohol in blood, level not specified; I10 Essential (primary) hypertension; E78.5 Hyperlipidemia, unspecified; F17.210 Nicotine dependence, cigarettes, uncomplicated; Z86.73 Personal history of transient ischemic attack (TIA), and cerebral infarction without residual deficits; Z79.82 Long term (current) use of aspirin; Z79.899 Other long term (current) drug therapy
CPT/HCPCS: 36415; 70450; 80053; 83735; 85025; 99284

== ENCOUNTER 2023-02-23 05:11 | Emergency (ER) | payer OTHER, SELFPAY ==
--- NOTE | 2023-02-23 | ECG_ITS ---
Test Reason : QTC INTERVAL Blood Pressure : / mmHG Vent. Rate : 075 BPM Atrial Rate : 075 BPM P-R Int : 184 ms QRS Dur : 080 ms QT Int : 390 ms P-R-T Axes : 070 030 023 degrees QTc Int : 435 ms Normal sinus rhythm ST elevation, consider early repolarization Borderline ECG When compared with ECG of 23-FEB-2023 10:59, No significant change was found Referred By: Andrews Rashid Electronically Signed By:
[2023-02-23 05:21] VITALS: BP 110/55; PULSE 102; RESP 19; TEMP 36.8; O2SAT 98
[2023-02-23 05:53] VITALS: BP 115/74; BP 116/64; PULSE 100; PULSE 97; RESP 16; TEMP 36.7; O2SAT 98; O2SAT 99; BMI 23.6
--- NOTE | 2023-02-23 05:57 | PC.NURSE ---
pt arrived via ems. He called EMS himself stating he drank too much. Pt reports having 3 40oz beers and 2 four lokos. Pt is alert and oriented x4, needing one redirection to not bang on wall. VSS. Plan of care ongoing
--- NOTE | 2023-02-23 06:50 | ED_ITS ---
HPI - General Adult General Chief complaint: ETOH/Substance Use Stated complaint: etoh Time Seen by Provider: 02/23/23 06:33 Source: patient, EMS, RN notes reviewed and old records reviewed Mode of arrival: EMS History of Present Illness HPI narrative: 52-year-old male with past medical history of asthma, HTN, CVA, bipolar, HLD, anxiety, ETOH abuse, presenting to the ED complaining of ETOH intoxication, admits to drinking 2 [employer] and taking 600 mg of Seroquel. Also reports vague SI/HI. Denies fever/chills, other illicit substance use, fall this injury, abdominal pain nausea/vomiting. Related Data Home Medications Medication Instructions Recorded Confirmed quetiapine 50 mg tablet 100 mg PO QAM 01/02/23 02/23/23 clonidine HCl 0.1 mg tablet 0.1 mg PO DAILY 02/23/23 02/23/23 fluoxetine 20 mg capsule 20 mg PO DAILY 02/23/23 02/23/23 mirtazapine 15 mg tablet 15 mg PO BEDTIME 02/23/23 02/23/23 quetiapine 300 mg tablet 300 mg PO BEDTIME 02/23/23 02/23/23 quetiapine 50 mg tablet 50 mg PO BEDTIME 02/23/23 02/23/23 Previous Rx's Medication Instructions Recorded albuterol sulfate 90 mcg/actuation 2 puff inhalation Q6H PRN 09/10/22 aerosol inhaler (Ventolin HFA) shortness of breath or wheezing #8.5 grams clonidine HCl 0.1 mg tablet 0.1 mg PO DAILY #14 tabs 02/24/23 fluoxetine 20 mg capsule (Prozac) 20 mg PO DAILY #14 caps 02/24/23 mirtazapine 15 mg tablet (Remeron) 15 mg PO BEDTIME #14 tabs 02/24/23 quetiapine 400 mg tablet (Seroquel) 400 mg PO BEDTIME #14 tabs 02/24/23 quetiapine 50 mg tablet (Seroquel) 50 mg PO DAILY #14 tabs 02/24/23 Allergies Allergy/AdvReac Type Severity Reaction Status Date / Time haloperidol [From HALDOL] Allergy Intermediate TONGUE Verified 01/01/23 02:40 SWELLING Review of Systems 2 Review of Systems: Constitutional: No Fever, No Chills, No Fatigue, No Malaise ENT/Mouth: o Ear Pain, No sore throat, No Rhinorrhea, No Swallowing Difficulty Eyes: No Eye Pain, No Swelling, No Redness, Cardiovascular: No Chest Pain, No SOB, No Edema, No Palpitations Respiratory: No Cough, No Sputum, No Dyspnea Gastrointestinal: No Nausea, No Vomiting, No Diarrhea, No Constipation, No Abdominal pain Musculoskeletal: No joint pain, No Myalgias, No Joint Swelling Skin: No Skin Lesions, No rash Neuro: No Weakness,No Headache Psych: No Anxiety/Panic, +Depression, +SI/HI, No AH/VH, + Social Issues Yes all other systems are reviewed and are negative Constitutional: Constitutional: Reports as per [facility] Past Medical History Attestation statement: The following information was validated with the patient. Source: old records reviewed Medical History Overweight Colon cancer screening Annual physical exam Hyperlipidemia Hypertensive cardiovascular disease Carotid stenosis Ischemic stroke H/O: HTN (hypertension) Anxiety Depression Clavicle fracture Mood disorder Alcoholism Bipolar 1 disorder Surgical History History of carotid endarterectomy Hx of hand surgery Hx of hand surgery History of surgical procedure Family History Family History Mother CVA (cerebral vascular accident) Maternal Grandmother Colon cancer Social History Social History Household Members: Other Housing: Apartment Do you presently have visiting nurse or other home services: No Alcohol intake: current Alcohol intake frequency: a few times a week Patient Tobacco Use Status: Current everyday Tobacco user Tobacco use type: Cigarette Cigarette Packs Per Day: 0 Cigarettes Per Day: 5 Years Smoked: 27 e-Cigarette/Vaping Use: Never Used Second Hand Smoke Exposure: Yes Advance Directives: No Advance Directives Information Provided: No Healthcare Proxy: No Guardian: No service: No Current occupational status: employed Cognitive needs: No Hearing needs: No Vision needs: No Physical Exam ED Vital Signs: Vital Signs - 24 hr 02/23/23 15:29 02/24/23 09:25 Temperature 97.6 F 98.1 F Pulse Rate 74 68 Respiratory Rate 16 18 Blood Pressure 114/54 L 119/62 Pulse Oximetry 99 98 Oxygen Delivery Method Room Air Room Air BMI result Body Mass Index 23.6 Const Other: Intoxicated, EtOH odor on breath General: cooperative, no acute distress, alert and awake Orientation/consciousness: patient oriented x3 Limitations: no limitations HENMT Head: Yes normal to inspection and Yes atraumatic Ears: hearing grossly normal bilaterally General nose exam: Normal external nose present Face and sinus: Yes normal facial exam Eyes General: appearance normal, both eyes and all related structures EOM: EOMs intact bilaterally Neck Neck: Yes normal visual inspection and Yes no meningeal signs Resp Effort & Inspection: normal respiratory effort and no respiratory distress Cardio Rate: regular rate Heart sounds: S1 normal heart sound present and S2 normal heart sound present Back/Spine/Pelvis Other: No midline cervical/thoracic/lumbar spinous tenderness/step-off or deformity Skin Rashes: no rashes Wounds: no wounds Neuro General: patient oriented x3, gait normal, tone normal, moves all extremities, no meningeal signs, no focal motor deficits and CN's II-XI intact bilaterally Cranial nerves: Yes CN's II-XII intact bilaterally Gait exam (Neuro): Normal gait present Extrem General: Yes normal to inspection Psych Thought content: Suicidality present, Homicidality present and Depressive thoughts present Course Course Course Narrative: -721--Contacted Poison Control who recommended supportive measures with keeping potassium greater than 4, magnesium greater than 2, EKG q.4 hours, and monitoring for hypoglycemia -911--no leukocytosis. H&H stable. Potassium 3.7 > will give p.o. repletion -ethanol 197. Physician observation initiated at 11:55 as patient needs more time to be evaluated by CARE team -1630--ED care transferred to [facility] pending care team evaluation Reevaluation(s) Reevaluation #1: Continue with physician observation, VSS, no events reported by the nurse overnight, seen and evaluated by care team respite bed search is underway. Continue with physician observation. Time: 07:21 Reevaluation #2: patient will be discharged to respite, will arrange for transportation. Time: 14:40 Medications Administered Generic Name Dose Route Start Last Admin Trade Name Freq PRN Reason Stop Dose Admin Clonidine HCl 0.1 mg 02/24/23 09:00 02/24/23 09:26 Clonidine Hcl 0.1 Mg Tablet PO Not Given DAILY BENITA Protocol Fluoxetine HCl 20 mg 02/24/23 09:00 02/24/23 09:26 Fluoxetine Hcl 20 Mg Capsule PO Not Given DAILY BENITA Mirtazapine 15 mg 02/23/23 21:45 02/23/23 21:49 Mirtazapine 15 Mg Tablet PO 15 mg BEDTIME BENITA Administration Quetiapine Fumarate 100 mg 02/24/23 09:00 02/24/23 09:26 Quetiapine Fumarate 100 Mg Tablet PO Not Given DAILY BENITA Quetiapine Fumarate 300 mg 02/23/23 21:45 02/23/23 21:49 Quetiapine Fumarate 300 Mg Tablet PO 300 mg BEDTIME BENITA Administration Quetiapine Fumarate 50 mg 02/23/23 21:45 02/23/23 21:49 Quetiapine Fumarate 50 Mg Tablet PO 50 mg BEDTIME BENITA Administration Discontinued Medications Generic Name Dose Route Start Last Admin Trade Name Freq PRN Reason Stop Dose Admin Acetaminophen 650 mg 02/23/23 12:47 02/23/23 13:18 Acetaminophen 325 Mg Tablet PO 02/23/23 12:48 650 mg ONCE ONE Administration Potassium Chloride 60 meq 02/23/23 09:13 02/23/23 09:27 Potassium Chloride Packet 20 Meq Packet PO 02/23/23 09:14 60 meq ONCE ONE Administration Medical Decision Making Medical Decision Making [facility] Narrative: 52-year-old male with past medical history of asthma, HTN, CVA, bipolar, HLD, anxiety, ETOH abuse, presenting to the ED complaining of ETOH intoxication, admits to drinking 2 [employer] and taking 600 mg of Seroquel. Also reports vague SI/HI. On exam vital signs stable, NAD, EtOH odor on breath, imaging with steady gait, no evidence of trauma. Concern for ETOH abuse and Seroquel overdose. Also concern for SI/HI. Rule out metabolic abnormalities and organic causes Plan: EKG, labs, tox screen, CARE consult, poison control Please refer to course for remaining clinical decision making, interpretation of labs/imaging results, and discussions with consultants and/or family members. Differential Diagnosis Differential Diagnoses: The differential diagnosis associated with the presentation includes As above Admission/Observation Consideration of admission/observation: Escalation of care including admission/observation considered Consult Healthcare Provider Management of the patient was discussed with: Director Of Direct Marketing and Behavioral Health Provider Lab Data [facility] Lab Attestation statement: I reviewed the patient's lab results. 02/23/23 07:45 02/23/23 07:45 Labs: Lab Results 02/23/23 02/23/23 02/23/23 Range/Units 07:20 07:45 11:03 WBC 8.0 (4.8-10.8) X10*3/uL RBC 4.29 L (4.60-5.80) X10*6/uL Hgb 13.5 L (14.0-18.0) g/dl Hct 39.7 L (42.0-52.0) % MCV 92.5 (80.0-98.0) fL MCH 31.5 (27.0-33.0) pg MCHC 34.0 (31.0-36.0) g/dl RDW 13.2 (11.0-16.0) % Plt Count 335 (160-400) X10*3/uL MPV 8.9 L (9.4-12.4) fL Immature Gran % (Auto) 0.3 (0.0-0.4) % Neut % (Auto) 55.8 (45-73) % Lymph % (Auto) 34.6 (20-40) % [place] % (Auto) 4.8 (2-11) % Eos % (Auto) 4.1 H (0-4) % Baso % (Auto) 0.4 (0-2) % Lymph # (Auto) 2.8 (1.2-4.9) X10*3/uL [place] # (Auto) 0.4 (0.1-1.2) X10*3/uL Eos # (Auto) 0.3 (0.0-0.4) X10*3/uL Baso # (Auto) 0.0 (0.0-0.2) X10*3/uL Abs Immat Gran (auto) 0.02 (0.00-0.03) X10*3/uL Absolute Neuts (auto) 4.5 (2.0-8.3) x10*3/uL Absolute Nucleated RBC 0.000 (0.0-0.012) X10*3/uL Nucleated RBC % (auto) 0.0 (0.0-0.2) /100WBC Sodium 144 (135-145) mmol/L Potassium 3.7 (3.3-5.1) mmol/L Chloride 111 H (96-108) mmol/L Carbon Dioxide 21 L (22-29) mmol/L Anion Gap 16 (12-20) BUN 6 L (9-16) mg/dL Creatinine 0.87 (0.5-1.4) mg/dL Estim Creat Clear Calc 100.4 Estimated GFR > 60 POC Glucose 103 (60-115) mg/dL Random Glucose 92 (60-115) mg/dL Calcium 8.7 (8.4-10.2) mg/dL Magnesium 2.1 (1.6-2.6) mg/dL Total Bilirubin 0.2 (0.0-1.0) mg/dL Direct Bilirubin < 0.2 (0.0-0.5) mg/dL AST 15 (5-37) U/L ALT 13 (0-40) U/L Alkaline Phosphatase 71 (39-117) U/L Total Protein 7.4 (6.5-8.0) g/dL Albumin 4.0 (3.5-5.0) g/dL Urine Color Yellow Urine Appearance Clear Urine pH 6.0 (5.0-9.0) Ur Specific [place] 1.020 (1.005-1.025) Urine Protein Negative (Neg-Trace) mg/dL Urine Glucose (UA) Negative (Negative) mg/dL Urine Ketones Trace (Negative) mg/dL Urine Blood Negative (Negative) Urine Nitrite Negative (Negative) Ur Leukocyte Esterase Negative (Negative) Salicylates < 5.0 L (15-30) mg/dL Urine Opiates Screen Not Detected (Not Detect) Urine Fentanyl Screen Not Detected (Not Detect) Acetaminophen < 17 (<30) mcg/mL Ur Barbiturates Screen Not Detected (Not Detect) Ur Phencyclidine Scrn Not Detected (Not Detect) Ur Amphetamines Screen Not Detected (Not Detect) U Benzodiazepines Scrn Not Detected (Not Detect) Urine Cocaine Screen Not Detected (Not Detect) U Marijuana (THC) Screen Not Detected (Not Detect) Ethyl Alcohol 197 mg/dL Independent Interpretation I performed an independent interpretation of an: EKG (EKG normal sinus rhythm at a rate of 90. QTC 447. Artifact present. No STEMI) Interpretation: Repeat EKG normal sinus rhythm at a rate of 82. QTC 425. No significant change when compared to prior. Radiology Impression Discussion of test interpretation with radiology: I have reviewed the radiologist's reading. Independent Historian Clinical information obtained from an independent historian. History obtained from or confirmed by: EMS External Record Review External record reviewed: Inpatient record, Office record, Outpatient record, Prior outpatient labs, Prior outpatient radiology, Primary care record and Outside ED record Tests considered The following testing was considered but not selected: As above Social Determinants Patient?s care significantly limited by Social Determinants of Health including: Inadequate housing, Low income and Alcoholism and drug addiction in family Discharge Plan Discharge Clinical Impression: Accidental overdose, ETOH abuse, Suicidal thoughts Patient Disposition: Xfer to Respite Facility Prescriptions: New clonidine HCl 0.1 mg tablet 0.1 mg PO DAILY Qty: 14 0RF quetiapine [Seroquel] 50 mg tablet 50 mg PO DAILY Qty: 14 0RF quetiapine [Seroquel] 400 mg tablet 400 mg PO BEDTIME Qty: 14 0RF fluoxetine [Prozac] 20 mg capsule 20 mg PO DAILY Qty: 14 0RF mirtazapine [Remeron] 15 mg tablet 15 mg PO BEDTIME Qty: 14 0RF No Action quetiapine 50 mg tablet 100 mg PO QAM Rx Instructions: 2 tabs in am and 1 at pm with 300 mg Q pm PO; clonidine HCl 0.1 mg tablet 0.1 mg PO DAILY quetiapine 300 mg tablet 300 mg PO BEDTIME mirtazapine 15 mg tablet 15 mg PO BEDTIME fluoxetine 20 mg capsule 20 mg PO DAILY quetiapine 50 mg tablet 50 mg PO BEDTIME albuterol sulfate [Ventolin HFA] 90 mcg/actuation HFA aerosol inhaler 2 puff inhalation Q6H PRN (Reason: shortness of breath or wheezing) Qty: 8.5 0RF
--- NOTE | 2023-02-23 06:52 | ECG_ITS ---
Test Reason : SEROQUEL OD Blood Pressure : / mmHG Vent. Rate : 090 BPM Atrial Rate : 090 BPM P-R Int : 186 ms QRS Dur : 078 ms QT Int : 366 ms P-R-T Axes : 085 036 -01 degrees QTc Int : 447 ms Normal sinus rhythm Normal ECG When compared with ECG of 27-JAN-2019 05:50, No significant change was found Referred By: Salina Thompson Electronically Signed By:LAVERNE AMOR
--- NOTE | 2023-02-23 07:21 | PC.NURSE ---
0712 call placed to poison control. poison control recommends supportive care, Q4 hr EKGs monitoring for QTC prolongation, monitor potassium and Magnesium, preferrably have K at 4 or better, and Mg at 2 or better. monitor for hypoglycemia. monitor for extra parametal effects. LABS to draw VILLEGAS, CMP, LFTs, Mg, CBC, acetaminophen, aspirin, ETOH
[2023-02-23 07:24] LABS: Glucose, Whole Blood 103 mg/dL (60-115)
[2023-02-23 07:51] LABS: Basophils Percent Auto 0.4 % (0-2); Eosinophils Absolute Auto 0.3 X10*3/uL (0.0-0.4); Eosinophils Percent Auto 4.1 % (0-4); Hematocrit 39.7 % (42.0-52.0); Hemoglobin 13.5 g/dl (14.0-18.0); Imm Gran Abs Auto 0.02 X10*3/uL (0.00-0.03); Imm Gran Pct Auto 0.3 % (0.0-0.4); Lymphocytes Absolute Auto 2.8 X10*3/uL (1.2-4.9); Lymphocytes Percent Auto 34.6 % (20-40); MANUAL DIFF FLAG NO; Mean Corpuscular Hemoglobin 31.5 pg (27.0-33.0); Mean Corpuscular Volume 92.5 fL (80.0-98.0); Mean Platelet Volume 8.9 fL (9.4-12.4); Monocytes Absolute Auto 0.4 X10*3/uL (0.1-1.2); Monocytes Percent Auto 4.8 % (2-11); Neutrophils Absolute Auto 4.5 x10*3/uL (2.0-8.3); Neutrophils Percent Auto 55.8 % (45-73); Platelet Count 335 X10*3/uL (160-400); Red Blood Count 4.29 X10*6/uL (4.60-5.80); Red Cell Distribution Width 13.2 % (11.0-16.0)
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
[2023-02-23 08:09] LABS: Acetaminophen LAB < 17 mcg/mL (<30); Alanine Aminotransferase 13 U/L (0-40); Alkaline Phosphatase 71 U/L (39-117); Anion Gap 16 (12-20); Aspartate Amino Transferase 15 U/L (5-37); Bilirubin Direct < 0.2 mg/dL (0.0-0.5); Bilirubin Total 0.2 mg/dL (0.0-1.0); Blood Urea Nitrogen 6 mg/dL (9-16); Calcium 8.7 mg/dL (8.4-10.2); Carbon Dioxide 21 mmol/L (22-29); Chloride 111 mmol/L (96-108); Creatinine Clr Calc Pharmacy 100.4; Estimated Glomerular Filt Rate > 60; Ethanol 197 mg/dL; Glucose Random 92 mg/dL (60-115); Magnesium 2.1 mg/dL (1.6-2.6); Potassium 3.7 mmol/L (3.3-5.1); Salicylate < 5.0 mg/dL (15-30); Sodium 144 mmol/L (135-145); Total Protein 7.4 g/dL (6.5-8.0)
[2023-02-23 08:22] VITALS: BP 106/60; PULSE 93; RESP 14; TEMP 36.6; O2SAT 99
[2023-02-23] MEDS: Potassium Chloride Packet 20 MEQ PACKET 60 MEQ PO (09:27)
--- NOTE | 2023-02-23 11:00 | ECG_ITS ---
Test Reason : QTC CHECK Blood Pressure : / mmHG Vent. Rate : 082 BPM Atrial Rate : 082 BPM P-R Int : 176 ms QRS Dur : 084 ms QT Int : 364 ms P-R-T Axes : 076 040 024 degrees QTc Int : 425 ms Normal sinus rhythm Normal ECG When compared with ECG of 23-FEB-2023 07:02, No significant change was found Referred By: Salina Thompson Electronically Signed By:LAVERNE AMOR
[2023-02-23 11:15] LABS: Appearance Urine Clear; Color Urine Yellow; Glucose Urine UA Negative (Negative); Leukocyte Esterase Urine Negative (Negative); Nitrite Urine Negative (Negative); Urine Blood Negative (Negative); Urine Ketones Trace mg/dL (Negative); Urine Protein Negative (Neg-Trace)
[2023-02-23 11:47] VITALS: BP 96/49; PULSE 96; RESP 14; O2SAT 98
[2023-02-23 12:03] LABS: Amphetamine Screen Urine Not Detected (Not Detect); Barbiturates, Urine Not Detected (Not Detect); Benzodiazepines Screen Urine Not Detected (Not Detect); Cannabinoid Screen Urine Not Detected (Not Detect); Cocaine Screen Urine Not Detected (Not Detect); Fentanyl, urine Not Detected (Not Detect); Opiate Screen Urine Not Detected (Not Detect); Phencyclidine Screen Urine Not Detected (Not Detect)
--- NOTE | 2023-02-23 12:10 | PC.NURSE ---
poison control called RN for update
[2023-02-23] MEDS: Acetaminophen 325 MG TABLET 650 MG PO (13:18)
--- NOTE | 2023-02-23 14:36 | MHC.RECOVSUP ---
Met with pt in [facility]. Pt reports drinking 4 [employer] a day for the past 2 months and has been on Vivitrol and would like to be again. At this time pt is interested in Respit and ATS. Bed search in process.
[2023-02-23 15:29] VITALS: BP 114/54; PULSE 74; RESP 16; TEMP 36.4; O2SAT 99
--- NOTE | 2023-02-23 19:45 | PHA.MEDREC ---
Pharmacy Consult ? Medication Reconciliation Pharmacy has reviewed the medication reconciliation completed by [facility].
[2023-02-23] MEDS: QUEtiapine Fumarate 300 MG TABLET PO (21:49)
[2023-02-23] MEDS: Mirtazapine 15 MG TABLET PO (21:49)
[2023-02-23] MEDS: QUEtiapine Fumarate 50 MG TABLET PO (21:49)
--- NOTE | 2023-02-24 05:57 | PC.NURSE ---
Patient slept through the night, no distress observed/reported, behavior non concerning, medication compliant, disposition per care team is voluntary respite bed search, VSS, labs completed/resulted, will continue to monitor.
[2023-02-24 09:25] VITALS: BP 119/62; PULSE 68; RESP 18; TEMP 36.7; O2SAT 98
--- NOTE | 2023-02-24 10:27 | MHC.CARE ---
Patient information/referral form re faxed to [facility] and is under review for possible admission.
[2023-02-24 15:05] VITALS: BP 114/64; PULSE 64; RESP 18; TEMP 36.3; O2SAT 98
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
== END 2023-02-24 14:55 ==
PROVIDERS: Physician Assistant; Emergency Provider Emergency Medicine; PCP Internal Medicine
DX: T51.0X1A Toxic effect of ethanol, accidental (unintentional), initial encounter (principal); Y92.9 Unspecified place or not applicable; R07.89 Other chest pain; R45.851 Suicidal ideations; F41.9 Anxiety disorder, unspecified; F17.210 Nicotine dependence, cigarettes, uncomplicated; Z71.6 Tobacco abuse counseling; Z79.899 Other long term (current) drug therapy; Z71.41 Alcohol abuse counseling and surveillance of alcoholic
CPT/HCPCS: 36415; 80048; 80076; 80143; 80179; 80307; 81003; 82947; 83735; 85025; 93005; 99285; S9485

== ENCOUNTER 2023-06-01 23:54 | Emergency (ER) | payer OTHER, SELFPAY ==
[2023-06-02 00:04] VITALS: BP 147/69; BP 162/94; PULSE 115; RESP 20; TEMP 36.4; O2SAT 98; BMI 24.4
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
[2023-06-02] MEDS: diphenhydrAMINE HCL 25 MG CAPSULE 50 MG PO (02:05)
[2023-06-02] MEDS: LORazepam 1 MG TABLET 2 MG PO (02:05)
[2023-06-02] MEDS: OLANZapine 7.5 MG TABLET PO (02:05)
--- NOTE | 2023-06-02 02:07 | PC.NURSE ---
pt medicated per mar.
[2023-06-02 05:38] VITALS: BP 110/59; PULSE 74; RESP 16; TEMP 36.6; O2SAT 97
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
--- NOTE | 2023-06-02 11:25 | PC.NURSE ---
pt still sleeping on stretcher. rr even/unlabored.
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
[2023-06-02 17:51] VITALS: BP 130/77; PULSE 88; RESP 16; O2SAT 97
== END 2023-06-02 17:52 ==
PROVIDERS: Emergency Provider Student in an Organized Health Care Education/Training Program
DX: F10.129 Alcohol abuse with intoxication, unspecified (principal); I10 Essential (primary) hypertension; E78.5 Hyperlipidemia, unspecified; Z65.3 Problems related to other legal circumstances
CPT/HCPCS: 99284; 99285

== ENCOUNTER 2023-06-29 22:50 | Emergency (ER) | payer OTHER, SELFPAY ==
[2023-06-29 22:59] VITALS: BP 132/80; PULSE 105; RESP 18; TEMP 36.9; O2SAT 97
[2023-06-29 23:08] VITALS: PULSE 129; O2SAT 96
[2023-06-29 23:16] VITALS: BMI 25.8
--- NOTE | 2023-06-29 23:26 | ED.ALCOHOL ---
HPI - Alcohol General Chief Complaint: ETOH/Substance Use Stated Complaint: ETOH,ADMITS DRINKING ON SEROQUIL Time Seen by Provider: 06/29/23 23:07 Source: patient Mode of arrival: EMS Limitations: other (ETOH abuse) History of Present Illness HPI narrative: 52 yo male with PMH of CVA, asthma, ETOH abuse, bipolar disorder who comes in tonight after heavy drinking he states he feels suicidal the friend called because he was getting obnoxious and acting belligerent then drank is own urine and she stated that was it. MD complaint: alcohol intoxication Last drink: Just prior to admission Chronic alcohol use: Yes Previous visits for alcohol intoxication: Yes Recent trauma: No Associated symptoms: depression, suicidality and other (drank his urine I thought you could do that because it was a liquid ) Treatments prior to arrival: none Related Data Home Medications Medication Instructions Recorded Confirmed quetiapine 50 mg tablet 100 mg PO QAM 01/02/23 02/23/23 clonidine HCl 0.1 mg tablet 0.1 mg PO DAILY 02/23/23 02/23/23 fluoxetine 20 mg capsule 20 mg PO DAILY 02/23/23 02/23/23 mirtazapine 15 mg tablet 15 mg PO BEDTIME 02/23/23 02/23/23 quetiapine 300 mg tablet 300 mg PO BEDTIME 02/23/23 02/23/23 quetiapine 50 mg tablet 50 mg PO BEDTIME 02/23/23 02/23/23 Previous Rx's Medication Instructions Recorded albuterol sulfate 90 mcg/actuation 2 puff inhalation Q6H PRN 09/10/22 aerosol inhaler (Ventolin HFA) shortness of breath or wheezing #8.5 grams clonidine HCl 0.1 mg tablet 0.1 mg PO DAILY #14 tabs 02/24/23 fluoxetine 20 mg capsule (Prozac) 20 mg PO DAILY #14 caps 02/24/23 mirtazapine 15 mg tablet (Remeron) 15 mg PO BEDTIME #14 tabs 02/24/23 quetiapine 400 mg tablet (Seroquel) 400 mg PO BEDTIME #14 tabs 02/24/23 quetiapine 50 mg tablet (Seroquel) 50 mg PO DAILY #14 tabs 02/24/23 Allergies Allergy/AdvReac Type Severity Reaction Status Date / Time haloperidol [From HALDOL] Allergy Intermediate TONGUE Verified 01/01/23 02:40 SWELLING Review of Systems Review of Systems: ROS unable to be obtained due to intoxication [facility] Past Medical History Attestation statement: The following information was validated with the patient. Source: old records reviewed Medical History Overweight Colon cancer screening Annual physical exam Hyperlipidemia Hypertensive cardiovascular disease Carotid stenosis Ischemic stroke H/O: HTN (hypertension) Anxiety Depression Clavicle fracture Mood disorder Alcoholism Bipolar 1 disorder Surgical History History of carotid endarterectomy Hx of hand surgery Hx of hand surgery History of surgical procedure Family History Family History Mother CVA (cerebral vascular accident) Maternal Grandmother Colon cancer Social History Social History Household Members: Other Housing: Apartment Do you presently have visiting nurse or other home services: No Alcohol intake: current Alcohol intake frequency: 3 or more drinks per day Comment: refusing alarm Patient Tobacco Use Status: Current everyday Tobacco user Tobacco use type: Cigarette Cigarette Packs Per Day: 0 Cigarettes Per Day: 5 Years Smoked: 27 e-Cigarette/Vaping Use: Never Used Second Hand Smoke Exposure: Yes service: No Current occupational status: employed Cognitive needs: No Hearing needs: No Vision needs: No Physical Exam ED Vital Signs: Vital Signs - 24 hr 06/29/23 22:59 Temperature 98.4 F Pulse Rate 105 H Respiratory Rate 18 Blood Pressure 132/80 Pulse Oximetry 97 Oxygen Delivery Method Room Air BMI result Body Mass Index 25.8 Appearance: Alert. Oriented X3. No acute distress. the patient is obnoxious and bothers everyone that walks by and calls out all female staff members. he appears very happy and not depressed at all making jokes. ETOH odor Eyes: Pupils equal, round and reactive to light. ENT: Pharynx normal. atraumatic Neck: Normal inspection. Neck supple. CVS: Normal heart rate and rhythm. Pulses normal. Respiratory: No respiratory distress. Breath sounds normal. Abdomen: Soft and nontender. Skin: Skin warm and dry. Normal skin color. Normal skin turgor. Extremities: No lower extremity edema. No calf ttp Neuro: Oriented X 3. No motor deficit. No sensory deficit. CN2-12 intact Course Course Course Narrative: Physician observation started at 1153pm. Patient placed in physician observation because the patient needed more time for CARE team to assess the need for psych admission. At the time observation was started the patient's vitals were stable, patient is alert and oriented, Neuro: nonfocal, CV RRR, Lungs clear Medical Decision Making Medical Decision Making [facility] Narrative: 52 yo male with PMH of CVA, asthma, ETOH abuse, bipolar disorder here after ETOH use - states he's a little suicidal though he does this all the time and he appears as if he is having a great time making jokes and calling out all female staff members to come talk to him. He drank his urine as he thought it was a liquid and it would be funny and okay. He has no signs of head trauma. He will get labs and can see CARE team I have very low suspicion of self harm thoughts he is just intoxicated and acting belligerent. Differential Diagnosis Differential Diagnoses: The differential diagnosis associated with the presentation includes alcohol abuse Admission/Observation Consideration of admission/observation: Escalation of care including admission/observation considered Lab Data [facility] Lab Attestation statement: I reviewed the patient's lab results. 06/29/23 23:25 06/29/23 23:25 Labs: Lab Results 06/29/23 Range/Units 23:25 WBC 8.6 (4.8-10.8) X10*3/uL RBC 4.41 L (4.60-5.80) X10*6/uL Hgb 13.8 L (14.0-18.0) g/dl Hct 40.0 L (42.0-52.0) % MCV 90.7 (80.0-98.0) fL MCH 31.3 (27.0-33.0) pg MCHC 34.5 (31.0-36.0) g/dl RDW 12.8 (11.0-16.0) % Plt Count 363 (160-400) X10*3/uL MPV 8.8 L (9.4-12.4) fL Immature Gran % (Auto) 0.3 (0.0-0.4) % Neut % (Auto) 70.8 (45-73) % Lymph % (Auto) 19.6 L (20-40) % [place] % (Auto) 3.5 (2-11) % Eos % (Auto) 5.2 H (0-4) % Baso % (Auto) 0.6 (0-2) % Lymph # (Auto) 1.7 (1.2-4.9) X10*3/uL [place] # (Auto) 0.3 (0.1-1.2) X10*3/uL Eos # (Auto) 0.5 H (0.0-0.4) X10*3/uL Baso # (Auto) 0.1 (0.0-0.2) X10*3/uL Abs Immat Gran (auto) 0.03 (0.00-0.03) X10*3/uL Absolute Neuts (auto) 6.1 (2.0-8.3) x10*3/uL Absolute Nucleated RBC 0.000 (0.0-0.012) X10*3/uL Nucleated RBC % (auto) 0.0 (0.0-0.2) /100WBC Sodium 144 (135-145) mmol/L Potassium 3.7 (3.3-5.1) mmol/L Chloride 111 H (96-108) mmol/L Carbon Dioxide 24 (22-29) mmol/L Anion Gap 13 (12-20) BUN 7 L (9-16) mg/dL Creatinine 0.89 (0.5-1.4) mg/dL Estim Creat Clear Calc 101.3 Estimated GFR > 60 Random Glucose 92 (60-115) mg/dL Calcium 9.2 (8.4-10.2) mg/dL Magnesium 2.2 (1.6-2.6) mg/dL Total Bilirubin 0.2 (0.0-1.0) mg/dL Direct Bilirubin < 0.2 (0.0-0.5) mg/dL AST 18 (5-37) U/L ALT 27 (0-40) U/L Alkaline Phosphatase 67 (39-117) U/L Total Protein 8.0 (6.5-8.0) g/dL Albumin 4.4 (3.5-5.0) g/dL Urine Opiates Screen Not Detected (Not Detect) Urine Fentanyl Screen Not Detected (Not Detect) Ur Barbiturates Screen Not Detected (Not Detect) Ur Phencyclidine Scrn Not Detected (Not Detect) Ur Amphetamines Screen Not Detected (Not Detect) U Benzodiazepines Scrn Not Detected (Not Detect) Urine Cocaine Screen Not Detected (Not Detect) U Marijuana (THC) Screen Not Detected (Not Detect) Ethyl Alcohol 248 mg/dL COVID-19 (DILSHAD) Negative (Negative) COVID-19 Clin Com See Note Independent Historian Clinical information obtained from an independent historian. History obtained from or confirmed by: Friend External Record Review External record reviewed: Inpatient record Discharge Plan Discharge Clinical Impression: Alcoholic intoxication Qualifiers: Complication of substance-induced condition: uncomplicated Qualified Code(s): F10.920 - Alcohol use, unspecified with intoxication, uncomplicated Instructions: Abuse of Alcohol (ED) Prescriptions: No Action quetiapine 50 mg tablet 100 mg PO QAM Rx Instructions: 2 tabs in am and 1 at pm with 300 mg Q pm PO; clonidine HCl 0.1 mg tablet 0.1 mg PO DAILY quetiapine 300 mg tablet 300 mg PO BEDTIME mirtazapine 15 mg tablet 15 mg PO BEDTIME fluoxetine 20 mg capsule 20 mg PO DAILY quetiapine 50 mg tablet 50 mg PO BEDTIME clonidine HCl 0.1 mg tablet 0.1 mg PO DAILY Qty: 14 0RF quetiapine [Seroquel] 50 mg tablet 50 mg PO DAILY Qty: 14 0RF quetiapine [Seroquel] 400 mg tablet 400 mg PO BEDTIME Qty: 14 0RF fluoxetine [Prozac] 20 mg capsule 20 mg PO DAILY Qty: 14 0RF mirtazapine [Remeron] 15 mg tablet 15 mg PO BEDTIME Qty: 14 0RF albuterol sulfate [Ventolin HFA] 90 mcg/actuation HFA aerosol inhaler 2 puff inhalation Q6H PRN (Reason: shortness of breath or wheezing) Qty: 8.5 0RF
[2023-06-29 23:31] LABS: MANUAL DIFF FLAG NO
[2023-06-29 23:32] LABS: Basophils Absolute Auto 0.1 X10*3/uL (0.0-0.2); Basophils Percent Auto 0.6 % (0-2); Eosinophils Absolute Auto 0.5 X10*3/uL (0.0-0.4); Eosinophils Percent Auto 5.2 % (0-4); Hemoglobin 13.8 g/dl (14.0-18.0); Imm Gran Abs Auto 0.03 X10*3/uL (0.00-0.03); Imm Gran Pct Auto 0.3 % (0.0-0.4); Lymphocytes Absolute Auto 1.7 X10*3/uL (1.2-4.9); Lymphocytes Percent Auto 19.6 % (20-40); Mean Corpuscular HGB Conc 34.5 g/dl (31.0-36.0); Mean Corpuscular Hemoglobin 31.3 pg (27.0-33.0); Mean Corpuscular Volume 90.7 fL (80.0-98.0); Mean Platelet Volume 8.8 fL (9.4-12.4); Monocytes Absolute Auto 0.3 X10*3/uL (0.1-1.2); Monocytes Percent Auto 3.5 % (2-11); Neutrophils Absolute Auto 6.1 x10*3/uL (2.0-8.3); Neutrophils Percent Auto 70.8 % (45-73); Platelet Count 363 X10*3/uL (160-400); Red Blood Count 4.41 X10*6/uL (4.60-5.80); Red Cell Distribution Width 12.8 % (11.0-16.0); White Blood Count 8.6 X10*3/uL (4.8-10.8)
[2023-06-29 23:45] LABS: Amphetamine Screen Urine Not Detected (Not Detect); Barbiturates, Urine Not Detected (Not Detect); Benzodiazepines Screen Urine Not Detected (Not Detect); Cannabinoid Screen Urine Not Detected (Not Detect); Cocaine Screen Urine Not Detected (Not Detect); Fentanyl, urine Not Detected (Not Detect); Opiate Screen Urine Not Detected (Not Detect); Phencyclidine Screen Urine Not Detected (Not Detect)
[2023-06-29 23:47] LABS: COVID-19 Test Negative (Negative); IDNOW Serial# 08D9AD1C
[2023-06-29 23:51] LABS: Alanine Aminotransferase 27 U/L (0-40); Albumin Level 4.4 g/dL (3.5-5.0); Alkaline Phosphatase 67 U/L (39-117); Anion Gap 13 (12-20); Aspartate Amino Transferase 18 U/L (5-37); Bilirubin Direct < 0.2 mg/dL (0.0-0.5); Bilirubin Total 0.2 mg/dL (0.0-1.0); Blood Urea Nitrogen 7 mg/dL (9-16); Calcium 9.2 mg/dL (8.4-10.2); Carbon Dioxide 24 mmol/L (22-29); Chloride 111 mmol/L (96-108); Creatinine Clr Calc Pharmacy 101.3; Estimated Glomerular Filt Rate > 60; Ethanol 248 mg/dL; Glucose Random 92 mg/dL (60-115); Magnesium 2.2 mg/dL (1.6-2.6); Potassium 3.7 mmol/L (3.3-5.1); Sodium 144 mmol/L (135-145)
[2023-06-29] MEDS: LORazepam 1 MG TABLET 2 MG PO (23:57)
--- NOTE | 2023-06-30 00:59 | PC.NURSE ---
pt reporting vague SI. life stressors and asking to go into the behavioral health pod. knot bumper aware. pt ambulating with steady gait. Pt within view of nurses station. security called for foreign exchange services manager, pt belongings secured in pod locker #1. pt remains in 13H for now and will see care team in AM.
[2023-06-30 06:00] VITALS: BP 105/60; PULSE 92; RESP 16; TEMP 37.4; O2SAT 93
--- NOTE | 2023-06-30 08:00 | PC.NURSE ---
Report taken from Veda GRIGGS assumed care of pt at 0700. Resting on stretcher eyes closed, skin pwd respirations even unlabored. VSS. Breakfast tray provided at bedside for pt. Safety maintained in pod, awaiting Care Team eval.
--- NOTE | 2023-06-30 08:10 | PC.NURSE ---
Care Team to bedside for eval.
--- NOTE | 2023-06-30 09:29 | PC.NURSE ---
Pt calm and cooperative with care, remains in behavioral control, meds reconciled request for MD to order. Remains on continuous video monitoring in pod, safety maintained.
--- NOTE | 2023-06-30 09:58 | MHC.RECOVRN ---
Met with pt in 4 after pt cleared by CARE Team. Pt had presented to the ED with alcohol use and SI. Pt laying in bed, awake, alert, easily engages in conversation. Appears comfortable, denies withdrawal symptoms. Pt reports alcohol use, 6-7 24 ounce beers most days x 2 weeks. Pt reports desire for respite. Pt reports that when he does not drink he experiences headache, denies hx DTs or seizures. Pt has been to [facility] in the past, has never received phenobarbital for withdrawal symptoms. Pt is not interested in ATS at this time. Discussed with Renee Sumner APRN. Pt does not appear to be at risk for withdrawal and would be appropriate for respite. Provider and CARE Team aware, provider in agreement with plan for respite.
--- NOTE | 2023-06-30 10:19 | PHA.MEDREC ---
Pharmacy Consult ? Medication Reconciliation Pharmacy has completed the medication reconciliation. Reviewed med rec done by nursing
--- NOTE | 2023-06-30 11:05 | PC.NURSE ---
Report given to Katerina RGIGGS pt exits my care at this time.
[2023-06-30] MEDS: hydrOXYzine HCL 25 MG TABLET PO ×2 (11:33→21:15)
[2023-06-30] MEDS: FLUoxetine HCl 20 MG CAPSULE PO (11:33)
[2023-06-30] MEDS: QUEtiapine Fumarate 100 MG TABLET PO (11:33)
--- NOTE | 2023-06-30 14:13 | MHC.CARE ---
Patient is an [facility] bed search, no availability [facility]/ N today. Plan to re-assess patient and present to [facility] tomorrow if beds available and reassess for medical necessity/ possible discharge planning.
[2023-06-30 18:00] VITALS: RESP 16
[2023-06-30 19:53] LABS: Appearance Urine Clear; Color Urine Yellow; Glucose Urine UA Negative (Negative); Leukocyte Esterase Urine Negative (Negative); Nitrite Urine Negative (Negative); PH 7.5 (5.0-9.0); UMIC TRIGGER UACC YES; Urine Blood Negative (Negative); Urine Ketones Negative (Negative); Urine Protein 30 (1+) mg/dL (Neg-Trace)
--- NOTE | 2023-06-30 20:17 | PC.NURSE ---
his Rn attempted to obtain seroquel 300mg from pyxsis. Although [facility]xsis noted that there were some available, there were none left in the [facility]xsis. Notified Pharmacy
[2023-06-30 21:05] LABS: Bacteria Urine None Seen (None Seen); RBC Urine 0-2 /HPF (0-2); Squamous Epithelial Cell Urine 0-2 /HPF (0-2); WBC Urine 0-5 /HPF (0-5)
[2023-06-30 21:14] VITALS: BP 135/62; PULSE 72; RESP 18; TEMP 36.7; O2SAT 96
[2023-06-30] MEDS: QUEtiapine Fumarate 300 MG TABLET PO (21:15)
[2023-06-30 23:40] VITALS: BP 128/69; PULSE 91; RESP 17; TEMP 36.6; O2SAT 95
[2023-07-01 09:47] VITALS: BP 111/51; PULSE 60; RESP 18; TEMP 36.8; O2SAT 97
[2023-07-01] MEDS: hydrOXYzine HCL 25 MG TABLET PO (10:37)
[2023-07-01] MEDS: QUEtiapine Fumarate 100 MG TABLET PO (10:37)
[2023-07-01] MEDS: FLUoxetine HCl 20 MG CAPSULE PO (10:38)
--- NOTE | 2023-07-01 13:07 | PC.NURSE ---
Assumed care of patient at 1100, patient is resting on bed with 1:1 present due to ankle monitor charging. Pt is calm and cooperative, offering no complaints at this time. Respirations even and unlabored, skin pwd. Aware of plan of care for [facility]
== END 2023-07-01 16:03 | disposition home or self-care (01) ==
PROVIDERS: Emergency Medicine; Emergency Provider Emergency Medicine; PCP Internal Medicine
DX: F10.120 Alcohol abuse with intoxication, uncomplicated (principal); Y90.8 Blood alcohol level of 240 mg/100 ml or more; I10 Essential (primary) hypertension; F17.210 Nicotine dependence, cigarettes, uncomplicated; Z86.73 Personal history of transient ischemic attack (TIA), and cerebral infarction without residual deficits; Z79.899 Other long term (current) drug therapy
CPT/HCPCS: 80048; 80076; 80307; 81001; 81003; 83735; 85025; 87635; 99285; S9485

== ENCOUNTER 2023-07-04 21:51 | Emergency (ER) | payer OTHER, SELFPAY ==
[2023-07-04 22:25] VITALS: BP 137/89; BP 172/92; PULSE 112; PULSE 97; RESP 18; TEMP 36.6; O2SAT 95; O2SAT 96; BMI 24.4
[2023-07-04 22:26] VITALS: BP 137/89; PULSE 97; RESP 18; TEMP 36.6; O2SAT 96
--- NOTE | 2023-07-04 22:29 | MHC.EDTECH ---
Patient came in by ambulance, vitals taken,security called to assist with exchange engineer, urine sample collected and sent to lab. Belongings list completed and placed in the POD Laundry closet.copy placed in chart
--- NOTE | 2023-07-04 22:32 | ED.ALCOHOL ---
HPI - Alcohol General Chief Complaint: ETOH/Substance Use Stated Complaint: ETOH Time Seen by Provider: 07/04/23 22:00 Source: patient Mode of arrival: ambulatory Limitations: no limitations History of Present Illness HPI narrative: Patient alcoholic and depressed been to detox few years ago asking for detox and help, feels suicidal with no plan Related Data Home Medications Medication Instructions Recorded Confirmed quetiapine 50 mg tablet 100 mg PO DAILY 01/02/23 06/30/23 fluoxetine 20 mg capsule 20 mg PO DAILY 06/30/23 06/30/23 hydroxyzine pamoate 25 mg capsule 25 mg PO BID 06/30/23 06/30/23 quetiapine 300 mg tablet 300 mg PO BEDTIME 06/30/23 06/30/23 Previous Rx's Medication Instructions Recorded albuterol sulfate 90 mcg/actuation 2 puff inhalation Q6H PRN 09/10/22 aerosol inhaler (Ventolin HFA) shortness of breath or wheezing #8.5 grams Allergies Allergy/AdvReac Type Severity Reaction Status Date / Time haloperidol [From HALDOL] Allergy Intermediate TONGUE Verified 06/30/23 00:46 SWELLING Review of Systems Review of Systems: Yes all other systems are reviewed and are negative PMFSH Past Medical History Medical History Overweight Colon cancer screening Annual physical exam Hyperlipidemia Hypertensive cardiovascular disease Carotid stenosis Ischemic stroke H/O: HTN (hypertension) Anxiety Depression Clavicle fracture Mood disorder Alcoholism Bipolar 1 disorder Surgical History History of carotid endarterectomy Hx of hand surgery Hx of hand surgery History of surgical procedure Family History Family History Mother CVA (cerebral vascular accident) Maternal Grandmother Colon cancer Social History Social History Household Members: Other Housing: Apartment Do you presently have visiting nurse or other home services: No Alcohol intake: current Alcohol intake frequency: 3 or more drinks per day Alcohol type: beer Comment: refusing alarm Patient Tobacco Use Status: Current everyday Tobacco user Tobacco use type: Cigarette Cigarette Packs Per Day: 0 Cigarettes Per Day: 5 Years Smoked: 27 Smoked in Last 30 Days: Yes e-Cigarette/Vaping Use: Never Used Second Hand Smoke Exposure: Yes Use of substances other than those prescribed or required for medical reasons: No Advance Directives: No Advance Directives Information Provided: No service: No Current occupational status: employed Cognitive needs: No Hearing needs: No Vision needs: No Physical Exam ED Vital Signs: Vital Signs - 24 hr 07/04/23 22:25 07/04/23 22:26 07/04/23 23:34 Temperature 97.9 F 97.9 F Pulse Rate 97 97 116 H Respiratory Rate 18 18 14 Blood Pressure 137/89 137/89 136/78 Pulse Oximetry 96 96 95 Oxygen Delivery Method Room Air Room Air Room Air BMI result Body Mass Index 24.4 Appearance: Alert. Oriented X3. No acute distress. Eyes: PERRLA, ENT: Pharynx normal. Oral Mucosa moist Neck: Normal inspection. Neck supple. CVS: Normal heart rate and rhythm. Pulses normal. Respiratory: No respiratory distress. Equal air entry bilateral, Abdomen: Soft and nontender. Bowel sounds are present, Skin: Skin warm and dry. Normal skin color. Normal skin turgor. Extremities: No lower extremity edema. No calf tenderness psych: Stable mood denied SI or HI at this time Neuro: Oriented X 3. No motor deficit. No sensory deficit.No cerebellar signs , cranial nerves II-XII intact Medical Decision Making Medical Decision Making MDM Narrative: Patient alcoholic requesting detox and help at 1 time as a nurse to give him the plan to stab himself with vague ideas of SI but no plan. Will get care team involved for detox and depression Lab Data MDM Lab Attestation statement: I reviewed the patient's lab results. 07/04/23 22:42 07/04/23 22:42 Labs: Lab Results 07/04/23 Range/Units 22:42 WBC 9.4 (4.8-10.8) X10*3/uL RBC 4.38 L (4.60-5.80) X10*6/uL Hgb 13.7 L (14.0-18.0) g/dl Hct 39.0 L (42.0-52.0) % MCV 89.0 (80.0-98.0) fL MCH 31.3 (27.0-33.0) pg MCHC 35.1 (31.0-36.0) g/dl RDW 12.6 (11.0-16.0) % Plt Count 371 (160-400) X10*3/uL MPV 8.7 L (9.4-12.4) fL Immature Gran % (Auto) 0.3 (0.0-0.4) % Neut % (Auto) 68.3 (45-73) % Lymph % (Auto) 24.6 (20-40) % [place] % (Auto) 3.4 (2-11) % Eos % (Auto) 3.1 (0-4) % Baso % (Auto) 0.3 (0-2) % Lymph # (Auto) 2.3 (1.2-4.9) X10*3/uL [place] # (Auto) 0.3 (0.1-1.2) X10*3/uL Eos # (Auto) 0.3 (0.0-0.4) X10*3/uL Baso # (Auto) 0.0 (0.0-0.2) X10*3/uL Abs Immat Gran (auto) 0.03 (0.00-0.03) X10*3/uL Absolute Neuts (auto) 6.4 (2.0-8.3) x10*3/uL Absolute Nucleated RBC 0.000 (0.0-0.012) X10*3/uL Nucleated RBC % (auto) 0.0 (0.0-0.2) /100WBC Sodium 142 (135-145) mmol/L Potassium 3.9 (3.3-5.1) mmol/L Chloride 108 (96-108) mmol/L Carbon Dioxide 19 L (22-29) mmol/L Anion Gap 19 (12-20) BUN 7 L (9-16) mg/dL Creatinine 0.93 (0.5-1.4) mg/dL Estim Creat Clear Calc 100.0 Estimated GFR > 60 Random Glucose 98 (60-115) mg/dL Calcium 8.8 (8.4-10.2) mg/dL Magnesium 2.2 (1.6-2.6) mg/dL Total Bilirubin 0.2 (0.0-1.0) mg/dL AST 18 (5-37) U/L ALT 25 (0-40) U/L Alkaline Phosphatase 77 (39-117) U/L Total Protein 8.1 H (6.5-8.0) g/dL Albumin 4.5 (3.5-5.0) g/dL Ethyl Alcohol 272 mg/dL Medications Administered Discontinued Medications Generic Name Dose Route Start Last Admin Trade Name Freq PRN Reason Stop Dose Admin Lorazepam 2 mg 07/04/23 22:32 07/04/23 22:48 Lorazepam 1 Mg Tablet PO 07/04/23 22:33 2 mg ONCE ONE Administration Quetiapine Fumarate 300 mg 07/04/23 22:40 07/04/23 22:50 Quetiapine Fumarate 300 Mg Tablet PO 07/04/23 22:41 300 mg ONCE ONE Administration Discharge Plan Discharge Clinical Impression: Bipolar 1 disorder, Alcoholic intoxication, Depression Patient Disposition: Still a Patient Prescriptions: No Action quetiapine 300 mg tablet 300 mg PO BEDTIME fluoxetine 20 mg capsule 20 mg PO DAILY hydroxyzine pamoate 25 mg capsule 25 mg PO BID quetiapine 50 mg tablet 100 mg PO DAILY Rx Instructions: 2 tabs in am and 1 at pm with 300 mg Q pm PO; albuterol sulfate [Ventolin HFA] 90 mcg/actuation HFA aerosol inhaler 2 puff inhalation Q6H PRN (Reason: shortness of breath or wheezing) Qty: 8.5 0RF
--- NOTE | 2023-07-04 22:44 | MHC.EDTECH ---
Labs obtained and sent to lab.
[2023-07-04] MEDS: LORazepam 1 MG TABLET 2 MG PO (22:48)
[2023-07-04 22:50] LABS: MANUAL DIFF FLAG NO
[2023-07-04] MEDS: QUEtiapine Fumarate 300 MG TABLET PO (22:50)
[2023-07-04 22:58] LABS: Basophils Percent Auto 0.3 % (0-2); Eosinophils Absolute Auto 0.3 X10*3/uL (0.0-0.4); Eosinophils Percent Auto 3.1 % (0-4); Hemoglobin 13.7 g/dl (14.0-18.0); Imm Gran Abs Auto 0.03 X10*3/uL (0.00-0.03); Imm Gran Pct Auto 0.3 % (0.0-0.4); Lymphocytes Absolute Auto 2.3 X10*3/uL (1.2-4.9); Lymphocytes Percent Auto 24.6 % (20-40); Mean Corpuscular HGB Conc 35.1 g/dl (31.0-36.0); Mean Corpuscular Hemoglobin 31.3 pg (27.0-33.0); Mean Platelet Volume 8.7 fL (9.4-12.4); Monocytes Absolute Auto 0.3 X10*3/uL (0.1-1.2); Monocytes Percent Auto 3.4 % (2-11); Neutrophils Absolute Auto 6.4 x10*3/uL (2.0-8.3); Neutrophils Percent Auto 68.3 % (45-73); Platelet Count 371 X10*3/uL (160-400); Red Blood Count 4.38 X10*6/uL (4.60-5.80); Red Cell Distribution Width 12.6 % (11.0-16.0); White Blood Count 9.4 X10*3/uL (4.8-10.8)
[2023-07-04 23:08] LABS: Alanine Aminotransferase 25 U/L (0-40); Albumin Level 4.5 g/dL (3.5-5.0); Alkaline Phosphatase 77 U/L (39-117); Anion Gap 19 (12-20); Aspartate Amino Transferase 18 U/L (5-37); Bilirubin Total 0.2 mg/dL (0.0-1.0); Blood Urea Nitrogen 7 mg/dL (9-16); Calcium 8.8 mg/dL (8.4-10.2); Carbon Dioxide 19 mmol/L (22-29); Chloride 108 mmol/L (96-108); Estimated Glomerular Filt Rate > 60; Ethanol 272 mg/dL; Glucose Random 98 mg/dL (60-115); Magnesium 2.2 mg/dL (1.6-2.6); Potassium 3.9 mmol/L (3.3-5.1); Sodium 142 mmol/L (135-145); Total Protein 8.1 g/dL (6.5-8.0)
[2023-07-04 23:34] VITALS: BP 136/78; PULSE 116; RESP 14; O2SAT 95
--- NOTE | 2023-07-04 23:37 | PC.NURSE ---
Pt resting at the bedside eating a sandwich and drinking fabiola leigh. Denies pain and SI/HI at this time. Asked where am I . Pt oriented to place and situation. Monitoring is ongoing.
--- NOTE | 2023-07-05 03:52 | PC.NURSE ---
Assumed care for pt. Pt currently sleeping at the bedside. No apparent distress noted. Breaths are even regular and unlabored with equal chest rises. Plan of care is ongoing.
[2023-07-05 04:11] VITALS: BP 106/60; PULSE 88; RESP 16; TEMP 36.6; O2SAT 98
[2023-07-05 06:42] VITALS: PULSE 88; RESP 16; O2SAT 99
--- NOTE | 2023-07-05 07:20 | PC.NURSE ---
Alert and responsive, reports just wants to sleep stating he will eat breakfast later
[2023-07-05 07:45] VITALS: BP 106/57; PULSE 95; RESP 18; TEMP 37; O2SAT 98
== END 2023-07-05 10:01 | disposition home or self-care (01) ==
PROVIDERS: Emergency Provider Internal Medicine; PCP Internal Medicine
DX: F33.1 Major depressive disorder, recurrent, moderate (principal); F10.10 Alcohol abuse, uncomplicated; Y90.8 Blood alcohol level of 240 mg/100 ml or more; Z79.899 Other long term (current) drug therapy
CPT/HCPCS: 36415; 80053; 80307; 83735; 85025; 99283; 99285

== ENCOUNTER 2023-07-06 21:48 | Emergency (ER) | payer OTHER, SELFPAY ==
[2023-07-06 21:56] VITALS: BP 168/92; PULSE 102; O2SAT 98
[2023-07-06 22:00] VITALS: BP 133/64; PULSE 99; RESP 18; TEMP 36.6; O2SAT 98; BMI 26.4
[2023-07-06 22:28] LABS: Appearance Urine Clear; Color Urine Yellow; Glucose Urine UA Negative (Negative); Leukocyte Esterase Urine Negative (Negative); Nitrite Urine Negative (Negative); Specific Gravity - Urine <= 1.005 (1.005-1.025); Urine Blood Negative (Negative); Urine Ketones Negative (Negative); Urine Protein Negative (Neg-Trace)
[2023-07-06 22:36] LABS: MANUAL DIFF FLAG NO
[2023-07-06 22:37] LABS: Amphetamine Screen Urine Not Detected (Not Detect); Barbiturates, Urine Not Detected (Not Detect); Benzodiazepines Screen Urine Not Detected (Not Detect); Cannabinoid Screen Urine Not Detected (Not Detect); Cocaine Screen Urine Not Detected (Not Detect); Fentanyl, urine Not Detected (Not Detect); Opiate Screen Urine Not Detected (Not Detect); Phencyclidine Screen Urine Not Detected (Not Detect)
[2023-07-06 22:40] LABS: Basophils Absolute Auto 0.1 X10*3/uL (0.0-0.2); Basophils Percent Auto 0.5 % (0-2); Eosinophils Absolute Auto 0.4 X10*3/uL (0.0-0.4); Hematocrit 39.2 % (42.0-52.0); Hemoglobin 13.5 g/dl (14.0-18.0); Imm Gran Abs Auto 0.03 X10*3/uL (0.00-0.03); Imm Gran Pct Auto 0.3 % (0.0-0.4); Lymphocytes Absolute Auto 2.3 X10*3/uL (1.2-4.9); Lymphocytes Percent Auto 23.6 % (20-40); Mean Corpuscular HGB Conc 34.4 g/dl (31.0-36.0); Mean Corpuscular Hemoglobin 30.4 pg (27.0-33.0); Mean Corpuscular Volume 88.3 fL (80.0-98.0); Mean Platelet Volume 8.5 fL (9.4-12.4); Monocytes Absolute Auto 0.3 X10*3/uL (0.1-1.2); Monocytes Percent Auto 3.4 % (2-11); Neutrophils Absolute Auto 6.7 x10*3/uL (2.0-8.3); Neutrophils Percent Auto 68.2 % (45-73); Platelet Count 387 X10*3/uL (160-400); Red Blood Count 4.44 X10*6/uL (4.60-5.80); Red Cell Distribution Width 12.4 % (11.0-16.0); White Blood Count 9.8 X10*3/uL (4.8-10.8)
[2023-07-06 22:57] LABS: Alanine Aminotransferase 22 U/L (0-40); Albumin Level 4.6 g/dL (3.5-5.0); Alkaline Phosphatase 85 U/L (39-117); Anion Gap 18 (12-20); Aspartate Amino Transferase 23 U/L (5-37); Bilirubin Total 0.2 mg/dL (0.0-1.0); Blood Urea Nitrogen 10 mg/dL (9-16); Calcium 8.7 mg/dL (8.4-10.2); Carbon Dioxide 17 mmol/L (22-29); Chloride 109 mmol/L (96-108); Creatinine Clr Calc Pharmacy 94.9; Estimated Glomerular Filt Rate > 60; Ethanol 316 mg/dL; Glucose Random 79 mg/dL (60-115); Potassium 4.2 mmol/L (3.3-5.1); Sodium 140 mmol/L (135-145); Total Protein 8.4 g/dL (6.5-8.0)
--- NOTE | 2023-07-07 00:45 | ED_ITS ---
HPI - Alcohol General Chief Complaint: ETOH/Substance Use Stated Complaint: ETOH Time Seen by Provider: 07/06/23 23:21 Source: patient Mode of arrival: EMS History of Present Illness HPI narrative: 52-year-old male with known chronic alcoholic use is brought in by EMS for alcohol intoxication. Related Data Home Medications Medication Instructions Recorded Confirmed quetiapine 50 mg tablet 100 mg PO DAILY 01/02/23 06/30/23 fluoxetine 20 mg capsule 20 mg PO DAILY 06/30/23 06/30/23 hydroxyzine pamoate 25 mg capsule 25 mg PO BID 06/30/23 06/30/23 quetiapine 300 mg tablet 300 mg PO BEDTIME 06/30/23 06/30/23 Previous Rx's Medication Instructions Recorded albuterol sulfate 90 mcg/actuation 2 puff inhalation Q6H PRN 09/10/22 aerosol inhaler (Ventolin HFA) shortness of breath or wheezing #8.5 grams Allergies Allergy/AdvReac Type Severity Reaction Status Date / Time haloperidol [From HALDOL] Allergy Intermediate TONGUE Verified 06/30/23 00:46 SWELLING Review of Systems 2 Review of Systems: Pertinent positives and negatives as stated in HPI PMFSH Past Medical History Source: nursing notes reviewed Medical History Overweight Colon cancer screening Annual physical exam Hyperlipidemia Hypertensive cardiovascular disease Carotid stenosis Ischemic stroke H/O: HTN (hypertension) Anxiety Depression Clavicle fracture Mood disorder Alcoholism Bipolar 1 disorder Surgical History History of carotid endarterectomy Hx of hand surgery Hx of hand surgery History of surgical procedure Family History Family History Mother CVA (cerebral vascular accident) Maternal Grandmother Colon cancer Social History Social History Household Members: Other Housing: Apartment Do you presently have visiting nurse or other home services: No Alcohol intake: current Alcohol intake frequency: 3 or more drinks per day Alcohol type: beer Comment: refusing alarm Patient Tobacco Use Status: Current everyday Tobacco user Tobacco use type: Cigarette Cigarette Packs Per Day: 0 Cigarettes Per Day: 5 Years Smoked: 27 e-Cigarette/Vaping Use: Never Used Second Hand Smoke Exposure: Yes Advance Directives: No Advance Directives Information Provided: No service: No Current occupational status: employed Cognitive needs: No Hearing needs: No Vision needs: No Physical Exam ED Vital Signs: Vital Signs - 24 hr 07/06/23 22:00 Temperature 98 F Pulse Rate 99 Respiratory Rate 18 Blood Pressure 133/64 Pulse Oximetry 98 Oxygen Delivery Method Room Air BMI result Body Mass Index 26.4 VITAL SIGNS: Reviewed. GENERAL: Well developed, well nourished, in no acute distress, clinically intoxicated. HEAD: Normocephalic/atraumatic EYES: PERRLA, EOMI EARS: Ext canals without abnormality NOSE: Nares patent bilateral OROPHARYNX: no oral lesions noted, posterior pharynx clear NECK: Supple, no adenopathy LUNGS: Normal breath sounds. No adventitious sounds or accessory muscle use. SpO2<98> CARDIOVASCULAR: Regular rate and rhythm without noted murmurs ABDOMEN: Soft, non-tender, non-distended with bowel sounds. MUSCULOSKELETAL: No tenderness, deformities, or effusions noted on gross inspection. EXTREMITIES: No cyanosis, clubbing or edema. SKIN: Inspection of the skin reveals no rashes NEUROLOGIC: Alert and oriented x 4. Strength and sensation to light touch were grossly intact x 4. Medical Decision Making Medical Decision Making [facility] Narrative: 52-year-old male with history and clinical presentation consistent with alcohol use disorder and current alcohol intoxication. I reviewed all investigations and hematologic indices are chronically stable without leukocytosis or left shift, there is a normocytic anemia and no thrombocytopenia. Chemistry indices do not demonstrate any PRECIOUS or electrolyte/liver enzymes derangements. Urinalysis is negative for UTI or hematuria. UDS is negative and alcohol-316 Patient placed in physician observation because the patient needed more time for clinical sobriety. At the time observation was started the patient's vital signs were stable, patient is alert and oriented, neuro: Nonfocal, CV RRR, lungs clear Differential Diagnosis Differential Diagnoses: The differential diagnosis associated with the presentation includes Please see the discussion above Admission/Observation Consideration of admission/observation: Escalation of care including admission/observation considered Please see the discussion above Lab Data [facility] Lab Attestation statement: I reviewed the patient's lab results. Please see the discussion above 07/06/23 22:31 07/06/23 22:31 Labs: Lab Results 07/06/23 07/06/23 Range/Units 22:10 22:31 WBC 9.8 (4.8-10.8) X10*3/uL RBC 4.44 L (4.60-5.80) X10*6/uL Hgb 13.5 L (14.0-18.0) g/dl Hct 39.2 L (42.0-52.0) % MCV 88.3 (80.0-98.0) fL MCH 30.4 (27.0-33.0) pg MCHC 34.4 (31.0-36.0) g/dl RDW 12.4 (11.0-16.0) % Plt Count 387 (160-400) X10*3/uL MPV 8.5 L (9.4-12.4) fL Immature Gran % (Auto) 0.3 (0.0-0.4) % Neut % (Auto) 68.2 (45-73) % Lymph % (Auto) 23.6 (20-40) % [place] % (Auto) 3.4 (2-11) % Eos % (Auto) 4.0 (0-4) % Baso % (Auto) 0.5 (0-2) % Lymph # (Auto) 2.3 (1.2-4.9) X10*3/uL [place] # (Auto) 0.3 (0.1-1.2) X10*3/uL Eos # (Auto) 0.4 (0.0-0.4) X10*3/uL Baso # (Auto) 0.1 (0.0-0.2) X10*3/uL Abs Immat Gran (auto) 0.03 (0.00-0.03) X10*3/uL Absolute Neuts (auto) 6.7 (2.0-8.3) x10*3/uL Absolute Nucleated RBC 0.000 (0.0-0.012) X10*3/uL Nucleated RBC % (auto) 0.0 (0.0-0.2) /100WBC Sodium 140 (135-145) mmol/L Potassium 4.2 (3.3-5.1) mmol/L Chloride 109 H (96-108) mmol/L Carbon Dioxide 17 L (22-29) mmol/L Anion Gap 18 (12-20) BUN 10 (9-16) mg/dL Creatinine 0.98 (0.5-1.4) mg/dL Estim Creat Clear Calc 94.9 Estimated GFR > 60 Random Glucose 79 (60-115) mg/dL Calcium 8.7 (8.4-10.2) mg/dL Total Bilirubin 0.2 (0.0-1.0) mg/dL AST 23 (5-37) U/L ALT 22 (0-40) U/L Alkaline Phosphatase 85 (39-117) U/L Total Protein 8.4 H (6.5-8.0) g/dL Albumin 4.6 (3.5-5.0) g/dL Urine Color Yellow Urine Appearance Clear Urine pH 5.0 (5.0-9.0) Ur Specific [place] <= 1.005 (1.005-1.025) Urine Protein Negative (Neg-Trace) mg/dL Urine Glucose (UA) Negative (Negative) mg/dL Urine Ketones Negative (Negative) mg/dL Urine Blood Negative (Negative) Urine Nitrite Negative (Negative) Ur Leukocyte Esterase Negative (Negative) Urine Opiates Screen Not Detected (Not Detect) Urine Fentanyl Screen Not Detected (Not Detect) Ur Barbiturates Screen Not Detected (Not Detect) Ur Phencyclidine Scrn Not Detected (Not Detect) Ur Amphetamines Screen Not Detected (Not Detect) U Benzodiazepines Scrn Not Detected (Not Detect) Urine Cocaine Screen Not Detected (Not Detect) U Marijuana (THC) Screen Not Detected (Not Detect) Ethyl Alcohol 316 H* mg/dL External Record Review External record reviewed: Outpatient record, Prior outpatient labs and Prior outpatient radiology Social Determinants Patient?s care significantly limited by Social Determinants of Health including: Alcoholism and drug addiction in family Critical Care Time Critical Care Time Critical Care Time: Yes Total Critical Care Time: 45 Attestation: I personally attest to this time spent taking care of the patient. Discharge Plan Discharge Clinical Impression: Alcohol use disorder, Alcohol intoxication Patient Disposition: Still a Patient Prescriptions: No Action quetiapine 300 mg tablet 300 mg PO BEDTIME fluoxetine 20 mg capsule 20 mg PO DAILY hydroxyzine pamoate 25 mg capsule 25 mg PO BID quetiapine 50 mg tablet 100 mg PO DAILY Rx Instructions: 2 tabs in am and 1 at pm with 300 mg Q pm PO; albuterol sulfate [Ventolin HFA] 90 mcg/actuation HFA aerosol inhaler 2 puff inhalation Q6H PRN (Reason: shortness of breath or wheezing) Qty: 8.5 0RF
[2023-07-07 02:20] VITALS: BP 122/53; PULSE 94; RESP 18; TEMP 37.2; O2SAT 97
[2023-07-07 04:00] VITALS: RESP 18
[2023-07-07 06:07] VITALS: BP 138/65; PULSE 90; RESP 20; TEMP 37.1; O2SAT 95
== END 2023-07-07 07:59 | disposition home or self-care (01) ==
PROVIDERS: Emergency Provider Student in an Organized Health Care Education/Training Program
DX: F10.929 Alcohol use, unspecified with intoxication, unspecified (principal); Y90.8 Blood alcohol level of 240 mg/100 ml or more; I13.10 Hypertensive heart and chronic kidney disease without heart failure, with stage 1 through stage 4 chronic kidney disease, or unspecified chronic kidney disease; N18.9 Chronic kidney disease, unspecified; E78.5 Hyperlipidemia, unspecified; Z79.899 Other long term (current) drug therapy
CPT/HCPCS: 36415; 80053; 80307; 81003; 85025; 99284

== ENCOUNTER 2024-02-24 08:18 | Outpatient (REF) | payer OTHER, SELFPAY ==
[2024-02-24 10:18] LABS: MANUAL DIFF FLAG NO
[2024-02-24 10:58] LABS: Basophils Percent Auto 0.3 % (0-2); Eosinophils Absolute Auto 0.5 X10*3/uL (0.0-0.4); Eosinophils Percent Auto 4.5 % (0-4); Hemoglobin 13.7 g/dl (14.0-18.0); Imm Gran Abs Auto 0.04 X10*3/uL (0.00-0.03); Imm Gran Pct Auto 0.4 % (0.0-0.4); Lymphocytes Percent Auto 19.8 % (20-40); Mean Corpuscular HGB Conc 32.6 g/dl (31.0-36.0); Mean Corpuscular Hemoglobin 29.7 pg (27.0-33.0); Mean Corpuscular Volume 90.9 fL (80.0-98.0); Mean Platelet Volume 8.9 fL (9.4-12.4); Monocytes Absolute Auto 0.4 X10*3/uL (0.1-1.2); Monocytes Percent Auto 4.3 % (2-11); Neutrophils Absolute Auto 7.1 x10*3/uL (2.0-8.3); Neutrophils Percent Auto 70.7 % (45-73); Platelet Count 416 X10*3/uL (160-400); Red Blood Count 4.62 X10*6/uL (4.60-5.80); Red Cell Distribution Width 13.2 % (11.0-16.0); White Blood Count 10.1 X10*3/uL (4.8-10.8)
[2024-02-24 11:28] LABS: Alanine Aminotransferase 31 U/L (0-40); Albumin Level 4.6 g/dL (3.5-5.0); Alkaline Phosphatase 65 U/L (39-117); Anion Gap 12 (12-20); Aspartate Amino Transferase 18 U/L (5-37); Bilirubin Total 0.3 mg/dL (0.0-1.0); Blood Urea Nitrogen 16 mg/dL (9-16); Calcium 9.6 mg/dL (8.4-10.2); Carbon Dioxide 25 mmol/L (22-29); Chloride 108 mmol/L (96-108); Cholesterol 156 mg/dL (<200); Estimated Glomerular Filt Rate > 60; Glucose Random 102 mg/dL (60-115); HDL Cholesterol 52 mg/dL (>40); LDL Cholesterol Calculated 95 mg/dL (<100); Potassium 4.7 mmol/L (3.3-5.1); Sodium 140 mmol/L (135-145); Total Protein 8.3 g/dL (6.5-8.0); Triglycerides 48 mg/dL (<150)
[2024-02-24 11:38] LABS: HIV AB/AG Nonreactive (Nonreactive); HIV Num 1 0.05 S/CO (0.00-0.99)
[2024-02-24 11:45] LABS: Free T4 (Free Thyroxine) 0.97 ng/dL (0.71-1.85); Thyroid Stimulating Hormone 3.08 uIU/mL (0.32-4.0)
[2024-02-24 11:51] LABS: Folate 13.3 ng/mL (> or = 4.0); Prostate Specific Antigen Scr 1.35 ng/mL (<0.05-4.0); Vitamin B12 693 pg/mL (200-900)
== END 2024-02-24 08:19 | disposition home or self-care (01) ==
LOC: HO.LAB 08:18
PROVIDERS: PCP Internal Medicine; Visit Provider Internal Medicine
DX: E66.3 Overweight (principal); Z68.29 Body mass index [BMI] 29.0-29.9, adult; J45.909 Unspecified asthma, uncomplicated; F31.9 Bipolar disorder, unspecified; H57.89 Other specified disorders of eye and adnexa; R09.81 Nasal congestion; N52.9 Male erectile dysfunction, unspecified; I10 Essential (primary) hypertension; E78.00 Pure hypercholesterolemia, unspecified; Z72.0 Tobacco use
CPT/HCPCS: 36415; 80053; 80061; 82607; 82746; 84153; 84439; 84443; 85025; 87389; 96127; 99212

== ENCOUNTER 2024-02-24 08:18 | Outpatient (AMB) | payer OTHER, SELFPAY ==
[2024-02-24 08:24] VITALS: BP 104/58; PULSE 77; O2SAT 97; BMI 29.4
--- NOTE | 2024-02-24 08:24 | MHC.PC.OV ---
Vital Signs 02/24/24 08:24 Height 5 ft 11 in Weight 211 lb BMI 29.4 BP 104/58 L Blood Pressure Location Lt brachial Position Sitting Pulse 77 Pulse Source Pulse Oximeter Pulse Oximetry (%) 97 Oxygen Delivery Method Room Air Intake Visit Reasons: Sinus Symptoms Allergies haloperidol [From HALDOL] Allergy (Intermediate, Verified 02/24/24 08:25) TONGUE SWELLING Medication List - Last Reconciled 02/24/24 by Sherri Zepeda MD albuterol sulfate 90 mcg/actuation (Ventolin HFA) 2 puffs inhalation Q6H PRN carboxymethylcellulose sodium 1% (Artificial Tears (carboxymethylcellulose)) 2 drps ophthalmic (eye) BID PRN fexofenadine (Karina Allergy) 180 mg PO DAILY fluoxetine 20 mg PO DAILY fluticasone propion-salmeterol 250-50 mcg/dose (Wixela Inhub) 1 inh inhalation BID fluticasone propionate 50 mcg/actuation (Flonase Allergy Relief) 2 sprays intranasal DAILY hydroxyzine pamoate 25 mg PO BID quetiapine 300 mg PO BEDTIME quetiapine 100 mg PO DAILY sildenafil (Viagra) 50 mg PO DAILY PRN Tobacco use date assessed: 02/24/24 Dental Screening Dental Screen Date: 02/24/24 Did you have a dental visit in the last 12 months?: Yes Did you have a dental problem in the last 6 months where you did not have access to dental care?: No Was dental information given to patient?: Patient has dentist HPI Sinus Symptoms HPI Details [id number] male smoker with bipolar disorder, history of CVA hypercholesterolemia coming in for an acute problem. Noted 20 lb weight gain. bilateral eye burning sensation, hx of lasik surgery 1 year ago- feels burning sensation. [facility] Medical History Overweight Colon cancer screening Annual physical exam Hyperlipidemia Hypertensive cardiovascular disease Carotid stenosis Ischemic stroke H/O: HTN (hypertension) Anxiety Depression Clavicle fracture Mood disorder Alcoholism Bipolar 1 disorder Surgical History History of carotid endarterectomy Hx of hand surgery Hx of hand surgery History of surgical procedure Family History Mother CVA (cerebral vascular accident) Maternal Grandmother Colon cancer Social History Household Members: Other Housing: Apartment Do you presently have visiting nurse or other home services: No Alcohol intake: current Alcohol intake frequency: 3 or more drinks per day Alcohol type: beer Comment: refusing alarm Patient Tobacco Use Status: Current everyday Tobacco user Tobacco use type: Cigarette Cigarette Packs Per Day: 0 Cigarettes Per Day: 5 Years Smoked: 27 e-Cigarette/Vaping Use: Never Used Second Hand Smoke Exposure: Yes service: No Current occupational status: employed Cognitive needs: No Hearing needs: No Vision needs: Yes Questionnaire PHQ-9 Over the last 2 weeks, how often have you been bothered by any of the following problems? 1. Little interest or pleasure in doing things: not at all 2. Feeling down, depressed, or hopeless: not at all 3. Trouble falling or staying asleep, or sleeping too much: not at all 4. Feeling tired or having little energy: not at all 5. Poor appetite or overeating: not at all 6. Feeling bad about yourself - or that you are a failure or have let yourself or your family down: not at all 7. Trouble concentrating on things, such as reading the newspaper or watching television: not at all 8. Moving or speaking so slowly that other people could have noticed. Or the opposite - being so fidgety or restless that you have been moving around a lot more than usual: not at all 9. Thoughts that you would be better off or of hurting yourself in some way: not at all Total score: 0 Depression Screening Interpretation: Negative Depression Screening Done: Yes Source: Developed by Drs. Cl Fuller, Faustina Carrasquillo, Chetan Saha and colleagues, with an educational ethan from [employer]. Thrive Questionnaire Date Thrive assessed: 02/24/24 I am a: Patient What is your living situation today?: I have a steady place to live Within the past 12 months, did the food you bought not last and you didn't have the money to get more?: Never true Within the past 12 months, did you worry whether your food would run out before you got money to buy more?: Never true Do you have trouble paying for medicines?: No Do you have trouble getting transportation to medical appointments?: No Do you have trouble paying your heating and electricity bill?: No Do you have trouble taking care of your child, family member or friend?: No Do you have trouble with day-to-day activities such as bathing, preparing meals, shopping, managing finances, etc.?: No Are you currently unemployed and looking for a job?: No Are you interested in more education?: No Currently or been in a relationship where the following occur: No concerns reported THRIVE Score: 0 AUDIT C Alcohol Use Questionnaire (AUDIT-C) 1. How often do you have a drink containing alcohol?: Never 3. How often do you have six or more drinks on one occasion?: Never Total Score: 0 TEX-7 AMB Questionnaire TEX-7 Date TEX - 7 assessed: 02/24/24 Feeling nervous, anxious, or on edge: 0 = Not at all Not being able to stop or control worryin = Not at all Worrying too much about different things: 0 = Not at all Trouble relaxin = Not at all Being so restless that it is hard to sit still: 0 = Not at all Becoming easily annoyed or irritable: 0 = Not at all Feeling afraid as if something awful might happen: 0 = Not at all Total TEX-7 score (0-4 normal; 5-9 mild; 10-14 moderate; 15-21 severe): 0 Source: Developed by Drs. Cl Fuller, Faustina Carrasquillo, Chetan Saha and colleagues, with an educational ethan from [employer]. Physical exam (Primary Care) Vital Signs: Last Vital Signs Pulse 77 02/24/24 08:24 BP 104/58 L 02/24/24 08:24 Pulse Ox 97 02/24/24 08:24 Oxygen Delivery Method Room Air 02/24/24 08:24 BMI result Body Mass Index 29.4 Tobacco/Smoking Status: Tobacco use Status Tobacco use date assessed 02/24/24 02/24/24 08:30 Patient Tobacco Use Status Current everyday Tobacco 02/24/24 08:30 Tobacco use type Cigarette 02/24/24 08:30 e-Cigarette/Vaping Use Never Used 02/24/24 08:30 PHQ-9: PHQ-9 Score PHQ-9: Total score 0 02/24/24 08:30 Depression Screening Interpretation: Negative Thrive Assessment: Date of Thrive Assessment Date Thrive assessed 02/24/24 02/24/24 08:30 Currently or been in a relationship where the following occur: No concerns reported Const General: alert; No acute distress Eyes Conjunctivae: conjunctivae normal Resp Auscultation: clear to auscultation bilaterally Cardio Rate: regular rate Rhythm: regular rhythm GI Inspection: Yes normal to inspection Extrem General: Yes normal to inspection and No edema Assessment and Plan Assessment & Plan (1) Overweight (BMI 25.0-29.9): Code(s): E66.3 - Overweight Plan: Diet and exercise (2) Asthma: Code(s): J45.909 - Unspecified asthma, uncomplicated Plan: Presently on Ventolin inhaler as needed (3) Tobacco abuse: Code(s): Z72.0 - Tobacco use Plan: Patient is strongly advised to stop smoking (4) Bipolar 1 disorder: Comment: CHD Code(s): F31.9 - Bipolar disorder, unspecified Plan: Continue with counseling and therapy (5) Burning sensation of eye: Code(s): H57.89 - Other specified disorders of eye and adnexa (6) Nasal congestion: Code(s): R09.81 - Nasal congestion (7) Erectile dysfunction: Code(s): N52.9 - Male erectile dysfunction, unspecified Orders: Orders Complete Blood Count Auto Diff Today I10 - Essential (primary) hypertension Vitamin B12 and Folate Today I10 - Essential (primary) hypertension Comprehensive Met. Panel Today I10 - Essential (primary) hypertension Free T4 (Free Thyroxine) Today I10 - Essential (primary) hypertension Lipid Panel Today E78.00 - Pure hypercholesterolemia, unspecified, I10 - Essential (primary) hypertension Thyroid Stimulating Hormone Today I10 - Essential (primary) hypertension Prostate Specific Antigen Scr Today I10 - Essential (primary) hypertension HIV Ab/Ag Today I10 - Essential (primary) hypertension Referrals Ophthalmology Referral H57.89 - Other specified disorders of eye and adnexa Medications: New fluticasone propionate 50 mcg/actuation (Flonase Allergy Relief) administer into each nostril 2 sprays intranasal DAILY 16 grams 0RF R09.81 - Nasal congestion fexofenadine (Karina Allergy) 180 mg PO DAILY 90 tabs 0RF R09.81 - Nasal congestion fluticasone propion-salmeterol 250-50 mcg/dose (Wixela Inhub) 1 inh inhalation BID 60 ea 2RF J45.909 - Unspecified asthma, uncomplicated fluticasone propion-salmeterol 250-50 mcg/dose (Wixela Inhub) 1 inh inhalation BID 60 ea 2RF J45.909 - Unspecified asthma, uncomplicated carboxymethylcellulose sodium 1% (Artificial Tears (carboxymethylcellulose)) 2 drps ophthalmic (eye) BID PRN 15 mL 0RF dry eye(s) H57.89 - Other specified disorders of eye and adnexa sildenafil (Viagra) administer 30 minutes to 4 hours before activity 50 mg PO DAILY PRN 14 tabs 0RF sexual activity N52.9 - Male erectile dysfunction, unspecified fexofenadine (Karina Allergy) 180 mg PO DAILY 90 tabs 0RF R09.81 - Nasal congestion fluticasone propionate 50 mcg/actuation (Flonase Allergy Relief) administer into each nostril 2 sprays intranasal DAILY 16 grams 0RF R09.81 - Nasal congestion sildenafil (Viagra) administer 30 minutes to 4 hours before activity 50 mg PO DAILY PRN 14 tabs 0RF sexual activity N52.9 - Male erectile dysfunction, unspecified Coding Level of Care Code Est Pt Level 4 (49690) Diagnoses Overweight (BMI 25.0-29.9) E66.3 Asthma J45.909 Tobacco abuse Z72.0 Bipolar 1 disorder F31.9 Burning sensation of eye H57.89 Nasal congestion R09.81 Erectile dysfunction N52.9
== END 2024-02-24 09:31 | disposition home or self-care (01) ==
PROVIDERS: PCP Internal Medicine; Visit Provider Internal Medicine
DX: E66.3 Overweight (principal); J45.909 Unspecified asthma, uncomplicated; Z72.0 Tobacco use; F31.9 Bipolar disorder, unspecified; H57.89 Other specified disorders of eye and adnexa; R09.81 Nasal congestion; N52.9 Male erectile dysfunction, unspecified

== ENCOUNTER 2024-04-24 08:11 | Outpatient (REF) | payer OTHER, SELFPAY ==
--- NOTE | ~2024-04-24 | US_ITS ---
EXAMINATION: US EXTRACRANIAL CAROTID DUPLEX, BILATERAL CLINICAL INFORMATION: Carotid stenosis. COMPARISON: 06/08/2022 TECHNIQUE: Real-time ultrasound and Doppler techniques (integrating B-mode 2-D vascular images, Doppler spectral analysis and color-flow Doppler imaging) were utilized to interrogate the extracranial carotid arteries, the vertebral arteries and proximal subclavian arteries bilaterally. The degree of stenosis is determined by criteria similar to NASCET. FINDINGS: Right Side: 1. There is mild atherosclerotic plaque seen in the bifurcation/proximal ICA region. 2. The common carotid artery PSV proximally is 82 cm/s and distally 79 cm/s. 3. The proximal internal carotid artery velocities are 109 cm/s systolic and 45 cm/s diastolic. 4. The proximal external carotid artery PSV is 133 cm/s. 5. The vertebral artery shows antegrade flow. 6. The subclavian artery waveforms are normal. Left Side: 1. There is mild atherosclerotic plaque seen in the bifurcation/proximal ICA region. 2. The common carotid artery PSV proximally is 137 cm/s and distally 77 cm/s. 3. The proximal internal carotid artery velocities are 107 cm/s systolic and 48 cm/s diastolic. 4. The proximal external carotid artery PSV is 109 cm/s. 5. The vertebral artery shows antegrade flow. 6. The subclavian artery waveforms are normal. US/US carotid duplex BI IMPRESSION: 1. Right: Minimal, non-hemodynamically significant stenosis of the proximal right internal carotid artery corresponding to a 0-49% stenosis by velocity criteria. 2. Left: Minimal, non-hemodynamically significant stenosis of the proximal left internal carotid artery corresponding to a 0-49% stenosis by velocity criteria. 3. There is no change in the category severity of disease when compared to the previous study dated 06/08/2022. Electronically signed by: Andrews Rush MD 04/27/2024 11:53 AM EST
== END 2024-04-24 08:12 | disposition home or self-care (01) ==
LOC: HO.US 08:11
PROVIDERS: PCP Internal Medicine; Visit Provider Surgery Vascular Surgery
DX: I65.23 Occlusion and stenosis of bilateral carotid arteries (principal)
CPT/HCPCS: 93880

== ENCOUNTER 2024-05-09 13:32 | Outpatient (AMB) | payer OTHER, SELFPAY ==
--- NOTE | 2024-05-09 13:40 | A.OFFVIS_ITS ---
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 We had done his left carotid endarterectomy nearly 4 years ago. He reports no significant difficulties no issues at the current time. He has had no interval changes. Now presents for surveillance follow-up with noninvasive testing [facility] Medical History Overweight Colon cancer screening Annual physical exam Hyperlipidemia Hypertensive cardiovascular disease Carotid stenosis Ischemic stroke H/O: HTN (hypertension) Anxiety Depression Clavicle fracture Mood disorder Alcoholism Bipolar 1 disorder Surgical History History of carotid endarterectomy Hx of hand surgery Hx of hand surgery History of surgical procedure Family History Mother CVA (cerebral vascular accident) Maternal Grandmother Colon cancer Social History Household Members: Other Housing: Apartment Do you presently have visiting nurse or other home services: No Alcohol intake: current Alcohol intake frequency: 3 or more drinks per day Alcohol type: beer Comment: refusing alarm Patient Tobacco Use Status: Current everyday Tobacco user Tobacco use type: Cigarette Cigarette Packs Per Day: 0 Cigarettes Per Day: 5 Years Smoked: 27 e-Cigarette/Vaping Use: Never Used Second Hand Smoke Exposure: Yes service: No Current occupational status: employed Cognitive needs: No Hearing needs: No Vision needs: Yes Review of Systems Const All systems reviewed & are unremarkable except as noted in HPI and below Denies chills, Denies fatigue, Denies fever(s), Denies weight gain and Denies weight loss ENT Reports Normal hearing present and Denies dizziness Card Denies chest pain, Denies leg edema, Denies lightheadedness, Denies palpitations, Denies dyspnea on exertion, Denies orthopnea and Denies other Resp Denies cough and Denies dyspnea on exertion GI Denies hematochezia and Denies change in stool character Musc Denies abnormal gait, Denies muscle weakness, Denies numbness, Denies radiating pain into limb and Denies tingling Skin/Breast Denies skin ulcer and Denies wounds Neuro Reports Normal hearing present, Denies abnormal gait, Denies dizziness, Denies numbness and Denies tingling Psych Reports no additional complaints Endo Denies fatigue and Denies palpitations Physical Exam Vital Signs: Last Vital Signs BP 112/58 L 05/09/24 13:45 Const General: cooperative, healthy appearing and comfortable Orientation/consciousness: oriented to person, oriented to place and oriented to time HEENT Head: Yes normal to inspection Neck Neck: Yes normal visual inspection Carotids: no bruits Chest Chest palpation & inspection: normal inspection of the chest Resp Effort & Inspection: normal respiratory effort and able to speak in complete sentences Auscultation: clear to auscultation bilaterally, no crackles, no rales, no rhonchi and no wheezes Cardio Rate: regular rate Rhythm: regular rhythm Heart sounds: S1 normal heart sound present and S2 normal heart sound present Bruits: no carotid bruits Peripheral pulses: Peripheral pulses 2+ throughout GI Inspection: Yes normal to inspection Skin Wounds: no wounds Hair: normal Neuro General: oriented to person, oriented to place and oriented to time Cranial nerves: Yes CN's II-XII intact bilaterally and Yes Normal hearing present Cognition (Neuro): normal cognition Motor exam (neuro): 5/5 motor strength present throughout Extrem Other: venous exam: No significant superficial varicosities or spider telangiectasias, minimal edema General: No clubbing, No cyanosis and No edema Psych Appearance: grossly normal Mental Status: mental status grossly normal Speech and movement: Normal speech and movement present Results Reviewed Results Reviewed: Noninvasive carotid testing dated 04/24/2024 demonstrates bilateral 0-49% stenosis Assessment & Plan Assessment & Plan (1) Carotid stenosis: Comment: 06/21/2020 - left carotid endarterectomy Code(s): I65.29 - Occlusion and stenosis of unspecified carotid artery Category: Medical Qualifiers: Laterality: bilateral Qualified Code(s): I65.23 - Occlusion and stenosis of bilateral carotid arteries Plan: In short patient has asymptomatic carotid disease. We have reviewed signs and symptoms of a stroke. We also discussed risk factor modification inclusive a healthy diet low in cholesterol. The patient will follow up with us with surveillance ultrasound of the carotids 1 year. Should there be any changes or signs or symptoms of a stroke we will be happy to see them back sooner. Thank you for allowing us to participate in this patient's care. This patient has atherosclerotic cardiovascular disease and may benefit from a high-intensity statin based on the 2019 ACC and aha guidelines. Once on a high-intensity statin would monitor LFTs and renal function. In addition I have requested that the patient start aspirin as well. If there are any questions or concerns please do not hesitate to contact us. Orders: Orders US carotid duplex BI 1 Year I65.23 - Occlusion and stenosis of bilateral carotid arteries Coding Level of Care Code Est Pt Level 4 (04307) Complex EM visit Add On G2211 Diagnoses Bilateral carotid artery stenosis I65.23 Laterality: bilateral
[2024-05-09 13:42] VITALS: BP 128/60
[2024-05-09 13:45] VITALS: BP 112/58
== END 2024-05-09 14:52 | disposition home or self-care (01) ==
PROVIDERS: PCP Internal Medicine; Visit Provider Surgery Vascular Surgery
DX: I65.23 Occlusion and stenosis of bilateral carotid arteries (principal)
CPT/HCPCS: 99214; G2211

== ENCOUNTER → 2024-05-09 13:32 | Outpatient (BNVA) | payer OTHER, SELFPAY | PROVIDERS: PCP Internal Medicine; Visit Provider Surgery Vascular Surgery | DX: I65.23 Occlusion and stenosis of bilateral carotid arteries (principal) | CPT/HCPCS: 99212 ==

== ENCOUNTER 2024-08-14 08:50 | Outpatient (AMB) | payer OTHER, SELFPAY ==
--- NOTE | 2024-08-14 09:10 | A.OFFPC_ITS ---
Vital Signs 08/14/24 09:12 Height 5 ft 11 in Weight 217 lb 2 oz BMI 30.3 BP 120/60 Blood Pressure Location Lt brachial Position Sitting Pulse 92 Pulse Source Pulse Oximeter Temp 97.3 F Temp Source Temporal Artery Scan Pulse Oximetry (%) 97 Oxygen Delivery Method Room Air Intake Visit Reasons: severe sinuses/congestion Intake Note: Patient is here to follow up on Sever sinus pressure with eyes burning, and congestion. 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 Accompanied by: Self / Same As Patient Allergies haloperidol [From HALDOL] Allergy (Intermediate, Verified 08/14/24 09:12) TONGUE SWELLING Tobacco use date assessed: 08/14/24 Dental Screening Dental Screen Date: 08/14/24 Did you have a dental visit in the last 12 months?: Yes Did you have a dental problem in the last 6 months where you did not have access to dental care?: No Was dental information given to patient?: Patient has dentist HPI severe sinuses/congestion HPI Details Patient is a 54-year-old male with significant past medical history of asthma, hypertension, CVA, carotid stenosis, and smoker patient is presenting today with complaints of respiratory symptoms Reports that he has been having a sinus infection for [address] Zepeda prescribed annette without any relief Reports that he is down to 3 cigarettes/day now Reports that he could feel the pressure on his forehead to the point that it is affecting his eyes Reports that at night he has to breath through his mouth Reports that his eyes are burning-reports that he had dry eyes since he did the lasiks surgery Reports using his inhalers and nose spray without any relief Lungs are clear on auscultation. Nasal erythematous with boggy turbinates +frontal and maxillary sinus pressure PFSH Medical History Overweight Colon cancer screening Annual physical exam Hyperlipidemia Hypertensive cardiovascular disease Carotid stenosis Ischemic stroke H/O: HTN (hypertension) Anxiety Depression Clavicle fracture Mood disorder Alcoholism Bipolar 1 disorder Surgical History History of carotid endarterectomy Hx of hand surgery Hx of hand surgery History of surgical procedure Family History Mother CVA (cerebral vascular accident) Maternal Grandmother Colon cancer Social History Household Members: Other Housing: Apartment Do you presently have visiting nurse or other home services: No Alcohol intake: current Alcohol intake frequency: 3 or more drinks per day Alcohol type: beer Comment: refusing alarm Patient Tobacco Use Status: Current everyday Tobacco user Tobacco use type: Cigarette Cigarette Packs Per Day: 0.5 Cigarettes Per Day: 3 Years Smoked: 27 e-Cigarette/Vaping Use: Never Used Second Hand Smoke Exposure: Yes service: No Current occupational status: employed Cognitive needs: No Hearing needs: No Vision needs: Yes Questionnaire PHQ-9 Over the last 2 weeks, how often have you been bothered by any of the following problems? 1. Little interest or pleasure in doing things: not at all 2. Feeling down, depressed, or hopeless: not at all 3. Trouble falling or staying asleep, or sleeping too much: not at all 4. Feeling tired or having little energy: not at all 5. Poor appetite or overeating: not at all 6. Feeling bad about yourself - or that you are a failure or have let yourself or your family down: not at all 7. Trouble concentrating on things, such as reading the newspaper or watching television: not at all 8. Moving or speaking so slowly that other people could have noticed. Or the opposite - being so fidgety or restless that you have been moving around a lot more than usual: not at all 9. Thoughts that you would be better off or of hurting yourself in some way: not at all Total score: 0 Depression Screening Interpretation: Negative Depression Screening Done: Yes 59148 - PHQ-9 Billing: Yes Source: Developed by Drs. Cl Fuller, Faustina Carrasquillo, Chetan Saha and colleagues, with an educational ethan from [employer]. Thrive Questionnaire Date Thrive assessed: 08/14/24 I am a: Patient What is your living situation today?: I have a steady place to live Within the past 12 months, did the food you bought not last and you didn't have the money to get more?: Never true Within the past 12 months, did you worry whether your food would run out before you got money to buy more?: Never true Do you have trouble paying for medicines?: No Do you have trouble getting transportation to medical appointments?: No Do you have trouble paying your heating and electricity bill?: No Do you have trouble taking care of your child, family member or friend?: No Do you have trouble with day-to-day activities such as bathing, preparing meals, shopping, managing finances, etc.?: No Are you currently unemployed and looking for a job?: No Are you interested in more education?: No Please select the resources that you would like help with: None Currently or been in a relationship where the following occur: No concerns reported THRIVE Score: 0 AUDIT C Alcohol Use Questionnaire (AUDIT-C) 1. How often do you have a drink containing alcohol?: Never Total Score: 0 TEX-7 AMB Questionnaire TEX-7 Date TEX - 7 assessed: 08/14/24 Feeling nervous, anxious, or on edge: 0 = Not at all Not being able to stop or control worryin = Not at all Worrying too much about different things: 0 = Not at all Trouble relaxin = Not at all Being so restless that it is hard to sit still: 0 = Not at all Becoming easily annoyed or irritable: 0 = Not at all Feeling afraid as if something awful might happen: 0 = Not at all Total TEX-7 score (0-4 normal; 5-9 mild; 10-14 moderate; 15-21 severe): 0 Source: Developed by Drs. Cl Fuller, Faustina Carrasquillo, Chetan Saha and colleagues, with an educational ethan from [employer]. TEX-7 Assessment Billing TEX-7 Assessment Tool: TEX-7 Assessment 74569 Review of Systems Const Details: Denies chills, Denies fatigue, Denies fever(s), + headache(s) and Denies weakness ENT: see HPI Cardiac Denies chest pain, Denies claudication, Denies leg edema, Denies lightheadedness, Denies palpitations, Denies dyspnea, Denies dyspnea on exertion, Denies orthopnea and Denies other (Loss of consciousness) Resp +recurrent cough, reports excessive phlegm production, Denies dyspnea, Denies dyspnea on exertion, Denies snoring and Denies wheezing Neuro Denies Abnormal speech present Physical exam (Primary Care) Vital Signs: Last Vital Signs Temp 97.3 F 08/14/24 09:12 Oxygen Delivery Method Room Air 08/14/24 09:12 BMI result Body Mass Index 30.3 Tobacco/Smoking Status: Tobacco use Status Tobacco use date assessed 02/24/24 02/24/24 08:30 Patient Tobacco Use Status Current everyday Tobacco 02/24/24 08:30 Tobacco use type Cigarette 02/24/24 08:30 e-Cigarette/Vaping Use Never Used 02/24/24 08:30 Depression Screening Interpretation: Negative Thrive Assessment: Date of Thrive Assessment Date Thrive assessed 02/24/24 02/24/24 08:30 Currently or been in a relationship where the following occur: No concerns reported Const General: healthy appearing, no acute distress, alert and awake Nutritional Appearance: well nourished Orientation/consciousness: oriented to person, oriented to place and oriented to time HENMT Ears: TM's normal bilaterally General nose exam: Abnormal mucous membranes and turbinates present boggy and erythematous Face and sinus: Yes sinus tenderness (frontal and bilateral maxillary) Eyes Alignment and Position: position abnormal Periorbital: periorbital findings abnormal (puffiness) bilateral Conjunctivae: conjunctivae normal Sclerae: sclerae normal Pupils: Equal, round and reactive pupils present Neck Neck: Yes no lymphadenopathy and Yes no JVD Thyroid: Thyroid normal Carotids: no bruits Resp Effort & Inspection: normal respiratory effort and not tachypneic Auscultation: no crackles, no rales, no rhonchi and no wheezes Cardio Rate: regular rate Rhythm: regular rhythm Heart sounds: no murmurs and normal S1 and S2 GI Palpation (GI): Soft to palpation, nontender, no hepatomegaly and no splenomegaly Auscultation: normal bowel sounds Skin General skin exam: no rashes or lesions noted and dry skin Neuro General: oriented to person, oriented to place and oriented to time Cranial nerves: Yes Equal, round and reactive pupils present Speech: No Abnormal speech present Gait exam (Neuro): Normal gait present Motor exam (neuro): no tremor noted Extrem Right upper extremity: full ROM Left upper extremity: full ROM Right lower extremity: full ROM; no edema Left lower extremity: full ROM; no edema Psych Mental Status: mental status grossly normal Speech and movement: Normal speech and movement present Affect: normal affect Attitude: cooperative Thought process: Normal thought process present Coding Level of Care Code Est Pt Level 3 (28910) Diagnoses Asthma, unspecified asthma severity, unspecified whether complicated, unspecified whether persistent J45.909 Asthma severity: unspecified severity Asthma persistence: unspecified Asthma complication type: unspecified Rhinosinusitis J32.9 Additional Codes PHQ-9 - 98125 - PHQ-9 Billing: Yes ([id number]) TEX-7 Assessment Billing - TEX-7 Assessment Tool: TEX-7 Assessment [id number] ([id number]) Time Spent (min) 31 Assessment & Plan Assessment & Plan (1) Asthma: Code(s): J45.909 - Unspecified asthma, uncomplicated Category: Medical Qualifiers: Asthma severity: unspecified severity Asthma persistence: unspecified Asthma complication type: unspecified Qualified Code(s): J45.909 - Unspecified asthma, uncomplicated Plan: Lifestyle modifications like smoking cessation. Wear a mask when around irritants, fumes, or particulate matter (e.g., painting, lawn mowing). Increase humidification at home, especially in the winter. Annual flu shots and the pneumonia shot can mitigate exacerbation. Increase fluids if not contraindicated because of heart failure. continue albuterol sulfate 90 mcg/actuation 2 puffs inh q6H PRN, fluticasone propion-salmeterol 250-50 mcg/dose 1 inh BID (2) Rhinosinusitis: Code(s): J32.9 - Chronic sinusitis, unspecified Category: Medical Plan: Limit exposure to allergens Air purifiers and dust filters Air conditioner in house, especially where sleeping Augmention BIDX 10 days and prednisone tapered ordered continue flonase inhaler 2 spray daily, continue otc antihistamine Medications: New amoxicillin-pot clavulanate 875-125 mg 1 tab PO BID 10 days 20 tabs 0RF J32.9 - Chronic sinusitis, unspecified prednisone see taper instructions 4 tabs x2 days, 3 tabs x2 days, 2 tabs x 2 days, 1 tab x2 days=20 tabs x 8 days 10 mg PO DIRECTED 20 tabs 0RF J32.9 - Chronic sinusitis, unspecified, J45.909 - Unspecified asthma, uncomplicated
[2024-08-14 09:12] VITALS: BP 120/60; PULSE 92; TEMP 36.3; O2SAT 97; BMI 30.3
--- OUTSIDE RECORDS SUMMARY | 2024-08-14 09:13 | XMS_ITS | Encounter Summary ---
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 CONVERSIONS Dental, Provider, DDS Social History Tobacco Use Types Packs/Day Years Used Date Smoking Tobacco: Never Assessed Sex and Gender Information Value Date Recorded Sex Assigned at Male 03/30/2022 10:18 AM EDT Legal Sex Male 10:18 AM EDT Gender Identity Male 03/30/2022 10:18 AM EDT Sexual Orientation Don't know 03/30/2022 10 :18 AM EDT documented as of this encounter Plan of Treatment Upcoming Encounters Date Type Department Care Team (Late st Contact Info) Description 08/18/2024 9:00 AM EDT Office Visit [facility] [address] [place] [address] Patrick Cooneyaris [address] [place] [address] documented as of this encounter Visit Diagnoses Not on filedocumented in this encounter
--- OUTSIDE RECORDS SUMMARY | 2024-08-14 09:13 | XMS_ITS | Clinical Summary ---
Author Organization [employer] Address [address] [place] [address] [address] [place] [address] Care Team Providers Care Dental Secretary Name Role Phone Unavailable Primary Care Provider Unavailabl e Allergies Active Allergy Reactions Criticality Noted Date Comments Haloperidol 04/20/2018 tongue swelling Medications FLUoxetine (PROzac) 40 MG capsule Take 40 mg by mouth Once per day. 09/09/2023 Active hydrOXYzine pamoate (Vistaril) 25 MG capsule Take one (1) capsule by mouth three times a day, as needed Active ibuprofen 600 MG tablet TAKE 1 TABLET BY MOUTH two (2) times a day NEEDED FOR PAIN 09/09/2023 Active naloxone (Narcan) 4 mg/0.1 mL nasal spray SPRAY ONCE INTO either NOSTRIL DIRECTED. call 911. IF no response IN 2 TO 3 MINUTES, REPEAT DOSE IN other NOSTRIL 09/09/2023 Active Vivitrol injection 07/08/2023 Active naltrexone (Depade) 50 MG tablet TAKE 1 TABLET BY MOUTH ONCE DAILY NEEDED FOR cravings 09/09/2023 Active QUEtiapine (SEROquel) 300 MG tablet Take 300 mg by mouth at bedtime. 09/09/2023 Active Active Problems Problem Noted Date Diagnosed Date Advanced periodontitis 05/12/2024 Dental calculus 09/24/2023 Periodontal disease 09/24/2023 Gingival bleeding 09/24/2023 Encounters Date Type Department Care Team Description 07/04/2024 9:00 AM EST Office Visit [facility] [address] [place] [address] Caity Cooney Advanced periodontitis (Primary Dx); Dental calculus from Last 3 Months Social History Tobacco Use Types Packs/Day Years Used Date Smoking Tobacco: Every Day Cigarettes Smokeless Tobacco: Never Tobacco Cessation:Ready to Q uit: Not Asked; Counseling Given: Not Answered Sex and Gender Information Value Date Recorded Sex Assigned at Male 03/30/2022 10:18 AM EDT Legal Sex Male 10:18 AM EDT Gender Identity Male 03/30/2022 10:18 AM EDT Sexual Orientation Don't know 03/30/2022 10 :18 AM EDT Last Filed Vital Signs Vital Sign Reading Time Taken Comments Blood Pressure 122/76 07/04/2024 8:30 AM EST Pulse 72 09/24/2023 1:00 PM EDT Temperature - - Respiratory Rate - - Oxygen Saturation - - Inhaled Oxygen Concentration - - Weight - - Height - - Body Mass Index - - Plan of Treatment Upcoming Encounters Date Type Department Care Team (Late st Contact Info) Description 08/18/2024 9:00 AM EDT Office Visit [facility] [address] [place] [address] Eros, Caity [address] [place] [address] Health Maintenance Due Date Last Done Comments CT Colonography 1971 Colonoscopy 1971 Colorectal Cancer Screening 1971 Depression Screening 1971 FIT DNA/Cologuard 1971 FIT 1971 FOBT 1971 HIV Screening 1971 Lipid Panel 1971 SDOH Screening 1971 Sigmoidoscopy 1971 Alcohol/Substance Use Screening 1983 Hepatitis C Screening 08/07/1989 DTaP/Tdap/Td Vaccines (1 - Tdap) 08/07/1990 Hepatitis B Vaccines (1 of 3 - 19+ 3-dose series) 08/07/1990 Pneumococcal Vaccine: 50+ Years (1 of 2 - PCV) 08/07/1990 Zoster Vaccines (1 of 2) 08/07/2021 COVID-19 Vaccine (1 - 2023- season) 2024 Influenza Vaccine (#1) 2024 Dental X-Ray: Full Mouth 01/31/2024 01/29/2021, 04/01 Dental Oral Exam 08/10/2024 02/10/2024, 05/2020, 04/20/2018 Dental Prophylaxis 11/11/2024 05/12/2024, 0 09/24/2023, 01/29/2021 Dental X-Ray: Bitewings 02/10/2025 02/10/20 24, 09/24/2023, 01/29/2021, Additional history exists Tobacco Screening 07/04/2025 07/04/2024 RSV Patients and Patients Aged 60 years or older (1 - 1-dose 75+ series) 08/07/2046 HIB Vaccines Aged Out No longer eligi ble based on patient's age to complete this topic HPV Vaccines Aged Out No longer eligi ble based on patient's age to complete this topic Hepatitis A Vaccines Aged Out No long er eligible based on patient's age to complete this topic IPV Vaccines Aged Out No longer eligi ble based on patient's age to complete this topic Meningococcal Vaccine Aged Out No messi leon eligible based on patient's age to complete this topic RSV under 20 months Aged Out No longe r eligible based on patient's age to complete this topic Rotavirus Vaccines Aged Out No longer eligible based on patient's age to complete this topic Procedures Procedure Name Priority Date/Time Associated Diagnosis Comments CASE PRESENTATION, DETAILED AND EXTENSIVE TREATMENT PLANNING Routine 07/04/2024 9:00 AM EST Advanced periodontitis Dental calculus ORAL HYGIENE INSTRUCTIONS Routine 07/04/2024 9:00 AM EST Advanced periodontitis Dental calculus LL PERIODONTAL SCALING AND ROOT PLANING - 4 OR MORE TEETH PER QUADRANT Routine 07/04/2024 9:00 AM EST Advanced periodontitis Dental calculus PROPHYLAXIS - ADULT Routine 05/12/2024 1 :00 PM EST Dental calculus Advanced periodontitis BITEWING - SINGLE RADIOGRAPHIC IMAGE Routine 02/10/2024 2:30 PM EDT Encounter for dental examination Dental calculus Periodontal disease PERIODIC ORAL EVALUATION - ESTABLISHED PATIENT Routine 02/10/2024 2:30 PM EDT Encounter for dental examination Dental calculus Periodontal disease INTRAORAL - COMPLETE SERIES OF RADIOGRAPHIC IMAGES Routine 01/29/2021 12:00 AM EDT from Last 3 Months or Most Recently Relevant to Health Maintenance Insurance [place] [facility] [place] AD[place] Member Subscriber Plan / Payer (Ef fective 2011-) Name:Enzo Jessica Relation to Subscriber:Self Name:Enzo Jessica Payer ID:Not on file Group ID:Not on file Type:Not on file Address: [place] [phone]
--- OUTSIDE RECORDS SUMMARY | 2024-08-14 09:13 | XMS_ITS | Clinical Summary ---
Author Organization [facility] [employer] [facility] Address [address] [place] [address] Care Team Providers Care Lower In Supervisor Name Role Phone Unavailable Primary Care Provider Unavailabl e Social History Tobacco Use Types Packs/Day Years Used Date Smoking Tobacco: Never Assessed Sex and Gender Information Value Date Recorded Sex Assigned at Not on file Legal Sex Male 1:47 AM EST Gender Identity Not on file Sexual Orientation Not on file Plan of Treatment Health Maintenance Due Date Last Done Comments DTaP,Tdap,and Td Vaccines (1 - Tdap) 08/07/1990 Hepatitis B Vaccines (1 of 3 - 19+ 3-dose series) 08/07/1990 Pneumococcal Vaccine: 50+ Ye ars (1 of 1 - PCV) 08/07/2021 Zoster Vaccines (1 of 2) 08/07/2021 Cholesterol Screening (Lipid Panel) 05/03/2022 Colorectal Cancer Screening: Colonoscopy 05/03/2022 Depression Screening 05/03/2022 HIV Screening 05/03/2022 Hepatitis C Screening 05/03/2022 Social Influencers of Health Screening 05/03/2022 COVID-19 Vaccine ( - 2023-2 5 season) 2024 Influenza Vaccine (#1) 2024 HIB Vaccines Aged Out No longer eligi [...] on patient's age to complete this topic MMR Vaccines Aged Out No longer eligi ble based on patient's age to complete this topic Meningococcal ACWY Vaccine Aged Out N o longer eligible based on patient's age to complete this topic Meningococcal B Vacine Aged Out No lo nger eligible based on patient's age to complete this topic Pneumococcal Vaccine: Pediat rics (0 to 5 Years) and At-Risk Patients (6 to 64 Years) Aged Out No longer eligible b ased on patient's age to complete this topic RSV Immunization Patients Un daniel 20 months Aged Out No longer eligible b ased on patient's age to complete this topic Varicella Vaccines Aged Out No longer eligible based on patient's age to complete this topic
== END 2024-08-14 09:40 | disposition home or self-care (01) ==
LOC: HO.HMCH 08:50
PROVIDERS: PCP Internal Medicine
DX: J45.909 Unspecified asthma, uncomplicated (principal); J32.9 Chronic sinusitis, unspecified

== ENCOUNTER → 2024-08-14 08:50 | Outpatient (BNVA) | payer OTHER, SELFPAY | PROVIDERS: PCP Internal Medicine | DX: J45.909 Unspecified asthma, uncomplicated (principal); J32.9 Chronic sinusitis, unspecified | CPT/HCPCS: 96127; 99212 ==

== ENCOUNTER 2024-09-06 10:14 | Outpatient (AMB) | payer OTHER, SELFPAY ==
[2024-09-06 10:18] VITALS: BP 110/62; PULSE 87; TEMP 36.3; O2SAT 96; BMI 30.5
--- NOTE | 2024-09-06 10:18 | MHC.PC.OV ---
Vital Signs 09/06/24 10:18 Height 5 ft 11 in Weight 218 lb 8 oz BMI 30.5 BP 110/62 Blood Pressure Location Lt brachial Position Sitting Pulse 87 Pulse Source Pulse Oximeter Temp 97.3 F Temp Source Temporal Artery Scan Pulse Oximetry (%) 96 Oxygen Delivery Method Room Air Intake Visit Reasons: annual exam Elementary [employer] Director Required: No Switch Engineer: Not Required per policy Accompanied by: Self / Same As Patient Allergies haloperidol [From HALDOL] Allergy (Intermediate, Verified 09/06/24 10:19) TONGUE SWELLING Medication List - Last Reconciled 09/06/24 by Sherri Zepeda MD albuterol sulfate 90 mcg/actuation (Ventolin HFA) 2 puffs inhalation Q6H PRN carboxymethylcellulose sodium 1% (Artificial Tears (carboxymethylcellulose)) 2 drps ophthalmic (eye) BID PRN fexofenadine (Karina Allergy) 180 mg PO DAILY fluoxetine 40 mg PO DAILY fluticasone propion-salmeterol 250-50 mcg/dose (Wixela Inhub) 1 inh inhalation BID fluticasone propionate 50 mcg/actuation (Flonase Allergy Relief) 2 sprays intranasal DAILY hydroxyzine pamoate 25 mg PO BID quetiapine 300 mg PO BEDTIME quetiapine 100 mg PO DAILY sildenafil (Viagra) 50 mg PO DAILY PRN Tobacco use date assessed: 08/14/24 Dental Screening Dental Screen Date: 08/14/24 [facility] Medical History (Updated 09/06/24 @ 11:22 by Sherri Zepeda MD) Colon cancer screening Annual physical exam Overweight Hyperlipidemia Hypertensive cardiovascular disease Carotid stenosis Ischemic stroke H/O: HTN (hypertension) Anxiety Depression Clavicle fracture Mood disorder Alcoholism Bipolar 1 disorder Surgical History History of carotid endarterectomy Hx of hand surgery Hx of hand surgery History of surgical procedure Family History Mother CVA (cerebral vascular accident) Maternal Grandmother Colon cancer Social History (Updated 09/06/24 @ 11:27 by Sherri Zepeda MD) Household Members: Other Housing: Apartment Do you presently have visiting nurse or other home services: No Alcohol intake: current Alcohol intake frequency: 3 or more drinks per day Alcohol type: beer Comment: refusing quit 12/2024 Patient Tobacco Use Status: Current everyday Tobacco user Tobacco use type: Cigarette Cigarette Packs Per Day: 0.5 Cigarettes Per Day: 4 Years Smoked: 27 e-Cigarette/Vaping Use: Never Used Second Hand Smoke Exposure: Yes service: No Current occupational status: employed Cognitive needs: No Hearing needs: No Vision needs: Yes Questionnaire PHQ-9 Over the last 2 weeks, how often have you been bothered by any of the following problems? 1. Little interest or pleasure in doing things: several days 2. Feeling down, depressed, or hopeless: several days 3. Trouble falling or staying asleep, or sleeping too much: not at all 4. Feeling tired or having little energy: not at all 5. Poor appetite or overeating: not at all 6. Feeling bad about yourself - or that you are a failure or have let yourself or your family down: not at all 7. Trouble concentrating on things, such as reading the newspaper or watching television: not at all 8. Moving or speaking so slowly that other people could have noticed. Or the opposite - being so fidgety or restless that you have been moving around a lot more than usual: not at all 9. Thoughts that you would be better off or of hurting yourself in some way: not at all Total score: 2 Depression Screening Interpretation: Positive Depression Screening Done: Yes 67417 - PHQ-9 Billing: Yes Source: Developed by Drs. Cl Fuller, Faustina Carrasquillo, Chetan Saha and colleagues, with an educational ethan from [employer]. Thrive Questionnaire Date Thrive assessed: 08/14/24 I am a: Patient What is your living situation today?: I have a steady place to live Within the past 12 months, did the food you bought not last and you didn't have the money to get more?: Never true Within the past 12 months, did you worry whether your food would run out before you got money to buy more?: Sometimes True Do you have trouble paying for medicines?: Yes Do you have trouble getting transportation to medical appointments?: No Do you have trouble paying your heating and electricity bill?: No Do you have trouble taking care of your child, family member or friend?: No Do you have trouble with day-to-day activities such as bathing, preparing meals, shopping, managing finances, etc.?: No Are you currently unemployed and looking for a job?: No Are you interested in more education?: No Please select the resources that you would like help with: Housing/Nursing Home Currently or been in a relationship where the following occur: No concerns reported THRIVE Score: 1 AUDIT C Alcohol Use Questionnaire (AUDIT-C) 1. How often do you have a drink containing alcohol?: Never Total Score: 0 TEX-7 AMB Questionnaire TEX-7 Date TEX - 7 assessed: 08/14/24 Feeling nervous, anxious, or on edge: 1 = Several days Not being able to stop or control worryin = Several days Worrying too much about different things: 1 = Several days Trouble relaxin = Several days Being so restless that it is hard to sit still: 1 = Several days Becoming easily annoyed or irritable: 0 = Not at all Feeling afraid as if something awful might happen: 0 = Not at all Total TEX-7 score (0-4 normal; 5-9 mild; 10-14 moderate; 15-21 severe): 5 Source: Developed by Drs. Cl Fuller, Faustina Carrasquillo, Chetan Saha and colleagues, with an educational ethan from [employer]. TEX-7 Assessment Billing TEX-7 Assessment Tool: TEX-7 Assessment 85419 Review of Systems Const Denies poor appetite and Denies weakness Eyes Denies no additional complaints ENT Reports Normal hearing present, Denies dizziness, Denies nasal congestion, Denies tinnitus and Denies sore throat Card Denies chest pain, Denies syncope, Denies rapid heart rate and Denies dyspnea Resp Denies cough and Denies dyspnea GI Denies change in stool character, Reports constipation, Denies diarrhea, Denies nausea and Denies vomiting Denies dysuria and Denies urinary frequency Neuro Reports Normal hearing present, Denies confusion, Denies dizziness, Denies syncope and Denies weakness Psych Denies confusion Physical exam (Primary Care) Vital Signs: Last Vital Signs Temp 97.3 F 09/06/24 10:18 Pulse 87 09/06/24 10:18 BP 110/62 09/06/24 10:18 Pulse Ox 96 09/06/24 10:18 Oxygen Delivery Method Room Air 09/06/24 10:18 Care Plan Goal for BP management: rectal held - referred to Colon BMI result Body Mass Index 30.5 Tobacco/Smoking Status: Tobacco use Status Tobacco use date assessed 08/14/24 09/06/24 10:20 Patient Tobacco Use Status Current everyday Tobacco 09/06/24 11:27 Tobacco use type Cigarette 09/06/24 11:27 e-Cigarette/Vaping Use Never Used 09/06/24 11:27 PHQ-9: PHQ-9 Score PHQ-9: Total score 2 09/06/24 11:21 Depression Screening Interpretation: Positive Thrive Assessment: Date of Thrive Assessment Date Thrive assessed 08/14/24 09/06/24 10:20 Currently or been in a relationship where the following occur: No concerns reported Const General: No confusion Orientation/consciousness: No confusion HENMT Head: Yes normocephalic Ears: external ears normal and TM's normal bilaterally Face and sinus: Yes normal facial exam Mouth: moist mucous membranes Throat: Yes tonsils normal Eyes Conjunctivae: conjunctivae normal Pupils: Equal, round and reactive pupils present and Pupil accommodation reflex normal Direct Ophthalmoscopy: normal light reflex Neck Neck: No lymphadenopathy Thyroid: Thyroid normal Chest Chest palpation & inspection: normal inspection of the chest Resp Effort & Inspection: normal respiratory effort and no audible wheezes Auscultation: clear to auscultation bilaterally, no crackles, no wheezes and lung sounds not diminished Cardio Rate: regular rate Rhythm: regular rhythm Peripheral pulses: radial pulses present and dorsalis pedis present GI Palpation (GI): no masses Auscultation: normal bowel sounds and normoactive bowel sounds Rectal Exam - Male: Yes deferred Skin General skin exam: no rashes or lesions noted Rashes: no rashes Neuro General: No confusion Cranial nerves: Yes Equal, round and reactive pupils present and Yes Normal hearing present Cognition (Neuro): normal cognition Gait exam (Neuro): Normal gait present Motor exam (neuro): 5/5 motor strength present throughout Deep tendon reflexes (DTR's): Right brachioradialis reflex intensity grade: 2+, Left brachioradialis reflex intensity grade: 2+, Right patellar reflex intensity grade: 2+ and Left patellar reflex intensity grade: 2+ Extrem General: No edema Coding Level of Care Code Est Pt Prev Care 40-64y(53732) Diagnoses Annual physical exam Z00.00 History of CVA (cerebrovascular accident) Z86.73 Bilateral carotid artery stenosis I65.23 Laterality: bilateral Pure hypercholesterolemia E78.00 Hyperlipidemia type: pure hypercholesterolemia Tobacco abuse Z72.0 Hypertension I10 Asthma, unspecified asthma severity, unspecified whether complicated, unspecified whether persistent J45.909 Asthma complication type: unspecified Asthma persistence: unspecified Asthma severity: unspecified severity Colon cancer screening Z12.11 GERD (gastroesophageal reflux disease) K21.9 Obesity (BMI 30.0-34.9) E66.811 Additional Codes TEX-7 Assessment Billing - TEX-7 Assessment Tool: TEX-7 Assessment 76934 ([id number]) PHQ-9 - 77567 - PHQ-9 Billing: Yes ([id number]) Assessment & Plan Assessment & Plan (1) Annual physical exam: Code(s): Z00.00 - Encounter for general adult medical examination without abnormal findings Category: Medical Plan: Patient is advised to eat healthy, keep well hydrated, keep active and have adequate sleep. (2) History of CVA (cerebrovascular accident): Code(s): Z86.73 - Personal history of transient ischemic attack (TIA), and cerebral infarction without residual deficits Category: Medical Plan: Control the cholesterol, weight, blood pressure, patient is advised to be on aspirin (3) Carotid stenosis: Comment: 06/21/2020 - left carotid endarterectomy Code(s): I65.29 - Occlusion and stenosis of unspecified carotid artery Category: Medical Qualifiers: Laterality: bilateral Qualified Code(s): I65.23 - Occlusion and stenosis of bilateral carotid arteries Plan: Patient is under surveillance from the vascular surgeon March 2024 last carotid ultrasound 0-49% bilateral (4) Hyperlipidemia: Code(s): E78.5 - Hyperlipidemia, unspecified Category: Medical Qualifiers: Hyperlipidemia type: pure hypercholesterolemia Qualified Code(s): E78.00 - Pure hypercholesterolemia, unspecified Plan: Avoid fried foods, chicken skin, eggs, butter margarine, pastries and meat. Be it pork or beef they have a lot of cholesterol LDL goal of less than 70 and triglyceride of less than 150 (5) Tobacco abuse: Code(s): Z72.0 - Tobacco use Category: Medical Plan: Patient is strongly advised to stop smoking! (6) Hypertension: Code(s): I10 - Essential (primary) hypertension Category: Medical Plan: Decrease salt intake and exercise patient's blood pressure presently normal (7) Asthma: Code(s): J45.909 - Unspecified asthma, uncomplicated Category: Medical Qualifiers: Asthma complication type: unspecified Asthma persistence: unspecified Asthma severity: unspecified severity Qualified Code(s): J45.909 - Unspecified asthma, uncomplicated Plan: Stop smoking! (8) Colon cancer screening: Code(s): Z12.11 - Encounter for screening for malignant neoplasm of colon Category: Medical Plan: Patient is reminded about colonoscopy (9) GERD (gastroesophageal reflux disease): Code(s): K21.9 - Gastro-esophageal reflux disease without esophagitis Category: Medical (10) Obesity (BMI 30.0-34.9): Code(s): E66.811 - Obesity, class 1 Category: Medical Plan History of Present Illness The patient is a 54-year-old male presenting with a request for an annual physical examination and management of chronic conditions, including carotid artery disease. He underwent a carotid endarterectomy in May 2020 and reports sinus congestion and asthma management challenges. The patient reports episodes of chest discomfort, likely muscular in nature, and requires heartburn assessment. Monitoring of carotid ultrasounds in March 2024 indicated bilateral non-hemodynamic significant stenosis. Recent blood work showed anemia and thrombocytosis, with LDL cholesterol levels measured at 95 mg/dL. The patient also reports a history of bipolar disorder, asthma, and a reduction in smoking habits. He denies new symptoms or significant changes in his chronic conditions, emphasizing concerns for managing sinus congestion and asthma, and a need for medication adjustments. Health Maintenance - Aspirin therapy recommended for stroke prevention. - Continuous surveillance with carotid ultrasounds. - LDL cholesterol goal set to less than 70 mg/dL, and triglyceride levels to less than 150 mg/dL. - Strong advisement to cease smoking. - Colonoscopy for colon cancer screening recommended. - Discussion on diet modification to control gastroesophageal reflux symptoms. - Lung cancer screening with annual CT scans offered. - Acknowledged eight-month cessation of alcohol use. - Vaccination status for tetanus and pneumonia confirmed as up-to-date; advised to get shingles vaccine. - Discussed TB test requirement for entry to an adult care center. Social History - Former alcohol use, ceased 8 months ago. - Tobacco use: Reduced to four cigarettes per day, previously more frequent. - No current exercise routine; discussed the need for increased activity. - Reports hunger and weight gain as potentially linked to eating patterns. - No current housing concerns; does not live in a place with stairs. Review of Systems - Cardiovascular: Reports occasional chest discomfort. - Gastrointestinal: Reports heartburn; denies current use of heartburn medication. - Neurological: Denies new occurrences of CVA symptoms. - Respiratory: Reports sinus congestion, uses Wexela inhaler regularly. - Musculoskeletal: Denies pain in joints, reports muscular chest pain. - Psychiatric: Managed bipolar disorder, currently taking fluoxetine. - General: Reports weight gain, denies recent surgeries. Physical Exam General: Cooperative, healthy appearing, comfortable, no acute distress and well developed Orientation: Patient oriented x3 Limitations: No limitations Head: Normal to inspection Ears: Hearing grossly normal bilaterally Nose: Normal external nose present Face and sinus: Normal facial exam Eyes: Appearance normal, both eyes and all related structures Neck: Normal visual inspection and Yes full ROM Respiratory: Normal respiratory effort and able to speak in complete sentences. Clear to auscultation bilaterally Cardiovascular: Regular rate and rhythm. Normal S1 and S2 GI: Normal to inspection. Soft to palpation and nontender Skin: No rashes or lesions noted Neuro: Patient oriented x3 Extremities: Normal to inspection Results - Labs (January 2024): Anemia, thrombocytosis, LDL cholesterol at 95 mg/dL, blood sugar mildly elevated, creatinine at 1 mg/dL. - Carotid Ultrasound (March 2024): Bilateral non-hemodynamic significant stenosis (0-49%). Plan Management will continue to focus on ensuring optimal control of the patient's chronic medical conditions while providing robust preventive care. Ongoing surveillance through carotid ultrasounds remains a priority, alongside maintaining appropriate medication adherence, including hypertension control with regular monitoring. Cessation of tobacco use is fundamental for reducing cerebrovascular risks, and referral for smoking cessation support was reiterated. A colonoscopy was recommended alongside lung cancer screening for further preventive intervention. Incremental adjustments to the medication regimen included refills for Viagra and Flonase for symptomatic management. A prompt for obtaining routine bloodwork and a TB test aligns with continuous health monitoring, emphasizing strict adherence to fasting before laboratory evaluations. The patient was advised about the risks of sustaining current behaviors and encouraged towards integrating healthier lifestyle choices. Patient was informed and verbally consented to the use of an ambient scribe for clinic note documentation during this visit. Discussion Notes I discussed the importance of continuous aspirin use to mitigate stroke risk due to his prior CVA. We explored cholesterol management with a focus on achieving target LDL levels through lifestyle changes driven by diet modifications and cessation of smoking. Screening for colon cancer was underscored, offering insight into its preventative benefits for someone of his age group. Lung cancer risk was addressed, and I proposed annual CT scan screenings for early detection. The patient was counseled on the muscular nature of chest discomfort, with reassurance against cardiac issues. Smoking cessation remains a vital agenda item, with support mechanisms reiterated. I emphasized the significance of a TB test for [facility] center admission, reaffirming adherence to their requirements. The patient agreed with the recommended interventions, and I solicited commitment to reducing risk factors systematically. Patient Instructions - Continue taking aspirin as prescribed to prevent strokes. - Schedule and complete a colonoscopy for colon cancer prevention. - We strongly encourage you to quit smoking; consider seeking support from a smoking cessation program. - Monitor your diet to reduce LDL cholesterol levels below 70 mg/dL; aim for a heart-healthy diet. - Obtain an annual CT scan for lung cancer screening due to smoking history. - Refill and regularly use Flonase for sinus congestion relief. - Adhere to your medication regimen as prescribed, including refilled Viagra. - Schedule bloodwork and ensure fasting for accurate lab results. - Follow up for a TB test for program compliance. - Maintain regular follow-ups for managing chronic conditions and preventive screening tests. Orders: Orders T Spot TB Today Z72.0 - Tobacco use Referrals Lung Cancer Screening Referral Z72.0 - Tobacco use Gastroenterology Referral Z12.11 - Encounter for screening for malignant neoplasm of colon Medications: New aspirin (Adult Low Dose Aspirin) 81 mg PO DAILY 90 tabs 3RF Z12.11 - Encounter for screening for malignant neoplasm of colon
--- OUTSIDE RECORDS SUMMARY | 2024-09-06 11:33 | XMS_ITS | Clinical Summary ---
Author Organization [email or web address] Address [address] [place] [address] [address] [place] [address] Care Team Providers Care Social Media Strategist Name Role Phone Unavailable Primary Care Provider [...] Description 07/04/2024 9:00 AM EST Office Visit [facility]ULT [facility] [address] [place] [address] Caity Cooney Advanced periodontitis (Primary Dx); Dental [...] Care Team (Late st Contact Info) Description 10/09/2024 2:00 PM EDT Office Visit [facility]ULT [facility] [address] [place] [address] Eros, Caity [address] [place] [address] Health Maintenance Due Date Last Done Comments [...] Health Maintenance Insurance [facility]ICA[place] STAND ADULT [facility] MEDICAID STAND ADULT
--- OUTSIDE RECORDS SUMMARY | 2024-09-06 11:33 | XMS_ITS | Clinical Summary ---
Author Organization [facility] [employer] [facility] Address [address] [place] [address] Care Team Providers Care Owner Professional Engineer Name Role Phone Unavailable Primary Care Provider [...] age to complete this topic Meningococcal B Vaccine Aged Out No l onger eligible based on patient's age to complete [...]
--- OUTSIDE RECORDS SUMMARY | 2024-09-06 11:33 | XMS_ITS | Encounter Summary ---
Author Organization [facility] Address [address] [facility] [address] [place] [address] Care Team Providers Care Assistant Athletic Trainer Name Role Phone Unavailable Primary Care Provider Unavailabl e Encounter Details Date Type Department Care Team (Latest Contact Info) Description 01/29/2021 Abstract [facility] CONVERSIONS Dental, Provider, DDS Social History Tobacco [...] Description 10/09/2024 2:00 PM EDT Office Visit [facility] ADULT DENTAL [address] [place] [address] Patrick Cooneyaris [address] [place] [address] documented as of this encounter Visit Diagnoses Not on filedocumented in this encounter
== END 2024-09-06 11:41 | disposition home or self-care (01) ==
LOC: HO.HMCH 10:14
PROVIDERS: PCP Internal Medicine; Visit Provider Internal Medicine
DX: Z00.00 Encounter for general adult medical examination without abnormal findings (principal); Z86.73 Personal history of transient ischemic attack (TIA), and cerebral infarction without residual deficits; Z72.0 Tobacco use; I65.23 Occlusion and stenosis of bilateral carotid arteries; E78.00 Pure hypercholesterolemia, unspecified; E66.811 Obesity, class 1; Z68.30 Body mass index [BMI] 30.0-30.9, adult; I10 Essential (primary) hypertension; J45.909 Unspecified asthma, uncomplicated; Z12.11 Encounter for screening for malignant neoplasm of colon; K21.9 Gastro-esophageal reflux disease without esophagitis

== ENCOUNTER → 2024-09-06 10:14 | Outpatient (BNVA) | payer OTHER, SELFPAY | PROVIDERS: PCP Internal Medicine; Visit Provider Internal Medicine | DX: Z00.00 Encounter for general adult medical examination without abnormal findings (principal); I65.23 Occlusion and stenosis of bilateral carotid arteries; E78.00 Pure hypercholesterolemia, unspecified; I10 Essential (primary) hypertension; J45.909 Unspecified asthma, uncomplicated; K21.9 Gastro-esophageal reflux disease without esophagitis; E66.811 Obesity, class 1; F17.210 Nicotine dependence, cigarettes, uncomplicated; Z86.73 Personal history of transient ischemic attack (TIA), and cerebral infarction without residual deficits | CPT/HCPCS: 96127; 99396 ==

== ENCOUNTER 2024-10-04 08:34 | Outpatient (REF) | payer OTHER, SELFPAY ==
--- OUTSIDE RECORDS SUMMARY | 2024-10-04 08:49 | XMS_ITS | Clinical Summary ---
Author Organization [facility] Address [address] [place] [address] Care Team Providers Care Communications Systems Engineer Name Role Phone Unavailable Primary Care [...] - 2023-2 5 season) 2024 Influenza Vaccine (Season Ended) 2025 HIB Vaccines Aged Out No longer eligi [...]
--- OUTSIDE RECORDS SUMMARY | 2024-10-04 08:49 | XMS_ITS | Clinical Summary ---
Author Organization [facility] Address [address] [place] [address] [address] [place] [address] Care Team Providers Care Title I Instructional Assistant Name Role Phone Unavailable Primary Care Provider [...] 09/24/2023 Periodontal disease 09/24/2023 Gingival bleeding 09/24/2023 Social History Tobacco Use Types Packs/Day Years [...] Description 10/09/2024 2:00 PM EDT Office Visit [facility] ADULT [facility] [address] [place] [address] Eros, Caity [address] [place] [address] Health Maintenance Due Date Last Done Comments [...] of 2) 08/07/2021 COVID-19 Vaccine (1 - season) 2024 Influenza Vaccine (#1) 2024 Dental [...] Procedure Name Priority Date/Time Associated Diagnosis Comments PROPHYLAXIS - ADULT Routine 05/12/2024 1 :00 [...] Most Recently Relevant to Health Maintenance Insurance [facility] MEDICAID STAND ADULT [facility] MEDICAID STAND ADULT
--- OUTSIDE RECORDS SUMMARY | 2024-10-04 08:49 | XMS_ITS | Encounter Summary ---
Author Organization [facility] Address [address] [place] [address] Care Team Providers Care Consulting Psychiatrist Name Role Phone Unavailable Primary Care Provider Unavailabl e Encounter Details Date Type Department Care Team (Latest Contact Info) Description 01/29/2021 Abstract [facility] CONVERSIONS Dental, Provider, DDS Social History [...] Description 10/09/2024 2:00 PM EDT Office Visit [facility]ULT [facility] [address] [place] [address] Patrick Cooneyaris [address] [place] [address] documented as of this encounter Visit Diagnoses Not on filedocumented in this encounter
[2024-10-06 22:47] LABS: TS Negative Control Passed; TS Panel A 0; TS Panel B 0; TS Positive Control Passed; TSpotTB Negative (Negative)
== END 2024-10-04 08:35 | disposition home or self-care (01) ==
LOC: HO.LAB 08:34
PROVIDERS: PCP Internal Medicine; Visit Provider Internal Medicine
DX: Z72.0 Tobacco use (principal)
CPT/HCPCS: 36415; 86481

== ENCOUNTER 2024-12-25 10:53 | Outpatient (AMB) | payer OTHER, SELFPAY ==
[2024-12-25 11:10] VITALS: BP 98/60; PULSE 71; RESP 18; TEMP 36.4; O2SAT 96
--- NOTE | 2024-12-25 11:10 | A.OFFPC_ITS ---
Vital Signs 12/25/24 11:10 Height 5 ft 11 in Weight 215 lb 2 oz BMI 30.0 BP 98/60 Blood Pressure Location Lt brachial Position Sitting Respiration 18 Pulse 71 Pulse Source Pulse Oximeter Temp 97.5 F Temp Source Temporal Artery Scan Pulse Oximetry (%) 96 Oxygen Delivery Method Room Air Intake Visit Reasons: hypercholesterol Bleacher Pulp Required: No Accompanied by: Self / Same As Patient Allergies haloperidol (From HALDOL) Allergy (Intermediate, Verified 12/25/24 11:11) TONGUE SWELLING Medication List - Last Reconciled 12/25/24 by Sherri Zepeda MD albuterol sulfate 90 mcg/actuation (Ventolin HFA) 2 puffs inhalation Q6H PRN aspirin (Adult Low Dose Aspirin) 81 mg PO DAILY atorvastatin 80 mg PO DAILY carboxymethylcellulose sodium 1% (Artificial Tears (carboxymethylcellulose)) 2 drps ophthalmic (eye) BID PRN carvedilol 3.125 mg PO BID fexofenadine (Karina Allergy) 180 mg PO DAILY fluoxetine 40 mg PO DAILY fluticasone propion-salmeterol 250-50 mcg/dose (Wixela Inhub) 1 inh inhalation BID fluticasone propionate 50 mcg/actuation (Flonase Allergy Relief) 2 sprays intranasal DAILY hydroxyzine pamoate 25 mg PO BID nitroglycerin 0.4 mg sublingual Q5M PRN quetiapine 300 mg PO BEDTIME quetiapine 100 mg PO DAILY ticagrelor (Brilinta) 90 mg PO BID Tobacco use date assessed: 12/25/24 Dental Screening Dental Screen Date: 12/25/24 Did you have a dental visit in the last 12 months?: Yes Did you have a dental problem in the last 6 months where you did not have access to dental care?: No Was dental information given to patient?: Patient has dentist [facility] Medical History Colon cancer screening Annual physical exam Overweight Hyperlipidemia Hypertensive cardiovascular disease Carotid stenosis Ischemic stroke H/O: HTN (hypertension) Anxiety Depression Clavicle fracture Mood disorder Alcoholism Bipolar 1 disorder Surgical History (Updated 12/25/24 @ 11:20 by Brandi Haley MA) S/P coronary artery stent placement History of carotid endarterectomy Hx of hand surgery Hx of hand surgery History of surgical procedure Family History Mother CVA (cerebral vascular accident) Maternal Grandmother Colon cancer Social History Household Members: Other Housing: Apartment Do you presently have visiting nurse or other home services: No Alcohol intake: current Alcohol intake frequency: 3 or more drinks per day Alcohol type: beer Comment: refusing quit 12/2024 Patient Tobacco Use Status: Current everyday Tobacco user Tobacco use type: Cigarette Cigarette Packs Per Day: 0.5 Cigarettes Per Day: 4 Years Smoked: 27 e-Cigarette/Vaping Use: Never Used Second Hand Smoke Exposure: Yes service: No Current occupational status: employed Cognitive needs: No Hearing needs: No Vision needs: Yes Questionnaire PHQ-9 Over the last 2 weeks, how often have you been bothered by any of the following problems? 1. Little interest or pleasure in doing things: several days 2. Feeling down, depressed, or hopeless: several days 3. Trouble falling or staying asleep, or sleeping too much: not at all 4. Feeling tired or having little energy: not at all 5. Poor appetite or overeating: not at all 6. Feeling bad about yourself - or that you are a failure or have let yourself or your family down: not at all 7. Trouble concentrating on things, such as reading the newspaper or watching television: not at all 8. Moving or speaking so slowly that other people could have noticed. Or the opposite - being so fidgety or restless that you have been moving around a lot more than usual: not at all 9. Thoughts that you would be better off or of hurting yourself in some way: not at all Total score: 2 Depression Screening Interpretation: Positive Depression Screening Done: Yes Source: Developed by Drs. Cl Fuller, Faustina Carrasquillo, Chetan Saha and colleagues, with an educational ethan from [employer]. Thrive Questionnaire Date Thrive assessed: 12/25/24 I am a: Patient What is your living situation today?: I have a steady place to live Within the past 12 months, did the food you bought not last and you didn't have the money to get more?: Never true Within the past 12 months, did you worry whether your food would run out before you got money to buy more?: Sometimes True Do you have trouble paying for medicines?: Yes Do you have trouble getting transportation to medical appointments?: No Do you have trouble paying your heating and electricity bill?: No Do you have trouble taking care of your child, family member or friend?: No Do you have trouble with day-to-day activities such as bathing, preparing meals, shopping, managing finances, etc.?: No Are you currently unemployed and looking for a job?: No Are you interested in more education?: No Please select the resources that you would like help with: Housing/Chcf Currently or been in a relationship where the following occur: No concerns reported THRIVE Score: 1 AUDIT C Alcohol Use Questionnaire (AUDIT-C) 1. How often do you have a drink containing alcohol?: Never 3. How often do you have six or more drinks on one occasion?: Never Total Score: 0 TEX-7 AMB Questionnaire TEX-7 Date TEX - 7 assessed: 12/25/24 Feeling nervous, anxious, or on edge: 1 = Several days Not being able to stop or control worryin = Several days Worrying too much about different things: 1 = Several days Trouble relaxin = Several days Being so restless that it is hard to sit still: 1 = Several days Becoming easily annoyed or irritable: 0 = Not at all Feeling afraid as if something awful might happen: 0 = Not at all Total TEX-7 score (0-4 normal; 5-9 mild; 10-14 moderate; 15-21 severe): 5 Source: Developed by Drs. Cl Fuller, Faustina Carrasquillo, Chetan Saha and colleagues, with an educational ethan from [employer]. Physical exam (Primary Care) Vital Signs: Last Vital Signs Temp 97.5 F 12/25/24 11:10 Pulse 71 12/25/24 11:10 Resp 18 12/25/24 11:10 BP 98/60 12/25/24 11:10 Pulse Ox 96 12/25/24 11:10 Oxygen Delivery Method Room Air 12/25/24 11:10 BMI result Body Mass Index 30.0 Tobacco/Smoking Status: Tobacco use Status Tobacco use date assessed 12/25/24 12/25/24 11:23 Patient Tobacco Use Status Current everyday Tobacco 12/25/24 11:23 Tobacco use type Cigarette 12/25/24 11:23 e-Cigarette/Vaping Use Never Used 12/25/24 11:23 PHQ-9: PHQ-9 Score PHQ-9: Total score 2 12/25/24 11:48 Depression Screening Interpretation: Positive Thrive Assessment: Date of Thrive Assessment Date Thrive assessed 12/25/24 12/25/24 11:23 Currently or been in a relationship where the following occur: No concerns reported Const General: alert; No acute distress Eyes Conjunctivae: conjunctivae normal Resp Auscultation: clear to auscultation bilaterally Cardio Rate: regular rate Rhythm: regular rhythm GI Inspection: Yes normal to inspection Extrem General: Yes normal to inspection and No edema Coding Level of Care Code Est Pt Level 4 (46316) Complex EM visit Add On G2211 Diagnoses CAD (coronary artery disease) I25.10 Bilateral carotid artery stenosis I65.23 Laterality: bilateral Pure hypercholesterolemia E78.00 Hyperlipidemia type: pure hypercholesterolemia Obesity (BMI 30.0-34.9) E66.811 GERD (gastroesophageal reflux disease) K21.9 Asthma, unspecified asthma severity, unspecified whether complicated, unspecified whether persistent J45.909 Asthma complication type: unspecified Asthma persistence: unspecified Asthma severity: unspecified severity Tobacco abuse Z72.0 Bipolar 1 disorder F31.9 Hypertension I10 Assessment & Plan Assessment & Plan (1) CAD (coronary artery disease): Comment: August 2024 Code(s): I25.10 - Atherosclerotic heart disease of [place] coronary artery without angina pectoris Category: Medical Plan: Control the cholesterol, weight, blood pressure, continue with aspirin 81 mg once a day (2) Carotid stenosis: Comment: 06/21/2020 - left carotid endarterectomy Code(s): I65.29 - Occlusion and stenosis of unspecified carotid artery Category: Medical Qualifiers: Laterality: bilateral Qualified Code(s): I65.23 - Occlusion and stenosis of bilateral carotid arteries Plan: Continue with aspirin 81 mg once a day (3) Hyperlipidemia: Code(s): E78.5 - Hyperlipidemia, unspecified Category: Medical Qualifiers: Hyperlipidemia type: pure hypercholesterolemia Qualified Code(s): E78.00 - Pure hypercholesterolemia, unspecified Plan: Avoid fried foods, chicken skin, eggs, butter margarine, pastries and meat. Be it pork or beef they have a lot of cholesterol LDL goal of less than 70 and triglyceride of less than 150 patient on atorvastatin 80 mg once a day patient needs a blood work (4) Obesity (BMI 30.0-34.9): Code(s): E66.811 - Obesity, class 1 Category: Medical Plan: Diet and exercise (5) GERD (gastroesophageal reflux disease): Code(s): K21.9 - Gastro-esophageal reflux disease without esophagitis Category: Medical Plan: Avoid the foods that causes that usually spicy foods, tomato products, juices, coffee, soda and foods that your sensitive to. After eating do not lie down, allow 3-4 hours before in lie down. And keep the head of bed above 30 degrees to avoid the acid from going up. (6) Asthma: Code(s): J45.909 - Unspecified asthma, uncomplicated Category: Medical Qualifiers: Asthma complication type: unspecified Asthma persistence: unspecified Asthma severity: unspecified severity Qualified Code(s): J45.909 - Unspecified asthma, uncomplicated Plan: Patient is strongly advised to stop smoking! (7) Tobacco abuse: Code(s): Z72.0 - Tobacco use Category: Medical Plan: Patient is advised to stop smoking patient point (8) Bipolar 1 disorder: Comment: CHD Code(s): F31.9 - Bipolar disorder, unspecified Category: Medical Plan: Continue with counseling and therapy (9) Hypertension: Code(s): I10 - Essential (primary) hypertension Category: Medical Plan: Continue with blood pressure medication. Decrease salt intake and exercise patient is on carvedilol 3.125 mg twice a day Plan History of Present Illness The patient is a 54-year-old male presenting for management of multiple cardiovascular conditions and smoking cessation. The patient has a history of cerebrovascular accident due to left carotid artery stenosis and hypertensive cardiovascular disease. He also has hypercholesterolemia and is a smoker, which exacerbates his cardiovascular risk. The patient has been diagnosed with coronary artery disease and experienced a non-ST elevation myocardial infarction (NSTEMI) in August 2024. A cardiac catheterization revealed proximal LAD 70% stenosis and first obtuse marginal 95% stenosis. He is currently undergoing cardiac rehabilitation and is on medications including aspirin, atorvastatin, and carvedilol. The patient has a history of bipolar disorder and is on fluoxetine and quetiapine for management. He also uses an inhaler for respiratory issues and has been advised to stop smoking to improve his overall health. Health Maintenance - Smoking cessation strongly advised - Cardiac rehabilitation ongoing - Blood work requested for cholesterol, sugar, and blood count - Fasting blood work planned - Vaccinations up to date, including tetanus and pneumonia Social History - Smoking: Patient smokes approximately four cigarettes a day - Exercise: Patient swims once a week Review of Systems - Cardiovascular: Reports history of heart attack and stent placement. Denies current chest pain. - Respiratory: Reports use of inhaler for respiratory issues. Denies current shortness of breath. - Neurological: Reports history of cerebrovascular accident. Denies current neurological symptoms. Physical Exam Results - Cardiac catheterization: Proximal LAD 70% stenosis, first obtuse marginal 95% stenosis Plan The patient will continue with aspirin 81 mg once a day and atorvastatin 80 mg daily to manage hypercholesterolemia, with a target LDL goal of less than 70 mg/dL and triglycerides less than 150 mg/dL. He is advised to continue carvedilol 3.125 mg twice a day for blood pressure management and to attend cardiac rehabilitation sessions regularly. Smoking cessation is strongly advised, and the patient is encouraged to stop smoking completely to reduce cardiovascular risk. The patient is also advised to maintain a healthy lifestyle, including diet and exercise, and to ensure adequate hydration. A fasting blood test is planned to assess cholesterol, blood sugar, and complete blood count. The patient is reminded to use nasal spray daily for sinus congestion and to rinse his mouth after using the inhaler. Patient was informed and verbally consented to the use of an ambient scribe for clinic note documentation during this visit. Discussion Notes During the consultation, I discussed the importance of managing cardiovascular risk factors, including controlling blood pressure and cholesterol levels. I emphasized the need for smoking cessation and encouraged the patient to stop smoking entirely. We reviewed the patient's current medications and the necessity of continuing them as prescribed. I also explained the need for a fasting blood test to monitor cholesterol, blood sugar, and complete blood count. Patient Instructions - Take aspirin 81 mg once daily. - Take atorvastatin 80 mg once daily. - Take carvedilol 3.125 mg twice daily. - Attend cardiac rehabilitation sessions regularly. - Stop smoking completely. - Maintain a healthy diet and exercise regularly. - Use nasal spray daily for sinus congestion. - Rinse mouth after using the inhaler. - Complete fasting blood test as scheduled. Orders: Orders Complete Blood Count Auto Diff Today I25.10 - Atherosclerotic heart disease of chicken [place] coronary artery without angina pectoris Lipid Panel Today E78.00 - Pure hypercholesterolemia, unspecified, I25.10 - Atherosclerotic heart disease of [place] coronary artery without angina pectoris Hemoglobin A1c Today I25.10 - Atherosclerotic heart disease of [place] coronary artery without angina pectoris Prostate Specific Antigen Scr Today I25.10 - Atherosclerotic heart disease of [place] coronary artery without angina pectoris B Type Natriuretic Peptide Today I25.10 - Atherosclerotic heart disease of [place] coronary artery without angina pectoris Ferritin Today I25.10 - Atherosclerotic heart disease of [place] coronary artery without angina pectoris Reticulocyte Count Today I25.10 - Atherosclerotic heart disease of [place] coronary artery without angina pectoris Comprehensive Met. Panel Today I25.10 - Atherosclerotic heart disease of [place] coronary artery without angina pectoris Thyroid Stimulating Hormone Today I25.10 - Atherosclerotic heart disease of [place] coronary artery without angina pectoris Free T4 (Free Thyroxine) Today I25.10 - Atherosclerotic heart disease of [place] coronary artery without angina pectoris Vitamin B12 and Folate Today I25.10 - Atherosclerotic heart disease of [place] coronary artery without angina pectoris IRON PROFILE Today I25.10 - Atherosclerotic heart disease of [place] coronary artery without angina pectoris UA w Microscopic Today I25.10 - Atherosclerotic heart disease of [place] coronary artery without angina pectoris Medications: Changed From ticagrelor (Brilinta) 90 mg PO BID 60 tabs 0RF To ticagrelor (Brilinta) started 08/2024 90 mg PO BID 60 tabs 0RF Refilled fluticasone propion-salmeterol 250-50 mcg/dose (Wixela Inhub) 1 inh inhalation BID 60 ea 12RF J45.909 - Unspecified asthma, uncomplicated fluticasone propionate 50 mcg/actuation (Flonase Allergy Relief) administer into each nostril 2 sprays intranasal DAILY 16 grams 0RF R09.81 - Nasal congestion
--- OUTSIDE RECORDS SUMMARY | 2024-12-25 12:10 | XMS_ITS | Clinical Summary ---
Author Organization [employer] [facility] Address [address] [place] [address] Care Team Providers Care Medicaid Collection Specialist Name Role Phone Unavailable Primary Care Provider Unavailabl e Allergies Active Allergy Reactions Criticality Noted Date Comments Haloperidol 04/20/2018 tongue swelling Medications FLUoxetine (PROzac) 40 MG capsule Take 40 mg by mouth Once per day. 4 Active hydrOXYzine pamoate (Vistaril) 25 MG capsule Take one (1) capsule by mouth three times a day, as needed Active ibuprofen 600 MG tablet TAKE 1 TABLET BY MOUTH two (2) times a day NEEDED FOR PAIN 4 Active naloxone (Narcan) 4 mg/0.1 mL nasal spray SPRAY ONCE INTO either NOSTRIL DIRECTED. call 911. IF no response IN 2 TO 3 MINUTES, REPEAT DOSE IN other NOSTRIL 4 Active Vivitrol injection 4 Active naltrexone (Depade) 50 MG tablet TAKE 1 TABLET BY MOUTH ONCE DAILY NEEDED FOR cravings 4 Active QUEtiapine (SEROquel) 300 MG tablet Take 300 mg by mouth at bedtime. 4 Active Ventolin HFA 108 (90 Base) MCG/ACT inhaler INHALE TWO PUFFS EVERY 6 HOURS NEEDED SHORTNESS OF BREATH OR FOR WHEEZING 5 Active Lipitor 80 MG tablet Take 80 mg by mouth. 5 Active Coreg 3.125 MG tablet Take 3.125 mg by mouth. 5 Active fluticasone (Flonase) 50 MCG/ACT nasal spray SPRAY TWICE INTO EACH NOSTRIL ONCE DAILY 5 Active fexofenadine (Karina) 180 MG tablet Take 180 mg by mouth. 5 Active Advair Diskus 250-50 MCG/ACT aerosol powder inhale one puffs twice daily Active nitroglycerin (Nitrostat) 0.[address] 0.4 mg under the tongue. Active polyvinyl alcohol (Liquifilm Tears) 1.4 % ophthalmic solution INSTILL 2 DROPS IN EACH EYE two (2) times a day NEEDED FOR DRY eyes Active ticagrelor (Brilinta) 90 MG tablet Take 90 mg by mouth. Active aspirin 81 MG EC tablet Take 81 mg by mouth. Active Active Problems Problem Noted Date Diagnosed Date Advanced periodontitis 05/12/2024 Dental calculus 09/24/2023 Periodontal disease 09/24/2023 Gingival bleeding 09/24/2023 Encounters Date Type Department Care Team Description 12/11/2024 9:00 AM EDT Office Visit [facility] [address] [place] [address] Caity Cooney 10/09/2024 2:00 PM EDT Office Visit [facility] [address] [place] [address] Caity Cooney Advanced periodontitis (Primary Dx); Dental [...] Sign Reading Time Taken Comments Blood Pressure 122/70 10/09/2024 1:47 PM EDT Pulse 72 09/24/2023 1:00 PM EDT Temperature - - Respiratory Rate - - Oxygen Saturation - - Inhaled Oxygen Concentration - - Weight - - Height - - Body Mass Index - - Plan of Treatment Upcoming Encounters Date Type Department Care Team (Late st Contact Info) Description 12/26/2024 11:00 AM EDT Office Visit [facility] [address] [place] [address] [place] [address] Health Maintenance Due Date Last Done Comments CT Colonography 1971 Colonoscopy 1971 Colorectal Cancer Screening 1971 Depression Screening 1971 FIT DNA/Cologuard 1971 FIT 1971 FOBT 1971 HIV Screening 1971 Lipid Panel 1971 SDOH Screening 1971 Sigmoidoscopy 1971 Disability Screening 1971 Alcohol/Substance Use Screening 1983 Hepatitis C Screening 08/07/1989 DTaP/Tdap/Td Vaccines (1 - Tdap) 08/07/1990 Hepatitis B Vaccines (1 of 3 - 19+ 3-dose series) 08/07/1990 Pneumococcal Vaccine: 50+ Years (1 of 2 - PCV) 08/07/1990 Zoster Vaccines (1 of 2) 08/07/2021 COVID-19 Vaccine (1 - season) 2024 Dental X-Ray: Full Mouth 01/31/2024 01/29/2021, 04/01 Dental Oral Exam 08/10/2024 02/10/2024, 05/2020, 04/20/2018 Dental Prophylaxis 11/11/2024 05/12/2024, 0 09/24/2023, 01/29/2021 Influenza Vaccine (#1) 2025 Tobacco Screening 10/09/2025 10/09/2024 Dental X-Ray: Bitewings 10/10/2025 10/10/19, 02/10/2024, 09/24/2023, Additional history exists RSV Patients and Patients Aged 60 years [...] Procedure Name Priority Date/Time Associated Diagnosis Comments NO CHARGE VISIT Routine 12/11/2024 9:00 AM EDT BITEWINGS - 2 RADIOGRAPHIC IMAGES Routine 10/09/2024 2:00 PM EDT 9,10,11 INTRAORAL - PERIAPICAL FIRST RADIOGRAPHIC IMAGE Routine 10/09/2024 2:00 PM EDT CASE PRESENTATION, DETAILED AND EXTENSIVE TREATMENT PLANNING Routine 10/09/2024 2:00 PM EDT Advanced periodontitis Dental calculus ORAL HYGIENE INSTRUCTIONS Routine 10/09/2024 2:00 PM EDT Advanced periodontitis Dental calculus UL PERIODONTAL SCALING AND ROOT PLANING - 4 OR MORE TEETH PER QUADRANT Routine 10/09/2024 2:00 PM EDT Advanced periodontitis Dental calculus PROPHYLAXIS - ADULT Routine 05/12/2024 1 :00 PM EST Dental calculus Advanced periodontitis PERIODIC ORAL EVALUATION - ESTABLISHED PATIENT Routine 02/10/2024 2:30 PM EDT Encounter for dental examination Dental calculus Periodontal disease INTRAORAL - COMPLETE SERIES OF RADIOGRAPHIC IMAGES Routine 01/29/2021 12:00 AM EDT from Last 3 Months or Most Recently Relevant to Health Maintenance Insurance [facility] MEDICAID STAND ADULT [facility]AL[facility] MEDICAID STAND ADULT
--- OUTSIDE RECORDS SUMMARY | 2024-12-25 12:10 | XMS_ITS | Clinical Summary ---
Author Organization [facility] it Address [address] [place] [address] Care Team Providers Care Supervisor Customer Services Name Role Phone Unavailable Primary Care Provider [...] Panel) 05/03/2022 Colorectal Cancer Screening: Colonoscopy 05/03/2022 HIV Screening 05/03/2022 Hepatitis C Screening 05/03/2022 Social Influencers of Health Screening 05/03/2022 COVID-19 Vaccine (1 - 2023-2 5 season) 2024 Depression Screening 05/31/2024 Influenza Vaccine (#1) 2025 HIB Vaccines Aged Out No longer [...]
== END 2024-12-25 12:02 | disposition home or self-care (01) ==
LOC: HO.HMCH 10:53
PROVIDERS: PCP Internal Medicine; Visit Provider Internal Medicine
DX: I25.10 Atherosclerotic heart disease of native coronary artery without angina pectoris (principal); E66.811 Obesity, class 1; F31.9 Bipolar disorder, unspecified; Z68.30 Body mass index [BMI] 30.0-30.9, adult; I65.23 Occlusion and stenosis of bilateral carotid arteries; E78.00 Pure hypercholesterolemia, unspecified; K21.9 Gastro-esophageal reflux disease without esophagitis; J45.909 Unspecified asthma, uncomplicated; Z72.0 Tobacco use; I10 Essential (primary) hypertension

== ENCOUNTER → 2024-12-25 10:53 | Outpatient (BNVA) | payer OTHER, SELFPAY | PROVIDERS: PCP Internal Medicine; Visit Provider Internal Medicine | DX: I25.10 Atherosclerotic heart disease of native coronary artery without angina pectoris (principal); E78.00 Pure hypercholesterolemia, unspecified; I65.23 Occlusion and stenosis of bilateral carotid arteries; E66.811 Obesity, class 1; K21.9 Gastro-esophageal reflux disease without esophagitis; J45.909 Unspecified asthma, uncomplicated; F31.9 Bipolar disorder, unspecified; I10 Essential (primary) hypertension; R09.81 Nasal congestion; F17.210 Nicotine dependence, cigarettes, uncomplicated; Z68.30 Body mass index [BMI] 30.0-30.9, adult | CPT/HCPCS: 99212 ==